=== PATIENT | female | born 1955 | race Caucasian/White ===

== ENCOUNTER 2018-04-17 14:16 | Emergency (ER) | payer OTHER ==
[2018-04-17 15:00] LABS: Absolute Lymphocytes (CBC) 0.7 K/uL (0.7-4.9); Absolute Monocytes 0.2 K/uL (0.1-1.3); Absolute Neutrophil 10.6 K/uL (1.8-8.0); Hematocrit 37.4 % (36.0-45.0); Lymphocytes % 6.1 % (15.3-44.8); MCH 31.2 pg (27.0-35.0); MCV 90.4 fL (80-100); MPV 8.7 fL (7.6-11.3); Monocytes % 1.5 % (3.3-12.3); RBC Red Blood Cell Count 4.14 M/uL (3.86-4.86)
--- NOTE | 2018-04-17 15:00 | ER ---
Nurse's Notes [facility] Name: Amna Whyte Age: 62 yrs Sex: Female : 1955 Arrival Date: 04/17/2018 Time: 14:20 Bed 4 Private MD: Diagnosis: Syncope and collapse;Encounter for adjustment and management of automatic implantable cardiac defibrillator Presentation: 04/17 14:33 Presenting complaint: EMS states: Pt had a syncopal episode due to weakness at home sg about 30 mins [employer], pt reports she felt her pacemaker defibrillator administer a shock x2, reports she was in the ER in [place] this morning and had been diagnosed with bronchitis and discharged to home. Transition of care: patient was not received from another setting of care. Onset of symptoms was April 17, 2018. Risk Assessment: Do you want to hurt yourself or someone else? Patient reports no desire to harm self or others. Initial Sepsis Screen: Does the patient meet any 2 criteria? RR > 20 per min. No. Patient's initial sepsis screen is negative. Does the patient have a suspected source of infection? Yes: Productive cough/pneumonia. 14:33 Method Of Arrival: EMS: [facility] sg 14:33 Acuity: BROOK 2 sg 14:40 Care prior to arrival: None. sg Historical: - Allergies: 14:38 Latex, Natural Rubber; sg 14:38 Cephalexin; sg - Home Meds: 14:51 amiodarone 200 mg Oral tab 1 tab once daily [Active]; Vitamin C Oral [Active]; ferrous sg gluconate 240 mg (27 mg iron) Oral tab [Active]; atorvastatin 10 mg oral tab 1 tab once daily [Active]; clopidogrel 75 mg oral tab 1 tab once daily [Active]; losartan 100 mg oral tab 1 tab once daily [Active]; carvedilol 25 mg oral tab 1 tab 2 times per day [Active]; ropinirole 0.25 mg oral tab 1 tab twice daily [Active]; aspirin 81 mg Oral TbEC 1 tab once daily [Active]; Toujeo SoloStar 300 unit/mL (1.5 mL) subcutaneous inpn 120 unit daily [Active]; Novolog 100 unit/mL Sub-Q soln 15 unit daily before each meal [Active]; torsemide 20 mg oral tab 3 tabs twice daily [Active]; - PMHx: 15:03 Hypertension; Diabetes - IDDM; Anemia; Dialysis; sg - PSHx: 14:38 CABG; ; sg - Immunization history:: Adult Immunizations up to date. - Social history:: Smoking status: Patient/guardian denies using tobacco. - Ebola Screening: : Patient negative for fever greater than or equal to 101.5 degrees Fahrenheit, and additional compatible Ebola Virus Disease symptoms Patient denies exposure to infectious person Patient denies travel to an Ebola-affected area in the 21 days before illness onset No symptoms or risks identified at this time. Screenin:40 Abuse screen: Denies threats or abuse. Denies injuries from another. Nutritional sg screening: No deficits noted. Tuberculosis screening: No symptoms or risk factors identified. Never had TB. Fall Risk None identified. Assessment: 14:41 General: Appears in no apparent distress. comfortable, well groomed, well developed, sg well nourished, Behavior is calm, cooperative, appropriate for age. Pain: Denies pain. Neuro: Level of Consciousness is awake, alert, obeys commands, Oriented to person, place, time, situation, Second Mate are equal bilaterally Moves all extremities. Speech is normal, Facial symmetry appears normal, Pupils are PERRLA. Cardiovascular: Capillary refill is brisk in bilateral fingers Patient's skin is warm and dry. Respiratory: Airway is patent Respiratory effort is even, labored, Respiratory pattern is regular, symmetrical, Breath sounds are coarse. GI: Abdomen is round non-distended, obese, Reports normal bowel habits, tolerance of fluids, tolerance of food. : No signs and/or symptoms were reported regarding the genitourinary system. EENT: No signs and/or symptoms were reported regarding the EENT system. Derm: Skin is intact, is thin, Skin is dry, Skin is pale, Skin temperature is warm. Musculoskeletal: No signs and/or symptoms reported regarding the musculoskeletal system. 15:10 Reassessment: pt reports feeling dizzy, EKG changes noted on the bedside monitor, pt sg unresponsive, a shock administered x2 via pt pacemaker defib, pt back to paced rhythm at this time, notified, pt family remains at bedside. no new orders recieved. 15:40 Reassessment: Patient appears in no apparent distress at this time. Patient and/or kr2 family updated on plan of care and expected duration. Pain level reassessed. Patient is alert, oriented x 3, equal unlabored respirations, skin warm/dry/pink. 16:17 Reassessment: Patient appears in no apparent distress at this time. Patient and/or sg family updated on plan of care and expected duration. Pain level reassessed. Patient is alert, oriented x 3, equal unlabored respirations, skin warm/dry/pink. notified pt reports feeling dizzy at this time v-fib noted on bedside monitor, pt defib x1, new orders received, pt medicated as ordered see EMAR. 17:00 Reassessment: Patient appears in no apparent distress at this time. Patient and/or sg family updated on plan of care and expected duration. Pain level reassessed. Patient is alert, oriented x 3, equal unlabored respirations, skin warm/dry/pink. Report given to [facility] for pt transport to [facility]. Vital Signs: 14:36 BP 105 / 62; Pulse 83; Resp 17; Temp 97.7; Pulse Ox 97% on R/A; Weight 120.2 kg (R); sg Pain 0/10; 16:05 BP 108 / 61; Pulse 88 MON; Resp 17; Pulse Ox 98% on 2 lpm NC; sg 16:05 Paced sg ED Course: 14:20 Patient arrived in ED. ss 14:20 Eliel Figueredo MD is Attending Physician. gs 14:33 Ramesh Hassan, JERAD is Primary Nurse. sg 14:36 Triage completed. sg 14:36 Arm band placed on. sg 14:40 Patient has correct armband on for positive identification. Placed in gown. Bed in low sg position. Call light in reach. Side rails up X2. court recording monitor on. Pulse ox on. NIBP on. offered warm blanket, pt refused at this time Head of bed elevated. 14:40 Initial lab(s) drawn, by me, sent to lab. First set of blood cultures drawn by me, sg held. Inserted saline lock: 20 gauge in left antecubital area, using aseptic technique. Blood collected. Patient maintains SpO2 saturation greater than 95% on room air. 14:45 No provider procedures requiring assistance completed. sg 14:50 CT completed. Patient moved to CT via stretcher. Patient moved back from CT. cw1 14:52 CT Head C Spine In Process Unspecified. EDMS 15:32 Notified ED physician of other patient having episodes of VTach, with kr2 pacer/defibrillator firing, Dr. Figueredo notified, no new orders at this time. 17:00 Patient transferred, IV remains in place. intact, No redness/swelling at site. sg Administered Medications: 16:17 Drug: Lidocaine Drip 2 mg/min Route: IV; Rate: calculated rate; Site: left antecubital; 17:03 Follow up: Response: No adverse reaction; Marked relief of symptoms; IV Status: sg Infusion continued upon transfer Outcome: 14:59 ER care complete, transfer ordered by . 17:00 Transferred by ground EMS to [facility], Transfer form completed. 17:00 Condition: report called to JERAD Saenz 17:00 Instructed on the need for admit, safety practices, Demonstrated understanding of instructions. 17:03 Patient left the ED. sg Signatures: Dispatcher [employer] EDPA Ramesh Hassan RN RN Michelle Mcintosh RN RN ss Woodley, Crystal cw1 Eliel Figueredo MD MD Suri Main RN RN kr2
--- NOTE | 2018-04-17 15:00 | EDPHYS ---
Physician Documentation [facility] Name: Amna Whyte Age: 62 yrs Sex: Female : 1955 Arrival Date: 04/17/2018 Time: 14:20 Bed 4 Private MD: ED Physician Eliel Figueredo HPI: 04/17 14:41 This 62 yrs old Female presents to ER via EMS with complaints of Syncope. gs 14:41 The patient has experienced syncope, became unresponsive, collapsed. Onset: The gs symptoms/episode began/occurred acutely, just prior to arrival. Duration: This was a single episode. Associated injury: Head/face:. Associated signs and symptoms: Pertinent positives: palpitations, defib fired x2. Current symptoms: Currently, the patient is not experiencing any symptoms. The patient has experienced similar episodes in the past, a few times. 14:41 The patient has been recently seen by a physician: ed dx bronchitis. gs Historical: - Allergies: 14:38 Latex, Natural Rubber; sg 14:38 Cephalexin; sg - Home Meds: 14:51 amiodarone 200 mg Oral tab 1 tab once daily [Active]; Vitamin C Oral [Active]; ferrous sg gluconate 240 mg (27 mg iron) Oral tab [Active]; atorvastatin 10 mg oral tab 1 tab once daily [Active]; clopidogrel 75 mg oral tab 1 tab once daily [Active]; losartan 100 mg oral tab 1 tab once daily [Active]; carvedilol 25 mg oral tab 1 tab 2 times per day [Active]; ropinirole 0.25 mg oral tab 1 tab twice daily [Active]; aspirin 81 mg Oral TbEC 1 tab once daily [Active]; Toujeo SoloStar 300 unit/mL (1.5 mL) subcutaneous inpn 120 unit daily [Active]; Novolog 100 unit/mL Sub-Q soln 15 unit daily before each meal [Active]; torsemide 20 mg oral tab 3 tabs twice daily [Active]; - PMHx: 15:03 Hypertension; Diabetes - IDDM; Anemia; Dialysis; sg - PSHx: 14:38 CABG; ; sg - Immunization history:: Adult Immunizations up to date. - Social history:: Smoking status: Patient/guardian denies using tobacco. - Ebola Screening: : Patient negative for fever greater than or equal to 101.5 degrees Fahrenheit, and additional compatible Ebola Virus Disease symptoms Patient denies exposure to infectious person Patient denies travel to an Ebola-affected area in the 21 days before illness onset No symptoms or risks identified at this time. ROS: 14:41 All other systems are negative. gs Exam: 14:41 Constitutional: This is a well developed, well nourished patient who is awake, alert, gs and in no acute distress. Head/Face: Normocephalic, atraumatic. Eyes: Pupils equal round and reactive to light, extra-ocular motions intact. Lids and lashes normal. Conjunctiva and sclera are non-icteric and not injected. Cornea within normal limits. Periorbital areas with no swelling, redness, or edema. ENT: Nares patent. No nasal discharge, no septal abnormalities noted. Tympanic membranes are normal and external auditory canals are clear. Oropharynx with no redness, swelling, or masses, exudates, or evidence of obstruction, uvula midline. Mucous membranes moist. Neck: Trachea midline, no thyromegaly or masses palpated, and no cervical lymphadenopathy. Supple, full range of motion without nuchal rigidity, or vertebral point tenderness. No Meningismus. Chest/axilla: Normal chest wall appearance and motion. Nontender with no deformity. No lesions are appreciated. Cardiovascular: Regular rate and rhythm with a normal S1 and S2. No gallops, murmurs, or rubs. Normal PMI, no JVD. No pulse deficits. 14:41 Respiratory: Lungs have equal breath sounds bilaterally, clear to auscultation and percussion. No rales, rhonchi or wheezes noted. No increased work of breathing, no retractions or nasal flaring. Abdomen/GI: Soft, non-tender, with normal bowel sounds. No distension or tympany. No guarding or rebound. No evidence of tenderness throughout. Back: No spinal tenderness. No costovertebral tenderness. Full range of motion. Skin: Warm, dry with normal turgor. Normal color with no rashes, no lesions, and no evidence of cellulitis. MS/ Extremity: Pulses equal, no cyanosis. Neurovascular intact. Full, normal range of motion. Neuro: Awake and alert, GCS 15, oriented to person, place, time, and situation. Cranial nerves II-XII grossly intact. Motor strength 5/5 in all extremities. Sensory grossly intact. Cerebellar exam normal. Normal gait. 14:41 ECG was reviewed by the Attending Physician. Vital Signs: 14:36 BP 105 / 62; Pulse 83; Resp 17; Temp 97.7; Pulse Ox 97% on R/A; Weight 120.2 kg (R); sg Pain 0/10; 16:05 BP 108 / 61; Pulse 88 MON; Resp 17; Pulse Ox 98% on 2 lpm NC; sg 16:05 Paced sg MDM: 14:20 Patient medically screened. gs 14:41 Differential Diagnosis: cardiac arrhythmia, emotional response, idiopathic syncope, gs vasovagal episode. Data reviewed: vital signs, nurses notes. Response to treatment: the patient's symptoms have resolved after treatment. ED course: pt request transfer to see dr frankel will see at [facility]. 04/17 14:21 Order name: Basic Metabolic Panel; Complete Time: 15:34 04/17 14:21 Order name: CBC with Diff; Complete Time: 16:35 04/17 14:21 Order name: PT-INR; Complete Time: 15:15 04/17 14:21 Order name: Troponin (emerg Dept Use Only); Complete Time: 15:34 04/17 14:27 Order name: ETOH Level; Complete Time: 15:34 04/17 15:07 Order name: Magnesium; Complete Time: 15:34 04/17 14:21 Order name: CT Head C Spine; Complete Time: 15:16 04/17 14:21 Order name: EKG; Complete Time: 14:22 04/17 14:21 Order name: Cardiac monitoring; Complete Time: 14:39 04/17 14:21 Order name: EKG - Nurse/Tech; Complete Time: 14:39 04/17 14:21 Order name: IV Saline Lock; Complete Time: 14:39 04/17 14:21 Order name: Labs collected and sent; Complete Time: 14:39 04/17 15:08 Order name: CBC Smear Scan; Complete Time: 16:35 EDNV 04/17 14:21 Order name: O2 Per Protocol; Complete Time: 14:39 04/17 14:21 Order name: O2 Sat Monitoring; Complete Time: 14:39 gs EC:41 Rate is 87 beats/min. Rhythm is regular. AL interval is prolonged. QRS interval is gs prolonged. Clinical impression: Cardiac ischemia. Interpreted by me. Administered Medications: 16:17 Drug: Lidocaine Drip 2 mg/min Route: IV; Rate: calculated rate; Site: left antecubital; sg 17:03 Follow up: Response: No adverse reaction; Marked relief of symptoms; IV Status: sg Infusion continued upon transfer Disposition: 04/17/18 14:59 Transfer ordered to Other Acute Care Facility. Diagnosis are Syncope and collapse, Encounter for adjustment and management of automatic implantable cardiac defibrillator. - Reason for transfer: Higher level of care. - Accepting physician is marlys. - Condition is Stable. - Problem is an ongoing problem. - Symptoms have improved. Critical care time excluding procedures: 14:41 Critical care time: Bedside Care: 10 minutes, Consultation: 10 minutes, Family gs Intervention: 10 minutes. Total time: 30 minutes Signatures: Dispatcher [employer] EDRamesh Chairez RN RN sg Starr, Gregory, MD MD gs Corrections: (The following items were deleted from the chart) 17:03 14:59 04/17/2018 14:59 Transfer ordered to Other Acute Care Facility. Diagnosis is sg Syncope and collapse; Encounter for adjustment and management of automatic implantable cardiac defibrillator. Reason for transfer: Higher level of care. Accepting physician is marlys. Condition is Stable. Problem is an ongoing problem. Symptoms have improved. gs
[2018-04-17 15:06] LABS: Protime INR 1.14
--- NOTE | 2018-04-17 15:14 | RAD REPORT ---
EXAM DESCRIPTION: CT - [id number] - 04/17/2018 2:52 pm CLINICAL HISTORY: Trauma, head and neck injury. Syncope. PAIN COMPARISON: No comparisons TECHNIQUE: Axial 5 mm thick images of the head were obtained. Axial 2 mm thick images of the cervical spine were obtained with sagittal and coronal reconstruction images generated and reviewed. All CT scans are performed using dose optimization technique as appropriate and may include automated exposure control or mA/KV adjustment according to patient size. FINDINGS: CT HEAD WITHOUT CONTRAST: No acute hemorrhage, hydrocephalus or extra-axial collection is identified.No areas of brain edema or midline shift. The paranasal sinuses and mastoids are essentially clear.The calvarium is intact. CT CERVICAL SPINE WITHOUT CONTRAST: No fracture or subluxation.No prevertebral soft tissues swelling is identified. IMPRESSION: No acute intracranial or cervical spine findings.
[2018-04-17 15:19] LABS: Potassium 4.4 mmol/L (3.5-5.1); Troponin (Emerg Dept Use Only) 0.06 ng/mL (0.0-0.045)
[2018-04-17 15:52] LABS: Blood Morphology Comment NOT SEEN (NOT SEEN); Platelet Estimate ADEQ; Urine White Blood Cell Casts OK
[2018-04-17] MEDS ORDERED: LIDOCAINE/D5W 2,000 MG/500 ML BAG IV ONE (16:23)
[2018-04-17 17:17] VITALS: TEMP 97.7
[2018-04-17 17:18] VITALS: BP 108/61; O2SAT 98
--- NOTE | 2018-04-17 20:20 | EKG ---
Test Date: 2018-04-17 Test Time: 14:19:50 Clinical Cytogenetics Director: RONEN MEASUREMENT RESULTS: Intervals: Rate: 87 PA: 240 QRSD: 110 QT: 408 QTc: 490 [place]: P: 68 PA: 240 QRS: -31 T: 140 INTERPRETIVE STATEMENTS: Sinus rhythm with 1st degree AV block with occasional premature ventricular complexes Left axis deviation Cannot rule out Anterior infarct, age undetermined Marked ST abnormality, possible lateral subendocardial injury Abnormal ECG Compared to ECG 01/15/2014 23:05:41 Ventricular premature complex(es) now present First degree AV block now present Left-axis deviation now present Myocardial infarct finding still present Electronically Signed On 04-17-18 20:20:13 PRIMER PRESS OPERATOR by Louis Valencia
== END 2018-04-17 17:03 ==
LOC: ER 14:16
DX: Z45.02 Encounter for adjustment and management of automatic implantable cardiac defibrillator (principal); R55 Syncope and collapse; I44.0 Atrioventricular block, first degree; I49.3 Ventricular premature depolarization; R94.31 Abnormal electrocardiogram [ECG] [EKG]; E11.9 Type 2 diabetes mellitus without complications; I10 Essential (primary) hypertension; D64.9 Anemia, unspecified; Z79.4 Long term (current) use of insulin; Z79.82 Long term (current) use of aspirin; Z79.899 Other long term (current) drug therapy; Z95.1 Presence of aortocoronary bypass graft
CPT/HCPCS: 36415; 70450; 72125; 80048; 80320; 83735; 84484; 85025; 85610; 93005; 96365; 99285; J2001

== ENCOUNTER 2018-09-05 10:40 | Emergency (ER) | payer OTHER ==
--- OUTSIDE RECORDS SUMMARY | 2018-09-05 10:45 | XMS REPORT | Clinical Summary ---
:1955 Author Organization [facility] Address [address] [place] [address] Care Team Providers Name Role Phone Joe Wallis MD Primary Care Provider Allergies Active Allergy Reactions Severity Noted Date Comments Cephalexin Itching 01/03/2015 Latex Other (See Comments) 01/03/2015 Macrolide Antibiotics 04/21/2018 Pt. Must avoid any medication that cause QT prolongation. Pt. has a defibrillator Per [employer] M[facility] Developer (Dr. Javier). Pt must not take macrolides=interaction w/defibrillator Medications Medication Sig Dispensed Refills Start Date End Date Status ascorbic acid, Take 100 mg 0 Active vitamin C, (vitamin by mouth C) 100 MG tablet daily. ferrous gluconate Take 240 mg 0 Active (FERGON) 324 MG by mouth tablet daily with breakfast. atorvastatin Take 10 mg by 0 Active (LIPITOR) 10 MG mouth daily. tablet clopidogrel Take 75 mg by 0 Active (PLAVIX) 75 mg mouth daily. tablet losartan (COZAAR) Take 100 mg 0 Active 100 MG tablet by mouth daily. carvedilol (COREG) Take 25 mg by 0 Active 25 MG tablet mouth 2 (two) times a day with meals. rOPINIRole (REQUIP) Take 0.25 mg 0 Active 0.25 MG tablet by mouth 2 (two) times a day. aspirin (ECOTRIN) Take 81 mg by 0 Active 81 MG enteric mouth daily. coated tablet insulin GLARGINE Inject 100 0 Active (TOUJEO SOLOSTAR Units under U-300 INSULIN) 300 the skin unit/mL (1.5 mL) nightly. insulin pen insulin ASPART Inject 15 0 Active (NovoLOG) 100 Units under unit/mL injection the skin 3 (three) times a day before meals. torsemide (DEMADEX) Take 60 mg by 0 Active 20 MG tablet mouth 2 (two) times a day. Three 20mg tabs twice daily amIODarone Take 200 mg 0 05/21/2018 Discontinued (PACERONE) 200 MG by mouth tablet daily. 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 Syncope 04/17/2018 Encounters Date Type Specialty Care Team Description 05/19/2018 Surgery Procedural Urrutia, Hector PCI stent [[id number] Cardiology MD Mayco (CPT)] 05/18/2018 Surgery Procedural Urrutia, Hector PCI stent [[id number] Cardiology MD Mayco (CPT)] 05/17/2018 Surgery Procedural Urrutia, Hector Left heart cath w lv Cardiology MD Mayco gram cors [[id number] (CPT)] 05/14/2018 - Hospital Encounter Intensive Care Curt Chaves Ventricular tachyarrhythmia (HCC) (Primary Dx); 05/21/2018 Sangeeth Dizziness; MD Benny Nausea and vomiting, intractability of vomiting not specified, unspecified vomiting type Harper Fuller MD Joglekar, Samir P., MD 04/22/2018 Documentation Nephrology Garrett Black MD 04/17/2018 - Hospital Encounter General Internal [facility] Carlos bnauelos, Syncope, unspecified 04/21/2018 Medicine syncope type (Primary Sander Huang Dx) MD Jani after 09/04/2017 Social History Tobacco Use Types Packs/Day Years Used Date Never Smoker Smokeless Tobacco: Never Used Comments: spouse smokes Alcohol Use Drinks/Week oz/Week Comments No Alcohol Habits Answer Date Recorded How often do you have a drink containing alcohol? Never 04/18/2018 How many drinks containing alcohol do you have on a typical Not asked day when you are drinking? How often do you have six or more drinks on one occasion? Not asked Sex Assigned at Date Recorded Not on file Job Start Date Occupation Industry Not on file Not on file Not on file Travel History Travel Start Travel End No recent travel history available. Last Filed Vital Signs Vital Sign Reading Time Taken Blood Pressure 130/62 05/21/2018 11:00 AM [employer] Pulse 58 05/21/2018 11:00 AM [employer] Temperature 37.5 C (99.5 F) 05/21/2018 8:00 AM [employer] Respiratory Rate 26 05/21/2018 11:00 AM [employer] Oxygen Saturation 96% 05/21/2018 11:00 AM [employer] Inhaled Oxygen Concentration - - Weight 105 kg (231 lb 7.7 oz) 05/21/2018 4:00 AM [employer] Height 165.1 cm (5' 5") 05/15/2018 12:00 AM [employer] Body Mass Index 38.52 05/21/2018 4:00 AM [employer] Plan of Treatment Health Maintenance Due Date Last Done Comments CERVICAL CANCER SCREENING 1974 BREAST CANCER SCREENING 2003 COLON CANCER SCREENING 2003 SHINGLES VACCINES (#1) 2003 65+ PNEUMOCOCCAL VACCINE (1 of 2 - PCV13) 2018 PNEUMOCOCCAL POLYSACCHARIDE VACCINE AGE 65 AND OVER 2018 INFLUENZA VACCINE 12/29/2018 Implants Implanted Type Area 911 Operator Device Shelf Model / Identifier Expiration Serial / Date Lot System Athrctmy Rotn 0.58in 135cm 1.5mm Rotalink [address] - [id number] Cardiovascular N/A: BS 02/12/2020 [id number] / Implanted: Qty: 1 on 05/19/2018 by Hector Urrutia MD Implants N/A INTERVENTIONAL / CARDIOLOGY [id number] System Athrctmy Rotn 0.58in 135cm 1.25mm Rotalink Pl - [id number] Cardiovascular N/A: BS 01/22/2020 [id number] / Implanted: Qty: 1 on 05/19/2018 by Hector Urrutia MD Implants N/A INTERVENTIONAL / CARDIOLOGY [id number] Stent Coronary Syst Synergy (Mr) 3.00mm X 16mm - [id number] Coronary Stents N /A: [facility] [place]09/2020 [id number] / Implanted: Qty: 1 on 05/19/2018 by Hector Urrutia MD N/A INTERVENTIONAL / CARDIOLOGY [id number] Procedures Procedure Name Priority Date/Time Associated Comments Diagnosis XR CHEST 1 VW PORTABLE Routine 05/21/2018 8:54 Results for this AM [employer] procedure are in the results section. POC GLUCOSE Routine 05/21/2018 7:17 Results for this AM [employer] procedure are in the results section. ESTIMATED GFR Routine 05/21/2018 3:40 Results for this AM [employer] procedure are in the results section. PARTIAL THROMBOPLASTIN Routine 05/21/2018 3:40 Results for this TIME (PTT) AM [employer] procedure are in the results section. PROTHROMBIN TIME WITH Routine 05/21/2018 3:40 Results for this INR AM [employer] procedure are in the results section. PHOSPHORUS LEVEL Routine 05/21/2018 3:40 Results for this AM [employer] procedure are in the results section. MAGNESIUM LEVEL Routine 05/21/2018 3:40 Results for this AM [employer] procedure are in the results section. IONIZED CALCIUM Routine 05/21/2018 3:40 Results for this AM [employer] procedure are in the results section. HC COMPLETE BLD COUNT Routine 05/21/2018 3:40 Results for this W/AUTO DIFF AM [employer] procedure are in the results section. BASIC METABOLIC PANEL Routine 05/21/2018 3:40 Results for this AM [employer] procedure are in the results section. POC GLUCOSE Routine 05/20/2018 8:48 Results for this PM [employer] procedure are in the results section. POC GLUCOSE Routine 05/20/2018 4:52 Results for this PM [employer] procedure are in the results section. ECG 12-LEAD Routine 05/20/2018 3:40 Results for this PM [employer] procedure are in the results section. POC GLUCOSE Routine 05/20/2018 12:19 Results for this PM [employer] procedure are in the results section. POC GLUCOSE Routine 05/20/2018 8:04 Results for this AM [employer] procedure are in the results section. POC GLUCOSE Routine 05/20/2018 4:53 Results for this AM [employer] procedure are in the results section. XR CHEST 1 VW PORTABLE Routine 05/20/2018 4:37 Results for this AM [employer] procedure are in the results section. ESTIMATED GFR Routine 05/20/2018 4:25 Results for this AM [employer] procedure are in the results section. PROTHROMBIN TIME WITH Routine 05/20/2018 4:25 Results for this INR AM [employer] procedure are in the results section. PARTIAL THROMBOPLASTIN Routine 05/20/2018 4:25 Results for this TIME (PTT) AM [employer] procedure are in the results section. PHOSPHORUS LEVEL Routine 05/20/2018 4:25 Results for this AM [employer] procedure are in the results section. MAGNESIUM LEVEL Routine 05/20/2018 4:25 Results for this AM [employer] procedure are in the results section. IONIZED CALCIUM Routine 05/20/2018 4:25 Results for this AM [employer] procedure are in the results section. HC COMPLETE BLD COUNT Routine 05/20/2018 4:25 Results for this W/AUTO DIFF AM [employer] procedure are in the results section. BASIC METABOLIC PANEL Routine 05/20/2018 4:25 Results for this AM [employer] procedure are in the results section. POC GLUCOSE Routine 05/20/2018 12:57 Results for this AM [employer] procedure are in the results section. POC GLUCOSE Routine 05/19/2018 10:02 Results for this PM [employer] procedure are in the results section. POC GLUCOSE Routine 05/19/2018 9:15 Results for this PM [employer] procedure are in the results section. POC GLUCOSE Routine 05/19/2018 8:05 Results for this PM [employer] procedure are in the results section. ACTIVATED CLOTTING Routine 05/19/2018 8:01 Results for this TIME, LOW RESPONSE PM [employer] procedure are in the results section. POC GLUCOSE Routine 05/19/2018 6:01 Results for this PM [employer] procedure are in the results section. POC GLUCOSE Routine 05/19/2018 5:15 Results for this PM [employer] procedure are in the results section. POC GLUCOSE Routine 05/19/2018 4:27 Results for this PM [employer] procedure are in the results section. CV PCI STENT Routine 05/19/2018 3:52 Results for this PM [employer] procedure are in the results section. ACTIVATED CLOTTING Routine 05/19/2018 3:41 Results for this TIME, LOW RESPONSE PM [employer] procedure are in the results section. ACTIVATED CLOTTING Routine 05/19/2018 3:32 Results for this TIME, LOW RESPONSE PM [employer] procedure are in the results section. ACTIVATED CLOTTING Routine 05/19/2018 3:27 Results for this TIME, LOW RESPONSE PM [employer] procedure are in the results section. ACTIVATED CLOTTING Routine 05/19/2018 2:56 Results for this TIME, LOW RESPONSE PM [employer] procedure are in the results section. POC GLUCOSE Routine 05/19/2018 2:06 Results for this PM [employer] procedure are in the results section. POC GLUCOSE Routine 05/19/2018 12:57 Results for this PM [employer] procedure are in the results section. POC GLUCOSE Routine 05/19/2018 12:08 Results for this PM [employer] procedure are in the results section. POC GLUCOSE Routine 05/19/2018 11:07 Results for this AM [employer] procedure are in the results section. POC GLUCOSE Routine 05/19/2018 10:35 Results for this AM [employer] procedure are in the results section. POC GLUCOSE Routine 05/19/2018 10:09 Results for this AM [employer] procedure are in the results section. LIDOCAINE LEVEL STAT 05/19/2018 9:27 Results for this AM [employer] procedure are in the results section. POC GLUCOSE Routine 05/19/2018 9:10 Results for this AM [employer] procedure are in the results section. POC GLUCOSE Routine 05/19/2018 8:04 Results for this AM [employer] procedure are in the results section. POC GLUCOSE Routine 05/19/2018 6:58 Results for this AM [employer] procedure are in the results section. POC GLUCOSE Routine 05/19/2018 4:54 Results for this AM [employer] procedure are in the results section. ESTIMATED GFR Routine 05/19/2018 4:30 Results for this AM [employer] procedure are in the results section. HEPATITIS B SURFACE Routine 05/19/2018 4:30 Results for this ANTIGEN AM [employer] procedure are in the results section. PHOSPHORUS LEVEL Routine 05/19/2018 4:30 Results for this AM [employer] procedure are in the results section. MAGNESIUM LEVEL Routine 05/19/2018 4:30 Results for this AM [employer] procedure are in the results section. IONIZED CALCIUM Routine 05/19/2018 4:30 Results for this AM [employer] procedure are in the results section. HC COMPLETE BLD COUNT Routine 05/19/2018 4:30 Results for this W/AUTO DIFF AM [employer] procedure are in the results section. BASIC METABOLIC PANEL Routine 05/19/2018 4:30 Results for this AM [employer] procedure are in the results section. POC GLUCOSE Routine 05/19/2018 3:57 Results for this AM [employer] procedure are in the results section. POC GLUCOSE Routine 05/19/2018 3:00 Results for this AM [employer] procedure are in the results section. POC GLUCOSE Routine 05/19/2018 1:57 Results for this AM [employer] procedure are in the results section. POC GLUCOSE Routine 05/19/2018 1:20 Results for this AM [employer] procedure are in the results section. POC GLUCOSE Routine 05/18/2018 11:55 Results for this PM [employer] procedure are in the results section. POC GLUCOSE Routine 05/18/2018 11:18 Results for this PM [employer] procedure are in the results section. POC GLUCOSE Routine 05/18/2018 10:04 Results for this PM [employer] procedure are in the results section. POC GLUCOSE Routine 05/18/2018 8:40 Results for this PM [employer] procedure are in the results section. URINALYSIS SCREEN AND Routine 05/18/2018 5:40 Results for this MICROSCOPY, WITH REFLEX PM [employer] procedure are in TO CULTURE the results section. GRAM STAIN Routine 05/18/2018 5:21 Results for this PM [employer] procedure are in the results section. URINE CULTURE Routine 05/18/2018 5:21 Results for this PM [employer] procedure are in the results section. POC GLUCOSE Routine 05/18/2018 5:20 Results for this PM [employer] procedure are in the results section. POC GLUCOSE Routine 05/18/2018 2:27 Results for this PM [employer] procedure are in the results section. CV PCI STENT Routine 05/18/2018 1:16 Results for this PM [employer] procedure are in the results section. POC GLUCOSE Routine 05/18/2018 11:23 Results for this AM [employer] procedure are in the results section. XR ABDOMEN 1 VW Routine 05/18/2018 10:57 Results for this AM [employer] procedure are in the results section. POC GLUCOSE Routine 05/18/2018 10:28 Results for this AM [employer] procedure are in the results section. POC GLUCOSE Routine 05/18/2018 9:04 Results for this AM [employer] procedure are in the results section. POC GLUCOSE Routine 05/18/2018 8:05 Results for this AM [employer] procedure are in the results section. POC GLUCOSE Routine 05/18/2018 6:53 Results for this AM [employer] procedure are in the results section. POC GLUCOSE Routine 05/18/2018 6:21 Results for this AM [employer] procedure are in the results section. POC GLUCOSE Routine 05/18/2018 4:57 Results for this AM [employer] procedure are in the results section. ESTIMATED GFR Routine 05/18/2018 4:00 Results for this AM [employer] procedure are in the results section. MAGNESIUM LEVEL Routine 05/18/2018 4:00 Results for this AM [employer] procedure are in the results section. IONIZED CALCIUM Routine 05/18/2018 4:00 Results for this AM [employer] procedure are in the results section. HC COMPLETE BLD COUNT Routine 05/18/2018 4:00 Results for this W/AUTO DIFF AM [employer] procedure are in the results section. BASIC METABOLIC PANEL Routine 05/18/2018 4:00 Results for this AM [employer] procedure are in the results section. LIDOCAINE LEVEL Timed 05/18/2018 4:00 Results for this AM [employer] procedure are in the results section. POC GLUCOSE Routine 05/18/2018 3:56 Results for this AM [employer] procedure are in the results section. XR CHEST 1 VW PORTABLE Routine 05/18/2018 3:55 Results for this [employer] procedure are in the results section. POC GLUCOSE Routine 05/18/2018 2:59 Results for this AM [employer] procedure are in the results section. POC GLUCOSE Routine 05/18/2018 1:53 Results for this AM [employer] procedure are in the results section. POC GLUCOSE Routine 05/18/2018 1:01 Results for this [employer] procedure are in the results section. POC GLUCOSE Routine 05/17/2018 11:01 Results for this PM [employer] procedure are in the results section. POC GLUCOSE Routine 05/17/2018 9:24 Results for this PM [employer] procedure are in the results section. ACTIVATED CLOTTING Routine 05/17/2018 7:43 Results for this TIME, LOW RESPONSE PM [employer] procedure are in the results section. POC GLUCOSE Routine 05/17/2018 7:15 Results for this PM [employer] procedure are in the results section. POC GLUCOSE Routine 05/17/2018 5:41 Results for this PM [employer] procedure are in the results section. CV LEFT HEART CATH LV Routine 05/17/2018 5:16 Results for this GRAM WITH CORS PM [employer] procedure are in the results section. POC GLUCOSE Routine 05/17/2018 2:56 Results for this PM [employer] procedure are in the results section. POC GLUCOSE Routine 05/17/2018 2:04 Results for this PM [employer] procedure are in the results section. POC GLUCOSE Routine 05/17/2018 1:05 Results for this PM [employer] procedure are in the results section. POC GLUCOSE Routine 05/17/2018 12:07 Results for this PM [employer] procedure are in the results section. POC GLUCOSE Routine 05/17/2018 10:51 Results for this [employer] procedure are in the results section. ECG 12-LEAD Routine 05/17/2018 8:59 Results for this [employer] procedure are in the results section. POC GLUCOSE Routine 05/17/2018 8:10 Results for this AM [employer] procedure are in the results section. XR CHEST 1 VW PORTABLE Routine 05/17/2018 4:29 Results for this AM [employer] procedure are in the results section. ESTIMATED GFR Routine 05/17/2018 3:00 Results for this AM [employer] procedure are in the results section. MAGNESIUM LEVEL Routine 05/17/2018 3:00 Results for this AM [employer] procedure are in the results section. IONIZED CALCIUM Routine 05/17/2018 3:00 Results for this AM [employer] procedure are in the results section. HC COMPLETE BLD COUNT Routine 05/17/2018 3:00 Results for this W/AUTO DIFF AM [employer] procedure are in the results section. LIDOCAINE LEVEL Routine 05/17/2018 3:00 Results for this AM [employer] procedure are in the results section. COMPREHENSIVE METABOLIC Routine 05/17/2018 3:00 Results for this PANEL [employer] procedure are in the results section. POC GLUCOSE Routine 05/16/2018 8:29 Results for this PM [employer] procedure are in the results section. ESTIMATED GFR STAT 05/16/2018 5:40 Results for this PM [employer] procedure are in the results section. MAGNESIUM LEVEL STAT 05/16/2018 5:40 Results for this PM [employer] procedure are in the results section. IONIZED CALCIUM STAT 05/16/2018 5:40 Results for this PM [employer] procedure are in the results section. BASIC METABOLIC PANEL STAT 05/16/2018 5:40 Results for this PM [employer] procedure are in the results section. POC GLUCOSE Routine 05/16/2018 4:43 Results for this PM [employer] procedure are in the results section. POC GLUCOSE Routine 05/16/2018 11:39 Results for this [employer] procedure are in the results section. ECG 12-LEAD Routine 05/16/2018 9:52 Results for this [employer] procedure are in the results section. POC GLUCOSE Routine 05/16/2018 7:47 Results for this [employer] procedure are in the results section. ESTIMATED GFR Routine 05/16/2018 2:35 Results for this [employer] procedure are in the results section. COMPREHENSIVE METABOLIC Routine 05/16/2018 2:35 Results for this PANEL [employer] procedure are in the results section. MAGNESIUM LEVEL Routine 05/16/2018 2:35 Results for this AM [employer] procedure are in the results section. IONIZED CALCIUM Routine 05/16/2018 2:35 Results for this [employer] procedure are in the results section. HC COMPLETE BLD COUNT Routine 05/16/2018 2:35 Results for this W/AUTO DIFF AM [employer] procedure are in the results section. POC GLUCOSE Routine 05/15/2018 8:56 Results for this PM [employer] procedure are in the results section. POC GLUCOSE Routine 05/15/2018 5:40 Results for this PM [employer] procedure are in the results section. POC GLUCOSE Routine 05/15/2018 5:07 Results for this PM [employer] procedure are in the results section. POC GLUCOSE Routine 05/15/2018 11:29 Results for this [employer] procedure are in the results section. XR CHEST 1 VW PORTABLE Routine 05/15/2018 9:45 Results for this AM [employer] procedure are in the results section. URINALYSIS SCREEN AND STAT 05/15/2018 9:00 Results for this MICROSCOPY, WITH REFLEX AM [employer] procedure are in TO CULTURE the results section. URINE CULTURE STAT 05/15/2018 9:00 Results for this AM [employer] procedure are in the results section. ECG 12-LEAD Routine 05/15/2018 8:13 Results for this AM [employer] procedure are in the results section. ECG 12-LEAD Routine 05/15/2018 8:13 Results for this AM [employer] procedure are in the results section. POC GLUCOSE Routine 05/15/2018 7:44 Results for this AM [employer] procedure are in the results section. POC GLUCOSE Routine 05/15/2018 5:00 Results for this AM [employer] procedure are in the results section. TROPONIN Routine 05/15/2018 3:30 Results for this AM [employer] procedure are in the results section. ESTIMATED GFR Routine 05/15/2018 3:30 Results for this AM [employer] procedure are in the results section. COMPREHENSIVE METABOLIC Routine 05/15/2018 3:30 Results for this PANEL [employer] procedure are in the results section. PARTIAL THROMBOPLASTIN Routine 05/15/2018 3:30 Results for this TIME (PTT) AM [employer] procedure are in the results section. PROTHROMBIN TIME WITH Routine 05/15/2018 3:30 Results for this INR AM [employer] procedure are in the results section. PHOSPHORUS LEVEL Routine 05/15/2018 3:30 Results for this AM [employer] procedure are in the results section. MAGNESIUM LEVEL Routine 05/15/2018 3:30 Results for this AM [employer] procedure are in the results section. IONIZED CALCIUM Routine 05/15/2018 3:30 Results for this AM [employer] procedure are in the results section. HC COMPLETE BLD COUNT Routine 05/15/2018 3:30 Results for this W/AUTO DIFF AM [employer] procedure are in the results section. POC GLUCOSE Routine 05/15/2018 12:19 Results for this [employer] procedure are in the results section. TROPONIN Timed 05/14/2018 11:00 Results for this PM [employer] procedure are in the results section. ECG 12-LEAD STAT 05/14/2018 10:09 Results for this [employer] procedure are in the results section. ECG 12-LEAD STAT 05/14/2018 9:41 Results for this [employer] procedure are in the results section. XR CHEST 1 VW PORTABLE STAT 05/14/2018 9:19 Results for this [employer] procedure are in the results section. CT HEAD WO CONTRAST STAT 05/14/2018 8:24 Results for this [employer] procedure are in the results section. ECG 12-LEAD STAT 05/14/2018 7:40 Results for this [employer] procedure are in the results section. MAGNESIUM LEVEL STAT 05/14/2018 7:40 Results for this [employer] procedure are in the results section. ESTIMATED GFR STAT 05/14/2018 7:40 Results for this [employer] procedure are in the results section. B NATRIURETIC PEPTIDE STAT 05/14/2018 7:40 Results for this [employer] procedure are in the results section. LIPASE LEVEL STAT 05/14/2018 7:40 Results for this [employer] procedure are in the results section. TROPONIN STAT 05/14/2018 7:40 Results for this [employer] procedure are in the results section. CREATINE KINASE, TOTAL STAT 05/14/2018 7:40 Results for this (CPK) [employer] procedure are in the results section. COMPREHENSIVE METABOLIC STAT 05/14/2018 7:40 Results for this PANEL [employer] procedure are in the results section. PARTIAL THROMBOPLASTIN STAT 05/14/2018 7:40 Results for this TIME (PTT) PM [employer] procedure are in the results section. PROTHROMBIN TIME WITH STAT 05/14/2018 7:40 Results for this INR [facility] [employer] procedure are in the results section. HC COMPLETE BLD COUNT STAT 05/14/2018 7:40 Results for this W/AUTO DIFF [facility] [employer] procedure are in the results section. ECG ED PRELIMINARY Routine 05/14/2018 7:37 Results for this INTERPRETATION [facility] [employer] procedure are in the results section. ECG ED PRELIMINARY Routine 05/14/2018 7:37 Results for this INTERPRETATION [facility] [employer] procedure are in the results section. ECG ED PRELIMINARY Routine 05/14/2018 7:37 Results for this INTERPRETATION [facility] [employer] [employer] procedure are in the results section. KS CRITICAL CARE, E/M Routine 05/14/2018 7:37 Results for this 30-74 MINUTES [facility] [employer] procedure are in the results section. POC GLUCOSE Routine 04/21/2018 11:43 Results for this AM [employer] procedure are in the results section. POC GLUCOSE Routine 04/21/2018 9:38 Results for this [facility] [employer] procedure are in the results section. POC GLUCOSE Routine 04/21/2018 7:37 Results for this [facility] [employer] procedure are in the results section. TROPONIN Routine 04/21/2018 6:10 Results for this [facility] [employer] [employer] procedure are in the results section. ESTIMATED GFR Routine 04/21/2018 6:10 Results for this [employer] procedure are in the results section. COMPREHENSIVE METABOLIC Routine 04/21/2018 6:10 Results for this PANEL [facility] [employer] [employer] procedure are in the results section. HC COMPLETE BLD COUNT Routine 04/21/2018 6:10 Results for this W/AUTO DIFF [facility] [employer] procedure are in the results section. POC GLUCOSE Routine 04/20/2018 8:49 Results for this [facility] [employer] procedure are in the results section. POC GLUCOSE Routine 04/20/2018 4:27 Results for this [facility] [employer] procedure are in the results section. POC GLUCOSE Routine 04/20/2018 1:04 Results for this [facility] [employer] procedure are in the results section. POC GLUCOSE Routine 04/20/2018 9:01 Results for this [facility] [employer] procedure are in the results section. POC GLUCOSE Routine 04/20/2018 6:34 Results for this [facility] [employer] procedure are in the results section. ESTIMATED GFR Routine 04/20/2018 5:30 Results for this [employer] procedure are in the results section. PARTIAL THROMBOPLASTIN Routine 04/20/2018 5:30 Results for this TIME (PTT) [facility] [employer] [employer] procedure are in the results section. PROTHROMBIN TIME WITH Routine 04/20/2018 5:30 Results for this INR [facility] [employer] procedure are in the results section. PHOSPHORUS LEVEL Routine 04/20/2018 5:30 Results for this [employer] procedure are in the results section. MAGNESIUM LEVEL Routine 04/20/2018 5:30 Results for this [employer] procedure are in the results section. IONIZED CALCIUM Routine 04/20/2018 5:30 Results for this [facility] [employer] procedure are in the results section. HC COMPLETE BLD COUNT Routine 04/20/2018 5:30 Results for this W/AUTO DIFF [facility] [employer] procedure are in the results section. BASIC METABOLIC PANEL Routine 04/20/2018 5:30 Results for this [employer] procedure are in the results section. HEPATITIS B SURFACE AB, Routine 04/20/2018 5:30 Results for this QUANTITATIVE [employer] procedure are in the results section. HEPATITIS B SURFACE Routine 04/20/2018 5:30 Results for this ANTIBODY [facility] [employer] procedure are in the results section. HEPATITIS B SURFACE Routine 04/20/2018 5:30 Results for this ANTIGEN [facility] [employer] procedure are in the results section. POC GLUCOSE Routine 04/20/2018 5:20 Results for this [facility] [employer] procedure are in the results section. POC GLUCOSE Routine 04/20/2018 4:08 Results for this [employer] procedure are in the results section. XR CHEST 1 VW PORTABLE Routine 04/20/2018 3:58 Results for this [employer] procedure are in the results section. POC GLUCOSE Routine 04/20/2018 3:01 Results for this [facility] [employer] procedure are in the results section. POC GLUCOSE Routine 04/20/2018 1:54 Results for this [employer] procedure are in the results section. POC GLUCOSE Routine 04/20/2018 12:48 Results for this [employer] procedure are in the results section. POC GLUCOSE Routine 04/19/2018 11:59 Results for this [facility] [employer] procedure are in the results section. POC GLUCOSE Routine 04/19/2018 10:37 Results for this [facility] [employer] procedure are in the results section. POC GLUCOSE Routine 04/19/2018 9:20 Results for this [facility] [employer] procedure are in the results section. POC GLUCOSE Routine 04/19/2018 9:19 Results for this [facility] [employer] procedure are in the results section. POC GLUCOSE Routine 04/19/2018 4:25 Results for this [facility] [employer] procedure are in the results section. POC GLUCOSE Routine 04/19/2018 11:05 Results for this [facility] [employer] procedure are in the results section. POC GLUCOSE Routine 04/19/2018 9:08 Results for this [employer] procedure are in the results section. ECG 12-LEAD Routine 04/19/2018 8:18 [facility] [employer] [employer] POC GLUCOSE Routine 04/19/2018 7:04 Results for this [facility] [employer] procedure are in the results section. POC GLUCOSE Routine 04/19/2018 6:04 Results for this [employer] procedure are in the results section. POC GLUCOSE Routine 04/19/2018 4:48 Results for this [employer] procedure are in the results section. XR CHEST 1 VW PORTABLE Routine 04/19/2018 4:29 Results for this [employer] procedure are in the results section. ESTIMATED GFR Routine 04/19/2018 4:00 Results for this [employer] procedure are in the results section. COMPREHENSIVE METABOLIC Routine 04/19/2018 4:00 Results for this PANEL [facility] [employer] procedure are in the results section. TROPONIN Routine 04/19/2018 4:00 Results for this [employer] procedure are in the results section. MAGNESIUM LEVEL Routine 04/19/2018 4:00 Results for this [facility] [employer] procedure are in the results section. PROTHROMBIN TIME WITH Routine 04/19/2018 4:00 Results for this INR [facility] [employer] procedure are in the results section. PHOSPHORUS LEVEL Routine 04/19/2018 4:00 Results for this [facility] [employer] procedure are in the results section. IONIZED CALCIUM Routine 04/19/2018 4:00 Results for this [facility] [employer] procedure are in the results section. HC COMPLETE BLD COUNT Routine 04/19/2018 4:00 Results for this W/AUTO DIFF [facility] [employer] procedure are in the results section. POC GLUCOSE Routine 04/19/2018 3:03 Results for this [facility] [employer] procedure are in the results section. POC GLUCOSE Routine 04/19/2018 1:52 Results for this [employer] procedure are in the results section. POC GLUCOSE Routine 04/19/2018 1:04 Results for this [facility] [employer] procedure are in the results section. US ABDOMEN COMPLETE Routine 04/19/2018 12:54 Results for this [employer] procedure are in the results section. POC GLUCOSE Routine 04/18/2018 11:57 Results for this [facility] [employer] [employer] procedure are in the results section. POC GLUCOSE Routine 04/18/2018 11:10 Results for this [facility] [employer] procedure are in the results section. POC GLUCOSE Routine 04/18/2018 9:59 Results for this [facility] [employer] procedure are in the results section. POC GLUCOSE Routine 04/18/2018 9:01 Results for this [facility] [employer] procedure are in the results section. POC GLUCOSE Routine 04/18/2018 8:11 Results for this [facility] [employer] procedure are in the results section. POC GLUCOSE Routine 04/18/2018 7:17 Results for this [facility] [employer] procedure are in the results section. LIPASE LEVEL STAT 04/18/2018 6:30 Results for this [facility] [employer] procedure are in the results section. AMYLASE LEVEL STAT 04/18/2018 6:30 Results for this [facility] [employer] [employer] procedure are in the results section. ESTIMATED GFR STAT 04/18/2018 6:30 Results for this [facility] [employer] procedure are in the results section. BETA HYDROXYBUTYRATE STAT 04/18/2018 6:30 Results for this [facility] [employer] procedure are in the results section. BASIC METABOLIC PANEL STAT 04/18/2018 6:30 Results for this [facility] [employer] procedure are in the results section. POC GLUCOSE Routine 04/18/2018 5:19 Results for this [facility] [employer] procedure are in the results section. ECHOCARDIOGRAM 2D Routine 04/18/2018 5:18 Results for this COMPLETE W MMODE [facility] [employer] [employer] procedure are in SPECTRAL COLOR DOPPLER the results (27078) section. TROPONIN STAT 04/18/2018 4:49 Results for this [facility] [employer] procedure are in the results section. LIDOCAINE LEVEL STAT 04/18/2018 4:49 Results for this [facility] [employer] [employer] procedure are in the results section. ARTERIAL BLOOD GAS Routine 04/18/2018 4:49 Results for this [facility] [employer] procedure are in the results section. HEPATITIS B SURFACE AB, Routine 04/18/2018 4:49 Results for this QUANTITATIVE [facility] [employer] procedure are in the results section. KS INSERT Routine 04/18/2018 4:27 Syncope, Results for this CATH,ART,PERCUT,SHORTTE [facility] [employer] [employer] unspecified syncope procedure are in RM type the results section. ARTERIAL BLOOD GAS STAT 04/18/2018 3:49 Results for this [facility] [employer] [employer] procedure are in the results section. POC GLUCOSE Routine 04/18/2018 12:51 Results for this [facility] [employer] [employer] procedure are in the results section. TROPONIN STAT 04/18/2018 12:11 Results for this [facility] [employer] [employer] procedure are in the results section. POC GLUCOSE Routine 04/18/2018 9:06 Results for this [facility] [employer] [employer] procedure are in the results section. POC GLUCOSE Routine 04/18/2018 8:01 Results for this [facility] [employer] [employer] procedure are in the results section. POC GLUCOSE Routine 04/18/2018 7:02 Results for this [facility] [employer] procedure are in the results section. POC GLUCOSE Routine 04/18/2018 6:07 Results for this [facility] [employer] [employer] procedure are in the results section. ECG 12-LEAD Routine 04/18/2018 5:29 Results for this [facility] [employer] [employer] procedure are in the results section. POC GLUCOSE Routine 04/18/2018 5:05 Results for this [facility] [employer] [employer] procedure are in the results section. POC GLUCOSE Routine 04/18/2018 4:09 Results for this [facility] [employer] [employer] procedure are in the results section. POC GLUCOSE Routine 04/18/2018 3:24 Results for this [facility] [employer] procedure are in the results section. XR CHEST 1 VW PORTABLE Routine 04/18/2018 3:02 Results for this [facility] [employer] [employer] procedure are in the results section. HEMOGLOBIN A1C Timed 04/18/2018 2:45 Results for this [facility] [employer] procedure are in the results section. ESTIMATED GFR Timed 04/18/2018 2:45 Results for this [facility] [employer] procedure are in the results section. BETA HYDROXYBUTYRATE STAT 04/18/2018 2:45 Results for this [employer] procedure are in the results section. PARTIAL THROMBOPLASTIN Timed 04/18/2018 2:45 Results for this TIME (PTT) [facility] [employer] [employer] procedure are in the results section. PROTHROMBIN TIME WITH Timed 04/18/2018 2:45 Results for this INR [facility] [employer] [employer] procedure are in the results section. PHOSPHORUS LEVEL Timed 04/18/2018 2:45 Results for this [facility] [employer] procedure are in the results section. IONIZED CALCIUM Timed 04/18/2018 2:45 Results for this [facility] [employer] [employer] procedure are in the results section. TROPONIN Timed 04/18/2018 2:45 Results for this [employer] procedure are in the results section. LACTIC ACID LEVEL, Timed 04/18/2018 2:45 Results for this SEPSIS - NOW AND REPEAT [facility] [employer] [employer] procedure are in 2X EVERY 3 HOURS the results section. THYROID STIMULATING Timed 04/18/2018 2:45 Results for this HORMONE [facility] [employer] procedure are in the results section. CBC WITH PLATELET AND Timed 04/18/2018 2:45 Results for this DIFFERENTIAL [facility] [employer] procedure are in the results section. MAGNESIUM LEVEL Timed 04/18/2018 2:45 Results for this [facility] [employer] [employer] procedure are in the results section. COMPREHENSIVE METABOLIC Timed 04/18/2018 2:45 Results for this PANEL [facility] [employer] [employer] procedure are in the results section. LIDOCAINE LEVEL Timed 04/18/2018 2:45 Results for this [facility] [employer] [employer] procedure are in the results section. POC GLUCOSE Routine 04/18/2018 2:27 Results for this [facility] [employer] procedure are in the results section. POC GLUCOSE Routine 04/18/2018 1:13 Results for this [facility] [employer] procedure are in the results section. CONSULT TO OSTOMY CARE Routine 04/17/2018 11:57 NURSE [facility] TROPONIN Timed 04/17/2018 11:50 Results for this [facility] [employer] [employer] procedure are in the results section. LACTIC ACID LEVEL, Timed 04/17/2018 11:50 Results for this SEPSIS - NOW AND REPEAT [facility] [employer] [employer] procedure are in 2X EVERY 3 HOURS the results section. POC GLUCOSE Routine 04/17/2018 11:28 Results for this [facility] [employer] [employer] procedure are in the results section. BLOOD CULTURE, AEROBIC Routine 04/17/2018 9:44 Results for this & ANAEROBIC [facility] [employer] [employer] procedure are in the results section. POC GLUCOSE Routine 04/17/2018 9:36 Results for this [facility] [employer] [employer] procedure are in the results section. BLOOD CULTURE, AEROBIC Routine 04/17/2018 9:35 Results for this & ANAEROBIC [facility] [employer] [employer] procedure are in the results section. POC GLUCOSE Routine 04/17/2018 8:09 Results for this [facility] [employer] [employer] procedure are in the results section. CT HEAD WO CONTRAST STAT 04/17/2018 8:03 Results for this [facility] [employer] procedure are in the results section. XR CHEST 1 VW PORTABLE STAT 04/17/2018 7:21 Results for this [facility] [employer] procedure are in the results section. LIDOCAINE LEVEL Routine 04/17/2018 7:00 Results for this [facility] [employer] procedure are in the results section. THYROID STIMULATING Routine 04/17/2018 7:00 Results for this HORMONE [facility] [employer] [employer] procedure are in the results section. ESTIMATED GFR STAT 04/17/2018 7:00 Results for this [facility] [employer] procedure are in the results section. TYPE AND SCREEN Routine 04/17/2018 7:00 Results for this [facility] [employer] [employer] procedure are in the results section. B NATRIURETIC PEPTIDE STAT 04/17/2018 7:00 Results for this [facility] [employer] procedure are in the results section. TROPONIN STAT 04/17/2018 7:00 Results for this [facility] [employer] procedure are in the results section. COMPREHENSIVE METABOLIC STAT 04/17/2018 7:00 Results for this PANEL [facility] [employer] [employer] procedure are in the results section. LACTIC ACID LEVEL STAT 04/17/2018 7:00 Results for this [facility] [employer] procedure are in the results section. PARTIAL THROMBOPLASTIN STAT 04/17/2018 7:00 Results for this TIME (PTT) [facility] [employer] [employer] procedure are in the results section. PROTHROMBIN TIME WITH STAT 04/17/2018 7:00 Results for this INR [facility] [employer] [employer] procedure are in the results section. PHOSPHORUS LEVEL STAT 04/17/2018 7:00 Results for this [employer] procedure are in the results section. MAGNESIUM LEVEL STAT 04/17/2018 7:00 Results for this [facility] [employer] procedure are in the results section. IONIZED CALCIUM STAT 04/17/2018 7:00 Results for this [facility] [employer] procedure are in the results section. HC COMPLETE BLD COUNT STAT 04/17/2018 7:00 Results for this W/AUTO DIFF [facility] [employer] procedure are in the results section. ECG 12-LEAD STAT 04/17/2018 6:58 Results for this [facility] [employer] procedure are in the results section. POC GLUCOSE Routine 04/17/2018 6:50 Results for this [employer] procedure are in the results section. after 09/04/2017 Results XR Chest 1 Vw Portable (05/21/2018 8:54 AM [employer])Only the most recent of10 resultswithin the time period is included. 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 There is cardiomegaly, mediastinal widening and bilateral pulmonary vascular congestion with minimal edema. [facility]-[id number] Performing Organization Address City/[facility]/Zipcode Phone Number [facility] [address] [place] [address] POC glucose (05/21/2018 7:17 AM [employer])Only the most recent of112 resultswithin the time period is included. POC glucose 281 (H) 65 - 99 mg/dL [facility] Comment: HOSPITAL RN Notified Meter ID: [id number] Cloud Infrastructure Architect: Mart Partida Performing Organization Address [facility] Facility[facility] Phone Number [facility] DEPARTMENT OF PATHOLOGY [address] [place] [address] Estimated GFR (05/21/2018 3:40 AM [employer])Only the most recent of15 resultswithin the time period is included. Estimated GFR 8 (A) mL/min/1.73 m2 [facility] Comment: [facility] CatergoryUnitsInterpretation G1 >=90 Normal or high G2 60-89Mildly decreased [id number] to moderately decreased [id number] to severely decreased G4 15-29Severely decreased G5 <15Kidney failure The eGFR was calculated using the Chronic Kidney Disease Epidemiology Collaboration (CKD-EPI) equation. Interpretation is based on recommendations of the National Kidney Foundation-Kidney Disease Outcomes Quality Initiative (NKF-KDOQI) published in 2014. Specimen Plasma specimen Performing Organization Address [facility] Facility[facility] Phone Number [facility] DEPARTMENT OF PATHOLOGY [address] [place] [address] AND GENOMIC MEDIC[facility] [address] Partial thromboplastin time, activated (05/21/2018 3:40 AM [employer])Only the most recent of7 resultswithin the time period is included. PTT 33.3 23.0 - 36.0 sec [facility] Comment: [facility] PTT therapeutic range for unfractionated heparin is 61.0-112.0 seconds which corresponds to Anti-Xa 0.3-0.7 U/ml. Specimen Blood Performing Organization Address City/[facility]/Zipcode Phone Number [facility] DEPARTMENT OF PATHOLOGY [address] [place] [address] Prothrombin time with INR (05/21/2018 3:40 AM [facility])Only the most recent of8 resultswithin the time period is included. Prothrombin time 14.1 11.5 - 14.[address] [facility] INR 1.1 [facility] Comment: [facility] The International Normalized Ratio (INR) is a therapeutic monitoring tool for patients who are stable on oral anticoagulant therapy. An INR of 2.0-3.0 is suggested for deep vein thrombosis/pulmonary embolism. Specimen Blood Performing Organization Address City/[facility] Facility[facility] Phone Number [facility] DEPARTMENT OF PATHOLOGY [address] [place] [address] CBC with platelet and differential (05/21/2018 3:40 AM [employer])Only the most recent of13 resultswithin the time period is included. WBC 8.1 4.5 - 11.0 k/uL [facility] RBC 3.29 (L) 4.20 - 5.50 m/uL [facility] HGB 10.0 (L) 12.0 - 16.0 g/dL [facility] HCT 29.5 (L) 37.0 - 47.0 % [facility] MCV 89.7 82.0 - 100.[address] [facility] MCH 30.4 27.0 - 34.[address] [facility] MCHC 33.9 31.0 - 37.0 g/dL [facility] RDW - SD 41.4 37.0 - 55.[address] [facility] MPV 10.7 6.9 - 11.[address] [facility] Platelet count 268 150 - 400 K/uL [facility] Nucleated RBC 0.00 /[address] [facility] Neutrophils 67.1 39.0 - 69.0 % [facility] Lymphocytes 19.7 (L) 25.0 - 45.0 % [facility] Monocytes 10.2 (H) 0.0 - 10.0 % [facility] Eosinophils 2.0 0.0 - 5.0 % [facility] Basophils 0.5 0.0 - 1.0 % [facility] Immature granulocytes 0.5 0.0 - 1.0 % [facility] Specimen Blood Performing Organization Address City/[facility] Facility[facility] Phone Number [facility] DEPARTMENT OF PATHOLOGY [address] [place] [address] [place] [address] HOSPITAL Phosphorus level (05/21/2018 3:40 AM [facility])Only the most recent of8 resultswithin the time period is included. Phosphorus 5.8 (H) 2.4 - 4.5 mg/dL [facility] Specimen Plasma specimen Performing Organization Address [facility] Facilitycowi Phone Number [facility] DEPARTMENT OF PATHOLOGY [address] [place] [address] Magnesium level (05/21/2018 3:40 AM [facility])Only the most recent of13 resultswithin the time period is included. Magnesium 2.1 1.6 - 2.4 mg/dL [facility] Specimen Plasma specimen Performing Organization Address City/[facility] Facility[facility] Phone Number [facility] DEPARTMENT OF PATHOLOGY [address] [place] [address] Ionized calcium (05/21/2018 3:40 AM [employer])Only the most recent of12 resultswithin the time period is included. pH 7.[address] [facility] Ionized calcium 1.02 (L) 1.11 - 1.32 mmol/L [facility] Specimen Plasma specimen Performing Organization Address City/[facility] Facilitycode Phone Number [facility] DEPARTMENT OF PATHOLOGY [id number] [place] [address] Basic metabolic panel (05/21/2018 3:40 AM [facility])Only the most recent of7 resultswithin the time period is included. Sodium 134 (L) 135 - 148 mEq/L [facility] Potassium 3.9 3.5 - 5.0 mEq/L [facility] Chloride 97 (L) 98 - 112 mEq/L [facility] CO2 21 (L) 24 - 31 mEq/L [facility] Anion gap 16@ANIO (H) 7 - 15 mEq/L [facility] BUN 59 (H) 8 - 23 mg/dL [facility] Creatinine 5.31 (H) 0.50 - 0.90 mg/dL [facility] Glucose 286 (H) 65 - 99 mg/dL [facility] Calcium 8.5 (L) 8.8 - 10.2 mg/dL [facility] Specimen Plasma specimen Performing Organization Address [facility] Phone Number [facility] DEPARTMENT OF PATHOLOGY [address] [place] [address] ECG 12 lead (05/20/2018 3:40 PM [employer])Only the most recent of10 resultswithin the time period is included. Ventricular rate 61 [facility] Atrial rate 61 [facility] KS interval 240 [facility] QRSD interval 110 [facility] QT interval 460 [facility] QTC interval 463 [facility] P axis 1 62 [facility] QRS axis 1 -12 [facility] T wave axis 158 [facility] EKG impression Sinus rhythm with 1st degree AV block-Incomplete left bundle branch block-Marked ST abnormality, possible lateral subendocardial injury- Abnormal ECG-In automated comparison with ECG of 18-DEC-2018 08:59,-Incomplete left bundle branch block is now [facility] MUSE present-Minimal criteria for Anterior infarct are no longer present- Narrative Performed At Performing Organization Address City/State/Zipcode Phone Number [facility] [address] [place] [address] Activated clotting time, low response (05/19/2018 8:01 PM ASSOCIATE MERCHANT)Only the most recent of6 resultswithin the time period is included. Activated clotting time, 137 89 - 169 sec [facility] low response Comment: [facility] Meter ID: [id number] Cloud Infrastructure Architect: Dario Partida Performing Organization Address City/State/Zipcode Phone Number [facility] DEPARTMENT OF PATHOLOGY [address] [place] [address] AND GENOMIC MEDICINE [facility] [id number] [place] [address] HOSPITAL Cv laboratory inspector procedure (05/19/2018 3:52 PM ASSOCIATE MERCHANT) Narrative Performed At PROCEDURE: PCI of RCA CUPID A4 [place] micro-puncture set was used to gain access to the right femoral artery using ultrasound guidance. Itwas exchanged for a 6 [place] short sheath. I used a 6 [place] 3DRC guide with sideholes to cannulate the RCA. I advanced a rota floppy wire into the distal RCA. I attempted to perform rotational atherectomy with a 1.5 mm colby at 185,000 RPM. However, the colby would not advance. I exchanged my rota floppy wire for a rota-wire extra support.( I had to advance a Luge wire wire into the distal RCA. I advanced a 1.2 mm x 8 mm Mini-Trek balloon into the distal RCA and exchanged the Luge were for the Rota wire extra support.) I then introduced a 1.25 mm burrr and performed rotational atherectomy of the ostial RCA at 185,000 RPM. I made 2 passes. I then introduced the 1.5 mm colby and performed rotational atherectomy of the RCA At 185,000 RPM with 2 passes. I then advanced a 2.5 mm x 12 mm Emerge balloon and exchanged the rota floppy wire for a High Torque floppy extra support wire. I performed PTCA of the ostium of the RCA at 10 TAWNY. I then advanced a 3.0 mm x 16 mm Synergy stent in the ostium of the RCA at 20 TAWNY. I post-dilated the stent using a 3.5 mm x 15 mm NC Emerge balloon inflated to 17 TAWNY. The procedure was a success with 0% residual stenosis and JASPREET-3 flow upon completion. Performing Organization Address City/[facility]/Zipcode Phone Number [facility] [address] [place] [address] Lidocaine level (05/19/2018 9:27 AM ASSOCIATE MERCHANT)Only the most recent of6 resultswithin the time period is included. Lidocaine 2.83 1.50 - 5.00 ug/mL [facility] Specimen Blood Performing Organization Address City/[facility]/Zipcode Phone Number [facility] DEPARTMENT OF PATHOLOGY AND [address] [place] [address] [address] Hepatitis B surface antigen (05/19/2018 4:30 AM ASSOCIATE MERCHANT)Only the most recent of2 resultswithin the time period is included. Hepatitis B surface Ag Non-reactive Non-reactive [facility] Specimen Blood Performing Organization Address [facility]/Zipcode Phone Number [facility] DEPARTMENT OF PATHOLOGY [address] [place] [address] AND [facility] [address] [place] [address] HOSPITAL Urinalysis screen and microscopy, with reflex to culture (05/18/2018 5:40 PM ASSOCIATE MERCHANT)Only the most recent of2 resultswithin the time period is included. Specimen site [facility] Color, UA Yellow [facility] Appearance, UA Cloudy [facility] Specific gravity, UA 1.025 1.001 - 1.[address] [facility] pH, UA 5.0 5.0 - 9.[address] [facility] Protein, UA Negative Negative [facility] Glucose, UA Negative Negative [facility] Ketones, UA Negative Negative [facility] Bilirubin, UA Negative Negative [facility] Blood, UA Large (A) Negative [facility] Nitrite, UA Negative Negative [facility] Urobilinogen, UA <2.0 <2.0 E.U./dL [facility] Leukocyte esterase, UA Large (A) Negative [facility] Epithelial cells, UA 3 /HPF [facility] WBC, UA 72 (H) 0 - 4 /HPF [facility] RBC, UA >200 (H) 0 - 5 /HPF [facility] Bacteria, UA Few None seen [facility] WBC clumps, UA Few (A) [facility] Yeast, UA Few (A) [facility] Yeast with pseudohyphae, UA None seen [facility] Hyaline casts, UA 2-5 /LPF [facility] Specimen Urine Performing Organization Address [facility] Phone Number [facility] DEPARTMENT OF PATHOLOGY [address] [place] [address] AND [facility] [id number] [place] [address] HOSPITAL Gram stain (05/18/2018 5:21 PM ASSOCIATE MERCHANT) Gram stain result Few WBC's [facility] Few Gram positive rods Moderate Yeast Comment: Specimen Information Specimen Source: Urine Specimen Site: Reyes Specimen Urine - Reyes Performing Organization Address [facility] Phone Number [facility] DEPARTMENT OF PATHOLOGY AND [address] [place] [address] Urine culture (05/18/2018 5:21 PM ASSOCIATE MERCHANT)Only the most recent of2 resultswithin the time period is included. Urine culture isolate Mixed jose <=10-3 col/cc [facility] Comment: Specimen Information Specimen Source: Urine Specimen Site: Reyes Specimen Urine - Reyes Performing Organization Address [facility]/Zipcode Phone Number [facility] DEPARTMENT OF PATHOLOGY AND [address] [place] [address] Cv laboratory inspector procedure (05/18/2018 1:16 PM ASSOCIATE MERCHANT) Narrative Performed At PCI of three affiliated LAD through the JONES: CUPID A 4 [place] micro-puncture set was used to gain access to the left radial artery. I introduced a 6 [place] JONES catheter and canulated the JONES to LAD. I advanced a Luge wire into the three affiliated LAD which turnout to be a CAGE OPERATOR. This was in a small portion of the vessel.The calcific nature of the vessel Would require rotational atherectomy. I decided against proceeding further. Will treat medically for now. Performing Organization Address [facility] Phone Number [facility] [address] [place] [address] XR Abdomen 1 Vw (05/18/2018 10:57 AM ASSOCIATE MERCHANT) Narrative Performed At EXAMINATION: XR ABDOMEN 1 VW RADIANT INDICATION: constipation COMPARISON: 07/01/2008 IMPRESSION: A catheter overlies the pelvis and left lower abdomen. Nonobstructive bowel gas pattern. Stool burden is within normal limits. Spondylosis. [facility]-[id number] Procedure Note Interface, Radiology Results Incoming - 05/18/2018 11:22 AM ASSOCIATE MERCHANT EXAMINATION: XR ABDOMEN 1 VW INDICATION: constipation COMPARISON: 07/01/2008 IMPRESSION: A catheter overlies the pelvis and left lower abdomen. Nonobstructive bowel gas pattern. Stool burden is within normal limits. Spondylosis. [facility]-[id number] Performing Organization Address [facility] Phone Number [facility] [address] [place] [address] Cv laboratory inspector procedure (05/17/2018 5:16 PM ASSOCIATE MERCHANT) Impressions Performed At 1. Three-vessel coronary artery disease CUPID 2. Patent JONES to LAD 3. Occluded SVG 4. Known Severe LV systolic dysfunction. PLAN: 1. PCI of the three affiliated LAD through the JONES 2. PCI of the RCA. PROCEDURE: I was unable to cannulate the RCA with an AL 0.75 guide. I was able to cannulate the RCA with a 3DRC guide. I advanced a Luge wire into the distal RCA. I introduced a 2.0 mm x 15 mm Emerge balloon and performed angioplasty of the proximal RCA at 10 TAWNY. I introduced a 2.75 mm x 15 mm NC Emerge balloon and performed angioplasty of the proximal RCA at 10 TAWNY. Due to the calcific nature the lesion remained unchanged. I was also unable to advance a cutting balloon. I plan to bring her back and consider rotational atherectomy. Narrative Performed At This is Dr. Mayco Urrutia dictating a cardiac catheterization. CUPID PROCEDURE: The right groin was prepared and draped in the usual sterile fashion and local anesthesia given. A 4 [place] micro-puncture set was used to gain access to the right femoral artery using ultrasound guidance.A 6 [place] short sheath was placed in the right femoral artery using the seldinger technique.Selective cine coronary arteriography was performed in the various left and right anterior oblique projections using manual injections of Visipaque contrast on the JL4 and JR4 diagnostic catheter. An AL 0.75 catheter was used to visualized the RCA. Subsequently using a JR4 catheter to selectively engage and visualize an occluded saphenous vein graft. I then advanced the JR4 catheter into the left subclavian artery. I exchanged it for a JONES catheter for visualization of the JONES to LAD. Subsequently a 6 [place] pigtail catheter was advanced into the left ventricle and a left ventriculogram was performed in the right anterior oblique projection. Pressures were recorded during pullback of the catheter from the left ventricle into ascending aorta. Following this an aortogram was then performed in the left anterior oblique projection. All this the catheters were removed and hemostasis was obtained via manual pressure. FINDINGS: 1. Left main trunk: Left main trunk is a large-caliber vessel which contains a distal 20% stenosis 2. Left anterior descending artery:The left anterior descending artery is occluded proximally. 3. Left circumflex:Left circumflex is occluded in its proximal portion. 4. Right coronary artery: The right coronary artery is a large caliber dominant vessel which provides a small atrial branch. There is a moderate right ventricular branch in its mid portion and bifurcates distally into a moderate posterior descending artery branch And a moderate posterior ventricular branch. The RCA contains an ostial 95% stenosis. 5. JONES to LAD: Widely Patent. [place] LAD contains severe diffuse disease. 6. SVG: Occluded SVG. 7. Left ventriculogram:Not performed. Known ejection fraction of 20% to 25%. Performing Organization Address City/State/Zipcode Phone Number [facility] [address] [place] [address] Comprehensive metabolic panel (05/17/2018 3:00 AM ASSOCIATE MERCHANT)Only the most recent of8 resultswithin the time period is included. Sodium 137 135 - 148 mEq/L [facility] Potassium 3.8 3.5 - 5.0 mEq/L [facility] Chloride 102 98 - 112 mEq/L [facility] CO2 20 (L) 24 - 31 mEq/L [facility] Anion gap 15@ANIO 7 - 15 mEq/L [facility] BUN 57 (H) 8 - 23 mg/dL [facility] Creatinine 2.65 (H) 0.50 - 0.90 mg/dL [facility] Glucose 193 (H) 65 - 99 mg/dL [facility] Calcium 8.7 (L) 8.8 - 10.2 mg/dL [facility] Protein 5.9 (L) 6.3 - 8.3 g/dL [facility] Albumin 3.2 (L) 3.5 - 5.0 g/dL [facility] A/G ratio 1.2 0.7 - 3.[address] [facility] Alkaline phosphatase 91 35 - 104 U/L [facility] AST 24 10 - 35 U/L [facility] ALT 42 5 - 50 U/L [facility] Total bilirubin 0.4 0.2 - 1.2 mg/dL [facility] Specimen Plasma specimen Performing Organization Address City/[facility]/Zipcode Phone Number [facility] DEPARTMENT OF PATHOLOGY [address] [place] [address] [place] [address] HOSPITAL Troponin (05/15/2018 3:30 AM ASSOCIATE MERCHANT)Only the most recent of10 resultswithin the time period is included. Troponin <0.30 0.00 - 0.30 ng/mL [facility] Comment: HOSPITAL 0.11 - 1.49 ng/mlMay indicate increased risk of acute coronary syndrome. >=1.5 ng/mlConsistent with acute myocardial infarction. The diagnostic value of a single normal or non-diagnostic result is questionable.Serial samples at 2-6 hour intervals are required to rule out acute myocardial injury. Specimen Plasma specimen Performing Organization Address City/[facility]/Zipcode Phone Number [facility] DEPARTMENT OF PATHOLOGY [address] [place] [address] [id number] [place] [address] CT Head Wo Contrast (05/14/2018 8:24 PM ASSOCIATE MERCHANT)Only the most recent of2 resultswithin the time period is included. Narrative Performed At EXAMINATION:CT HEAD WO CONTRAST RADIANT CLINICAL HISTORY:dizziness COMPARISON:CT head 04/17/2018. TECHNIQUE: Noncontrast head CT performed using radiation dose reduction techniques.Technical factors are evaluated and adjusted to ensure appropriate moderation of exposure.Automated dose management technology is applied to adjust radiation exposure while achieving a diagnostic quality image. FINDINGS: No significant interval change appearing since the prior CT from 04/17/2018. No acute intra or extra-axial hemorrhage identified. The florez-white matter differentiation is preserved. Similar appearing hypoattenuating probable prominent perivascular spaces are noted within the basal ganglia bilaterally, right greater than left. The thalami, midbrain, matthias and cervicomedullary junction are unremarkable. No mass, mass effect, or midline shift is seen. Ventricles and sulci are normal in appearance for patient's age.Basal cisterns are patent. Scattered vascular calcifications are noted throughout the V4 segments and cavernous internal carotid arteries bilaterally. Calvarium is intact. Prior cataract lens extractions are noted bilaterally. The visualized paranasal sinuses are unremarkable. The mastoid air cells and middle ear cavities are clear. Scalp soft tissues are unremarkable. IMPRESSION: No acute intracranial abnormality identified, unchanged when compared with prior CT from 04/17/2018.. [facility]-[id number] Procedure Note Hm Interface, Radiology Results Incoming - 05/14/2018 8:36 PM ASSOCIATE MERCHANT EXAMINATION: CT HEAD WO CONTRAST CLINICAL HISTORY: dizziness COMPARISON: CT head 04/17/2018. TECHNIQUE: Noncontrast head CT performed using radiation dose reduction techniques. Technical factors are evaluated and adjusted to ensure appropriate moderation of exposure. Automated dose management technology is applied to adjust radiation exposure while achieving a diagnostic quality image. FINDINGS: No significant interval change appearing since the prior CT from 04/17/2018. No acute intra or extra-axial hemorrhage identified. The florez-white matter differentiation is preserved. Similar appearing hypoattenuating probable prominent perivascular spaces are noted within the basal ganglia bilaterally, right greater than left. The thalami, midbrain, matthias and cervicomedullary junction are unremarkable. No mass, mass effect, or midline shift is seen. Ventricles and sulci are normal in appearance for patient's age. Basal cisterns are patent. Scattered vascular calcifications are noted throughout the V4 segments and cavernous internal carotid arteries bilaterally. Calvarium is intact. Prior cataract lens extractions are noted bilaterally. The visualized paranasal sinuses are unremarkable. The mastoid air cells and middle ear cavities are clear. Scalp soft tissues are unremarkable. IMPRESSION: No acute intracranial abnormality identified, unchanged when compared with prior CT from 04/17/2018.. [facility]-[id number] Performing Organization Address City/[facility]/Zipcode Phone Number [facility] [address] [place] [address] B natriuretic peptide (05/14/2018 7:40 PM ASSOCIATE MERCHANT)Only the most recent of2 resultswithin the time period is included. BNP 877 (H) 0 - 100 pg/mL [facility] Specimen Blood Performing Organization Address [facility] Phone Number [facility] DEPARTMENT OF PATHOLOGY [address] [place] [address] Lipase level (05/14/2018 7:40 PM ASSOCIATE MERCHANT)Only the most recent of2 resultswithin the time period is included. Lipase 37 13 - 60 U/L [facility] Specimen Plasma specimen Performing Organization Address [facility] Phone Number [facility] DEPARTMENT OF PATHOLOGY [address] [place] [address] Creatine kinase, total (CPK) (05/14/2018 7:40 PM ASSOCIATE MERCHANT) Creatine kinase 95 26 - 192 U/L [facility] Specimen Plasma specimen Performing Organization Address [facility] Phone Number [facility] DEPARTMENT OF PATHOLOGY [address] [place] [address] ECG ED Preliminary Interpretation - Not an Order (05/14/2018 7:37 PM ASSOCIATE MERCHANT)Only the most recent of3 resultswithin the time period is included. Narrative Performed At Curt Chaves MD 05/15/20182:41 AM ECG ED Preliminary Interpretation - Not an Order Performed by: Curt Chaves MD Authorized by: Curt Chaves MD ECG reviewed by ED Physician in the absence of a cook chief: yes Interpretation: Interpretation: abnormal Rate: ECG rate:90 ECG rate assessment: normal Rhythm: Rhythm: sinus rhythm Ectopy: Ectopy: PVCs QRS: QRS axis:Normal QRS intervals:Normal ST segments: ST segments:Normal T waves: T waves: normal CRITICAL CARE (05/14/2018 7:37 PM ASSOCIATE MERCHANT) Narrative Performed At Curt Chaves MD 05/15/20182:41 AM Critical Care Performed by: Curt Chaves MD Authorized by: Curt Chaves MD Critical care provider statement: Critical care time (minutes):50 Critical care time was exclusive of:Separately billable procedures and treating other patients Critical care was necessary to treat or prevent imminent or life-threatening deterioration of the following conditions:Cardiac failure and circulatory failure (Ventricular tachycardia/ventricular fibrillation, AICD defibrillation, amiodarone with drip, cardiology consultation, network support consultation) Critical care was time spent personally by me on the following activities:Development of treatment plan with patient or surrogate, evaluation of patient's response to treatment, examination of patient, obtaining history from patient or surrogate, ordering and performing treatments and interventions, ordering and review of laboratory studies, pulse oximetry, re-evaluation of patient's condition, discussions with consultants, ordering and review of radiographic studies and review of old charts Hepatitis B surface Ab, quantitative (04/20/2018 5:30 AM ASSOCIATE MERCHANT)Only the most recent of2 resultswithin the time period is included. Hepatitis B surface Ab >1000.00 IU/L [facility] Comment: The anti-HBs is greater than or equal to 10 IU/L. This patient has either had an antibody response to HBV vaccination, received a transfusion, or has recovered from HBV infection. This patient should be considered immune to hepatitis B. An anti-HBs result greater than or equal to 10 IU/L implies immunity. For post-vaccination antibody testing guidelines for the general public refer to MMWR May 22, 2005/Vol. 54(No. 16);1-23, and for healthcare workers refer to MMWR May 19, 2013/Vol. 62(No. 10);1-19. Reference Interval: anti-HBs 9.99 IU/L or less ....... Negative 10.00 IU/L or greater .... Positive Results greater than 1,000.00 IU/L are reported as greater than 1,000.00 IU/L. This assay should not be used for blood donor screening, associated re-entry protocols, or for screening Human Cell, Tissues and Cellular and Tissue-Based Products (HCT/P). Performed by [employer], [address] [place] [id number] [email or web address], Thomas Grover MD - Lab. Director Specimen Serum Performing Organization Address [facility] Phone Number [facility] [address] [place] [address] [facility] [address] [place] [phone] Hepatitis B surface antibody (04/20/2018 5:30 AM ASSOCIATE MERCHANT) Hepatitis B surface Ab Reactive (A) Non-reactive [facility] Specimen Blood Performing Organization Address City/[facility]/Zipcode Phone Number [facility] DEPARTMENT OF PATHOLOGY AND [address] [place] [address] GENOMIC MED[address] [address] [place] Abdomen Complete (04/19/2018 12:54 AM ASSOCIATE MERCHANT) Narrative Performed At EXAM: US ABDOMEN COMPLETE RADIANT CLINICAL DATA:Nauseavomiting COMPARISON: NONE. FINDINGS: LIVER:No focal hepatic lesion or intrahepatic biliary ductal dilation is identified. MPV:Doppler evaluation of the portal vein demonstrates normal hepatopedal flow. GALLBLADDER:There is cholelithiasis. The gallbladder wall is not thickened and there is no pericholecystic fluid. CBD: 0.5 cm, within normal limits. PANCREAS:No focal pancreatic lesion is identified. SPLEEN:The spleen measures 13.7 x 6.3 x 5.0 cm and is without a focal lesion. RIGHT KIDNEY:There is no evidence of mass, calculi, or hydronephrosis. The right kidney measures 11.8 x 5.6 x 5.1 cm. LEFT KIDNEY:There is no evidence of mass, calculi, or hydronephrosis. The left kidney measures 12.8 x 5.3 x 7.0 cm. AORTA:The visualized upper abdominal aorta demonstrates no evidence of ectasia or aneurysm. IVC:The visualized portions of the inferior vena cava are unremarkable. ASCITES: No abnormal abdominal fluid collections are visualized. There is no evidence of ascites. PLEURAL EFFUSION:There are no pleural effusions. IMPRESSION: 1. Cholelithiasis without evidence of acute cholecystitis. 2. No other abnormality is identified. [facility]-[id number] Procedure Note Hm Interface, Radiology Results Incoming - 04/19/2018 1:16 AM ASSOCIATE MERCHANT EXAM: US ABDOMEN COMPLETE CLINICAL DATA: Nausea vomiting COMPARISON: NONE. FINDINGS: LIVER: No focal hepatic lesion or intrahepatic biliary ductal dilation is identified. MPV: Doppler evaluation of the portal vein demonstrates normal hepatopedal flow. GALLBLADDER: There is cholelithiasis. The gallbladder wall is not thickened and there is no pericholecystic fluid. CBD: 0.5 cm, within normal limits. PANCREAS: No focal pancreatic lesion is identified. SPLEEN: The spleen measures 13.7 x 6.3 x 5.0 cm and is without a focal lesion. RIGHT KIDNEY: There is no evidence of mass, calculi, or hydronephrosis. The right kidney measures 11.8 x 5.6 x 5.1 cm. LEFT KIDNEY: There is no evidence of mass, calculi, or hydronephrosis. The left kidney measures 12.8 x 5.3 x 7.0 cm. AORTA: The visualized upper abdominal aorta demonstrates no evidence of ectasia or aneurysm. IVC: The visualized portions of the inferior vena cava are unremarkable. ASCITES: No abnormal abdominal fluid collections are visualized. There is no evidence of ascites. PLEURAL EFFUSION: There are no pleural effusions. IMPRESSION: 1. Cholelithiasis without evidence of acute cholecystitis. 2. No other abnormality is identified. [facility]-[id number] Performing Organization Address City/State/Zipcode Phone Number [facility] [address] [place] [address] Beta hydroxybutyrate (04/18/2018 6:30 PM ASSOCIATE MERCHANT)Only the most recent of2 resultswithin the time period is included. Beta hydroxybutyrate 0.25 0.02 - 0.27 mmol/L [facility] Specimen Blood Performing Organization Address City/State/Zipcode Phone Number [facility] DEPARTMENT OF PATHOLOGY [id number] [place] [address] AND GENOMIC MEDICINE [facility] [id number] [place] [address] HOSPITAL Amylase level (04/18/2018 6:30 PM ASSOCIATE MERCHANT) Amylase 9 13 - 73 U/L [facility] Specimen Plasma specimen Performing Organization Address City/State/Zipcode Phone Number [facility] [address] [place] [address] AND [facility] [id number] [place] [address] Echocardiogram complete w contrast and 3D if needed (04/18/2018 5:18 PM ASSOCIATE MERCHANT) AoV Area, Vmax 1.40 cm2 [facility] AoV Area, VTI 1.39 cm2 [facility] AoV Mean PG 4.57 mmHg [facility] AoV Peak PG 9.15 mmHg [facility] AoV Vmax 1.51 m/s [facility] AoV VTI 0.25 m [facility] BSA Marquis 0.00 m2 [facility] BSA 0.00 m2 [facility] IVS,d 0.87 cm [facility] IVS/LVPW,2D 0.72 [facility] LA Area d A4C 19.35 cm2 [facility] LV,d 5.85 cm [facility] LV EF,2D 35.01 % [facility] LV,s 5.06 cm [facility] LVOT area 3.23 cm2 [facility] LVOT Diam,S 2.03 cm [facility] LVOT Vmax 0.66 m/s [facility] LVOT VTI 0.11 m [facility] LVPWD,d 1.21 cm [facility] TR Vpeak 2.26 mm/s [facility] MV E A ratio 1.83 [facility] MR Vmax 2.17 m/s [facility] MR peak grad 16.32 mmHg [facility] E wave decelartion time 184.23 msec [facility] MV Peak A Gideon 0.68 m/s [facility] MV valve area p 1/2 method 4.12 cm2 [facility] MV Peak E Gideon 1.25 m/s [facility] MV stenosis pressure 1/2 time 53.43 ms [facility] AV LVOT peak gradient 1.72 mmHg [facility] LV SYS VOL 121.82 ml [facility] LV DILL VOL 169.66 ml [facility] LV SV Teich 2D 47.84 ml [facility] LV Vol s Teich PSAX 121.82 ml [facility] BSA Haycock 0.00 m2 [facility] AoV Vmn 1.01 [facility] LV FS Teich 2D 13.38 [facility] MV AE ratio 0.55 [facility] LA Ao Ratio Mmode 1.58 [facility] LV FS Cube 2D 13.38 [facility] LVOT Vmn 0.39 [facility] Pt Size 0.00 [facility] Pt Wt 0.00 [facility] Ao root annulus 3.01 cm [facility] Aov area Vmn 1.24 cm2 [facility] LA Vol d MOD A4C 53.86 ml [facility] LVOT mean grad 0.75 mmHg [facility] MAX Pred HR 155.02 [facility] 85 of MPHR 131.77 [facility] Calc MPHR 155.02 bpm [facility] LV SV Cube 2D 69.98 ml [facility] LV vol d cube 2D 199.89 ml [facility] LV vol s cube 2D 129.91 ml [facility] MV Decel slope 6.77 m/s2 [facility] Pred Exer Dur R1 7.37 [facility] Pred METS R1 6.25 [facility] Velocity Ratio (V1/V2) 0.44 m/s [facility] EF 28.20 % [facility] E/A ratio 1.84 [facility] RVSP 30.40 mmHg [facility] Narrative Performed At This is a technically difficult study with limited views. [facility] Left ventricle is mildly dilated in size with severe impairment of systolic function. Left ventricular ejection fraction is 20-25%. Pseudonormalised pattern of left ventricular filling, consistent with stage 2 diastolic dysfunction. Both atria are normal in size. Right ventricle appears normal in size with at least moderate impairment of systolic function. Mitral valve : mildly calcified leaflets; tricuspid and aortic valves appear normal in structure; pulmonic valve is not well visualized. Mild mitral and pulmonic regurgitation, mild to moderate tricuspid regurgitation. Estimated right ventricular systolic pressure is normal at 30 mm Hg., assuming right atrial pressure of 10 mm Hg. No mass or thrombus identified in the cardiac chambers. No pericardial effusion. Interatrial septum not well visualised. Performing Organization Address City/State/Zipcode Phone Number [facility] [address] [place] [address] Arterial blood gas (04/18/2018 4:49 PM ASSOCIATE MERCHANT)Only the most recent of2 resultswithin the time period is included. pH, arterial 7.35 7.35 - 7.[address] [facility] pCO2, arterial 41 35 - [address] [facility] pO2, arterial 119 (H) 80 - [address] [facility] Bicarbonate, arterial 22.2 21.0 - 28.0 mmol/L [facility] Base excess, arterial -3 (L) -2 - 2 mEq/L [facility] O2 saturation, arterial 98 95 - 100 % [facility] Specimen Blood Performing Organization Address [facility] Phone Number [facility] DEPARTMENT OF PATHOLOGY [phone] [place] [address] AND GENOMIC MEDICINE [address] Arterial Line Insertion (04/18/2018 4:27 PM ASSOCIATE MERCHANT) Narrative Performed At Margret Waddell NP-C 04/18/20184:28 PM Arterial Line Insertion Date/Time: 04/18/2018 4:27 PM Performed by: Margret Waddell NP-C Authorized by: Margret Waddell NP-C Consent: Consent obtained:Emergent situation Indications: Indications: hemodynamic monitoring and multiple ABGs Pre-procedure details: Skin preparation:2% Chlorhexidine Preparation: Patient was prepped and draped in sterile fashion Anesthesia (see MAR for exact dosages): Anesthesia method:Local infiltration Local anesthetic:Lidocaine 1% w/o epi Procedure details: Location:L radial Placement technique:Seldinger and ultrasound guided Number of attempts:1 Transducer: waveform confirmed Post-procedure details: Post-procedure:Sterile dressing applied and sutured CMS:Unchanged Patient tolerance of procedure:Tolerated well, no immediate complications Lactic acid level, SEPSIS - Now and repeat 2x every 3 hours (04/18/2018 2:45 AM ASSOCIATE MERCHANT)Only the most recent of2 resultswithin the time period is included. Lactic acid 1.8 0.5 - 2.2 mmol/L [facility] Specimen Plasma specimen Performing Organization Address [facility] Phone Number [facility] DEPARTMENT OF PATHOLOGY [address] [place] [address] Thyroid stimulating hormone (04/18/2018 2:45 AM ASSOCIATE MERCHANT)Only the most recent of2 resultswithin the time period is included. TSH 3.35 0.27 - 4.20 uIU/mL [facility] Specimen Plasma specimen Performing Organization Address City/[facility]/Zipcode Phone Number [facility] DEPARTMENT OF PATHOLOGY [address] [place] [address] Hemoglobin A1c (04/18/2018 2:45 AM ASSOCIATE MERCHANT) Hemoglobin A1C 7.8 (H) 4.0 - 6.0 % [facility] Comment: HOSPITAL Less than 6% - Goal of therapy for Type II Diabetes Less than 7%-Goal of therapy for Type I Diabetes Less than 8%-Acceptable control for Type I or Type II Diabetes Greater than 8%-Unacceptable control; action indicated. ([id number]) Performing Organization Address [facility] Phone Number [facility] DEPARTMENT OF PATHOLOGY [address] [place] [address] Blood culture, aerobic & anaerobic (04/17/2018 9:44 PM ASSOCIATE MERCHANT)Only the most recent of2 resultswithin the time period is included. Blood culture isolate No growth after 5 days of incubation. [facility] Comment: HOSPITAL Specimen Information Specimen Source: Blood Specimen Site: Forearm, left Specimen Blood - Forearm, left Performing Organization Address City/[facility]/Zipcode Phone Number [facility] DEPARTMENT OF PATHOLOGY AND [address] [place] [address] [address] Type and screen (04/17/2018 7:00 PM ASSOCIATE MERCHANT) ABO grouping A [facility] Rh type POS [facility] Antibody screen (gel) NEG [facility] Specimen Blood Performing Organization Address City/[facility]/Zipcode Phone Number [facility] DEPARTMENT OF PATHOLOGY [phone] [place] [address] AND GENOMIC MEDICINE [facility] [id number] [place] [address] HOSPITAL Lactic acid level (04/17/2018 7:00 PM ASSOCIATE MERCHANT) Lactic acid 3.2 (H) 0.5 - 2.2 mmol/L [facility] Specimen Plasma specimen Performing Organization Address City/[facility] Phone Number [facility] DEPARTMENT OF PATHOLOGY [phone] [place] [address] AND [facility] [place] [address] HOSPITAL after 09/04/2017 Insurance Payer Benefit Plan / Group Subscriber ID Type Phone Address MEDICARE MEDICARE PART A AND B xxxxxxxxxxx Medicare [place], [place] [employer] PPO xxxxxxxxx PPO Advance Directives Patient has advance care planning documents on file. For more information, please contact:[facility] [place] [address]
--- OUTSIDE RECORDS SUMMARY | 2018-09-05 10:46 | XMS REPORT ---
:1955 Author Organization [facility] Address [address] [place] [address] Care Team Providers Name Role Phone Unavailable Unavailable Unavailable Payers Payer Name Policy Type Policy Number Effective Date Expiration Date Problems This patient has no known problems. Allergies, Adverse Reactions, Alerts Allergy Name Allergy Status Severity Reaction(s) Onset Inactive Treating Comments Type Date Date Clinician cephalexin DA Active SC 2015-08 00:00:0 0 latex DA Active MO 2015-08 00:00:0 0 Medications This patient has no known medications. Results Test Description Test Time Test Comments Text Results Atomic Results Result Comments GLUCOSE BEDSIDE TESTING 2018-06-30 05:42:00 Test Item Value Reference Range Comments GLUCOSE BEDSIDE TESTING (test code=GLUBED) 126 MG/DL 60-99 GLUCOSE BEDSIDE [id number] 20:59:00 Test Item Value Reference Range Comments GLUCOSE BEDSIDE TESTING (test code=GLUBED) 286 MG/DL 60-99 [id number] 18:47:00 Test Item Value Reference Range Comments PHOSPHOROUS (test code=PHOS) 6.0 MG/DL 2.5-4.5 GLUCOSE BEDSIDE [id number] 16:20:00 Test Item Value Reference Range Comments GLUCOSE BEDSIDE TESTING (test code=GLUBED) 364 MG/DL 60-99 GLUCOSE BEDSIDE [id number] 16:20:00 Test Item Value Reference Range Comments GLUCOSE BEDSIDE TESTING (test code=GLUBED) 331 MG/DL 60-99 COMPREHENSIVE METABOLIC [id number] 06:55:00 Test Item Value Reference Range Comments SODIUM (test code=NA) 139 MMOL/L 137-145 POTASSIUM (test code=K) 4.9 MMOL/L 3.5-5.1 CHLORIDE (test code=CL) 103 MMOL/L 98-107 CARBON DIOXIDE (test code=CO2) 24 MMOL/L 22-30 ANION GAP (test code=GAP) 17 MMOL/L 14-24 GLUCOSE (test code=GLU) 232 MG/DL 74-106 BLOOD UREA NITROGEN (test 63 MG/DL 7-17 code=BUN) GLOMERULAR FILTRATION RATE 15 Reporting units: ml/min/1.73 (test code=GFR) m2 (Modified MDRD Formula)Reference Range: > or=60 ml/min/1.73 m2 CREATININE (test code=CREAT) 3.10 MG/DL 0.52-1.04 TOTAL PROTEIN (test code=PROT) 6.3 G/DL 6.3-8.2 ALBUMIN (test code=ALB) 3.1 G/DL 3.5-5.0 CALCIUM (test code=CA) 9.1 MG/DL 8.4-10.2 BILIRUBIN TOTAL (test 0.7 MG/DL 0.2-1.3 code=BILT) SGOT/AST (test code=AST) 95 UNITS/L 14-36 SGPT/ALT (test code=ALT) 41 UNITS/L 9-52 ALKALINE PHOSPHATASE (test 86 UNITS/L 38-126 code=ALKP) CBC W/AUTO [id number] 06:36:00 Test Item Value Reference Range Comments WHITE BLOOD CELL (test code=WBC) 13.1 K/MM3 3.8-9.8 RED BLOOD CELL (test code=RBC) 3.38 M/MM3 3.58-4.97 HEMOGLOBIN (test code=HGB) 10.0 G/DL 11.2-14.9 HEMATOCRIT (test code=HCT) 32.2 % 33.2-43.5 MEAN CELL VOLUME (test code=MCV) 95 fL 80.7-99.1 MEAN CELL HGB (test code=MCH) 29.6 pg 27.0-34.1 MEAN CELL HGB CONCETRATION (test code=MCHC) 31.1 % 32.2-35.7 RED CELL DISTRIBUTION WIDTH (test code=RDW) 13.2 % 12.1-15.2 PLATELET COUNT (test code=PLT) 251 K/MM3 129-368 MEAN PLATELET VOLUME (test code=MPV) 10.0 fl 7.4-10.4 NEUTROPHIL % (test code=NT%) 78.8 % 43-75 IMMATURE GRANULOCYTE % (test code=IG%) 0.9 % 0.0-2.0 LYMPHOCYTE % (test code=LY%) 12.8 % 14-44 MONOCYTE % (test code=MO%) 7.4 % 4-13 EOSINOPHIL % (test code=EO%) 0.0 % 0-6 BASOPHIL % (test code=BA%) 0.1 % 0-2 NUCLEATED RBC % (test code=NRBC%) 0.0 % 0-1.0 NEUTROPHIL # (test code=NT#) 10.3 K/mm3 2.0-7.6 IMMATURE GRANULOCYTE # (test code=IG#) 0.12 x10 3/uL 0-0.03 LYMPHOCYTE # (test code=LY#) 1.7 K/mm3 1.0-3.8 MONOCYTE # (test code=MO#) 0.96 K/mm3 0.1-0.8 EOSINOPHIL # (test code=EO#) 0.0 K/mm3 0.0-0.2 BASOPHIL # (test code=BA#) 0.01 K/mm3 0.0-0.2 NUCLEATED RBC # (test code=NRBC#) 0.0 K/mm3 0.0-0.1 GLUCOSE BEDSIDE [id number] 06:17:00 Test Item Value Reference Range Comments GLUCOSE BEDSIDE TESTING (test code=GLUBED) 221 MG/DL 60-99 GLUCOSE BEDSIDE [id number] 00:22:00 Test Item Value Reference Range Comments GLUCOSE BEDSIDE TESTING (test code=GLUBED) 230 MG/DL 60-99 AB HEPATITIS B [id number] 22:59:00 Test Item Value Reference Range Comments AB HEPATITIS B SURFACE (test POSITIVE code=HBSAB) CLINICAL INTERPRETATION OF IMMUNE STATUS NEGATIVE: Inconsistent with immunity to HBV infection, less than 5.0 mIU/mL POSITIVE: Consistent with immunity to HBV infection, greater than 10.0 mIU/mL * AG HEPATITIS B [id number] 22:59:00 Test Item Value Reference Range Comments AG HEPATITIS B SURFACE (test code=HBSAG) NEGATIVE NONREACTIVE AB HEPATITIS B [id number] 22:59:00 Test Item Value Reference Range Comments AB HEPATITIS B CORE (test code=HBCAB) NEGATIVE NONREACTIVE AB HEPATITIS B [id number] 22:41:00 Test Item Value Reference Range Comments AB HEPATITIS B SURFACE (test code=HBSAB) AG HEPATITIS B [id number] 22:41:00 Test Item Value Reference Range Comments AG HEPATITIS B SURFACE (test code=HBSAG) NEGATIVE NONREACTIVE AB HEPATITIS B [id number] 22:41:00 Test Item Value Reference Range Comments AB HEPATITIS B CORE (test code=HBCAB) NONREACTIVE - XR CHEST [id number] 21:05:00 Patient Name: DEAN SAUCEDO Unit No: [id number] EXAMS: CPT CODE: [id number] XR CHEST 1V 36729 C3 TIME OF STUDY: 06/28/2018 6:29 PM REASON FOR EXAM: eval for chf COMPARISON: August 30, 2015 FINDINGS: AP viewof the chest was obtained. Support devices: Stable pacemaker/ICD. Lungs: There are bilateral alveolar and interstitial opacities with central vascular congestion. Pleura: No pleural effusion or pneumothorax. Heart and Mediastinum: Mild cardiomegaly and calcific atherosclerosis. Bones : Post CABG changes are evident. The median sternotomy wires are in the expected configuration. . IMPRESSION: 1. Mild pulmonary edema. Electronically Signed by Nino Gupta MD on 2018 at 2100 Reported and signed by: Nino Gupta MD CC: Kwasi Moser M.D.; Eliel Javier Technologist: Berenice Heath (RT) (AART) Transcrpt Date/Tm/Trnsp: 06/28/2018 (2104) [email or web address] Orig Print D/T: S: 06/28/2018 (2107) [facility] NAME: DEAN SAUCEDO [id number] [place] [address] PHYS: [place] [address] : AGE: 63 SEX: F LOC: Z.364 A PHONE #: [phone] EXAM DATE: STATUS: ADM IN FAX #: [phone] RADIOLOGY NO: PAGE 1 SignedReportGLUCOSE BEDSIDE [id number] 18:09:00 Test Item Value Reference Range Comments GLUCOSE BEDSIDE TESTING (test code=GLUBED) 223 MG/DL 60-99 [id number] 13:33:00 Test Item Value Reference Range Comments ACT-ISTAT (test code=ACTI) 323 SEC 74-137 [id number] 13:33:00 Test Item Value Reference Range Comments ACT-ISTAT (test code=ACTI) 345 SEC 74-137 [id number] 13:33:00 Test Item Value Reference Range Comments ACT-ISTAT (test code=ACTI) 279 SEC 74-137 [id number] 13:33:00 Test Item Value Reference Range Comments ACT-ISTAT (test code=ACTI) 252 SEC 74-137 [id number] 13:33:00 Test Item Value Reference Range Comments ACT-ISTAT (test code=ACTI) 191 SEC 74-137 PROTHROMBIN [id number] 07:57:00 Test Item Value Reference Range Comments PROTHROMBIN TIME PATIENT (test 10.6 SECONDS 9.6-11.6 code=PTP) INTERNATIONAL NORMAL RATIO 1.0 0.8-1.1 The INR is to be used only (test code=INR) for monitoring oral anticoagulanttherapy. INDICATION INR VALUE 1. Prophylaxis, deep venous thrombosis, including high risk surgery. 2.0 - 3.0 2. Prophylaxis, deep venous thrombosis, hip surgery, treatment for deep venous thrombosis or pulmonary prevention of systemic embolism in patients with valvular heart disease, atrial fibrillation, tissue heart valve, or acute myocardial infarction. 2.0 - 3.0 3. Mechanical prosthesis heart valves, recurrent systemic embolism. 3.0 - 4.5 Comments to Hydrodynamics Teacher: WILL BRING TO THE LABPTT [id number] 07:57:00 Test Item Value Reference Range Comments PTT ACTIVATED (test code=APTT) 25.6 SECONDS 22.0-33.0 Comments to Hydrodynamics Teacher: WILL BRING TO THE LABBASIC METABOLIC [id number] 07:32:00 Test Item Value Reference Range Comments SODIUM (test code=NA) 138 MMOL/L 137-145 POTASSIUM (test code=K) 5.0 MMOL/L 3.5-5.1 CHLORIDE (test code=CL) 99 MMOL/L 98-107 CARBON DIOXIDE (test code=CO2) 26 MMOL/L 22-30 GLUCOSE (test code=GLU) 140 MG/DL 74-106 BLOOD UREA NITROGEN (test 53 MG/DL 7-17 code=BUN) GLOMERULAR FILTRATION RATE 17 Reporting units: ml/min/1.73 (test code=GFR) m2 (Modified MDRD Formula)Reference Range: > or=60 ml/min/1.73 m2 CREATININE (test code=CREAT) 2.80 MG/DL 0.52-1.04 CALCIUM (test code=CA) 9.0 MG/DL 8.4-10.2 Comments to Hydrodynamics Teacher: WILL BRING TO THE LABIs this a LINE draw? [id number] 07:32:00 Test Item Value Reference Range Comments MAGNESIUM (test code=MAG) 2.3 MG/DL 1.6-2.3 Comments to Hydrodynamics Teacher: WILL BRING TO THE LABIs this a LINE draw? NCBC W/AUTO [id number] 07:20:00 Test Item Value Reference Range Comments WHITE BLOOD CELL (test code=WBC) 8.2 K/MM3 3.8-9.8 RED BLOOD CELL (test code=RBC) 3.98 M/MM3 3.58-4.97 HEMOGLOBIN (test code=HGB) 12.0 G/DL 11.2-14.9 HEMATOCRIT (test code=HCT) 37.6 % 33.2-43.5 MEAN CELL VOLUME (test code=MCV) 95 fL 80.7-99.1 MEAN CELL HGB (test code=MCH) 30.2 pg 27.0-34.1 MEAN CELL HGB CONCETRATION (test code=MCHC) 31.9 % 32.2-35.7 RED CELL DISTRIBUTION WIDTH (test code=RDW) 12.9 % 12.1-15.2 PLATELET COUNT (test code=PLT) 265 K/MM3 129-368 MEAN PLATELET VOLUME (test code=MPV) 9.6 fl 7.4-10.4 NEUTROPHIL % (test code=NT%) 68.1 % 43-75 IMMATURE GRANULOCYTE % (test code=IG%) 0.5 % 0.0-2.0 LYMPHOCYTE % (test code=LY%) 20.6 % 14-44 MONOCYTE % (test code=MO%) 8.5 % 4-13 EOSINOPHIL % (test code=EO%) 1.6 % 0-6 BASOPHIL % (test code=BA%) 0.7 % 0-2 NUCLEATED RBC % (test code=NRBC%) 0.0 % 0-1.0 NEUTROPHIL # (test code=NT#) 5.6 K/mm3 2.0-7.6 IMMATURE GRANULOCYTE # (test code=IG#) 0.04 x10 3/uL 0-0.03 LYMPHOCYTE # (test code=LY#) 1.7 K/mm3 1.0-3.8 MONOCYTE # (test code=MO#) 0.69 K/mm3 0.1-0.8 EOSINOPHIL # (test code=EO#) 0.1 K/mm3 0.0-0.2 BASOPHIL # (test code=BA#) 0.06 K/mm3 0.0-0.2 NUCLEATED RBC # (test code=NRBC#) 0.0 K/mm3 0.0-0.1
--- NOTE | 2018-09-05 11:15 | EDPHYS ---
Physician Documentation [facility] Name: Amna Whyte Age: 63 yrs Sex: Female : 1955 Arrival Date: 09/05/2018 Time: 10:43 Bed 13 Private MD: Joe Wallis E ED Physician Jerome Giraldo HPI: 09/05 11:01 This 63 yrs old Female presents to ER via Ambulatory with complaints of Wound rn Check. 11:01 Patient presents to ED for recheck of: open wound. The affected area is on the right rn leg. The patient has not experienced similar symptoms in the past. The patient has not recently seen a physician. 11:02 Reports weeping wound to right pre-tibial region, began a few days ago, no fever, no harness cutter, reports chronic swelling of legs due to dialysis and heart problems, can't get in with her doctor so came in here. Has been using abx cream and anti-bacterial soap. . Historical: - Allergies: 10:47 Cephalexin; ss 10:47 Latex, Natural Rubber; ss - PMHx: 10:47 Anemia; Diabetes - IDDM; Dialysis; hypertension (resolved); ss 10:48 Renal Disease; ss - PSHx: 10:47 CABG; ; ss 10:47 Appendectomy; ss - Immunization history:: Adult Immunizations up to date. - Social history:: Smoking status: Patient/guardian denies using tobacco. - Ebola Screening: : Patient denies exposure to infectious person Patient denies travel to an Ebola-affected area in the 21 days before illness onset. - Family history:: not pertinent. - Hospitalizations: : No recent hospitalization is reported. ROS: 11:02 Constitutional: Negative for fever, chills, and weight loss, Cardiovascular: Negative rn for chest pain, palpitations, and edema, Respiratory: Negative for shortness of breath, cough, wheezing, and pleuritic chest pain, Abdomen/GI: Negative for abdominal pain, nausea, vomiting, diarrhea, and constipation, Back: Negative for injury and pain, MS/Extremity: Negative for injury and deformity, Skin: + right pre-tibial open wound Neuro: Negative for headache, weakness, numbness, tingling, and seizure. Exam: 11:02 Constitutional: This is a well developed, well nourished patient who is awake, alert, rn and in no acute distress. MS/ Extremity: Pulses equal, no cyanosis. Neurovascular intact. Full, normal range of motion. Equal circumference. + brawny edema bilateral lower extremities with right pre-tibial region with approx 5cm open/shallow wound with clear drainage. NO purulence, no necrosis, no fluctuance. Mild erythema surrounding wound, + healthy tissue base. Vital Signs: 10:47 Pulse 74; Resp 17; Temp 97.8(TE); Pulse Ox 99% on R/A; Weight 105.23 kg; Height 5 ft. 5 ss in. (165.10 cm); Pain 0/10; 10:49 BP 116 / 59; ss 10:47 Body Mass Index 38.61 (105.23 kg, 165.10 cm) ss MDM: 10:50 Patient medically screened. rn 11:13 Differential diagnosis: cellulitis. Differential diagnosis: PVD, weeping wound from rn edema. Data reviewed: vital signs, nurses notes. Counseling: I had a detailed discussion with the patient and/or guardian regarding: the historical points, exam findings, and any diagnostic results supporting the discharge/admit diagnosis, the need for outpatient follow up, to return to the emergency department if symptoms worsen or persist or if there are any questions or concerns that arise at home. Special discussion: I discussed with the patient/guardian in detail that at this point there is no indication for admission to the hospital. It is understood, however, that if the symptoms persist or worsen the patient needs to return immediately for re-evaluation. Based on the history and exam findings, there is no indication for further emergent testing or inpatient evaluation. I discussed with the patient/guardian the need to see the primary care provider for further evaluation of the symptoms. wound care. Administered Medications: No medications were administered Disposition: 09/05/18 11:14 Discharged to Home. Impression: Edema, unspecified, Cellulitis of right lower limb. - Condition is Stable. - Discharge Instructions: Cellulitis, Adult, Edema, Wound Care, Peripheral Edema. - Prescriptions for Clindamycin HCl 300 mg Oral Capsule - take 1 capsule by ORAL route every 6 hours for 10 days; 40 capsule. - Medication Reconciliation Form, Thank You Letter, Antibiotic Education, Prescription Opioid Use form. - Follow up: Private Physician; When: As needed; Reason: Recheck today's complaints, Re-evaluation by your physician. - Problem is new. - Symptoms are unchanged. Signatures: Jerome Giraldo MD MD rn JanesMichelle RN RN Shana Bales RN RN jl7 Corrections: (The following items were deleted from the chart) 11:24 11:14 09/05/2018 11:14 Discharged to Home. Impression: Edema, unspecified; Cellulitis jl7 of right lower limb. Condition is Stable. Forms are Medication Reconciliation Form, Thank You Letter, Antibiotic Education, Prescription Opioid Use. Follow up: Private Physician; When: As needed; Reason: Recheck today's complaints, Re-evaluation by your physician. Problem is new. Symptoms are unchanged. rn
--- NOTE | 2018-09-05 11:15 | ER ---
Nurse's Notes [facility] Name: Amna Whyte Age: 63 yrs Sex: Female : 1955 Arrival Date: 09/05/2018 Time: 10:43 Bed 13 Private MD: Joe Wallis E Diagnosis: Edema, unspecified;Cellulitis of right lower limb Presentation: 09/05 10:45 Presenting complaint: Patient states: wound to R arndt that began "a few days ago". Pt ss is concerned because she has a history of diabetes and heart disease. Transition of care: patient was not received from another setting of care. Onset of symptoms was August 31, 2018. Risk Assessment: Do you want to hurt yourself or someone else? Patient reports no desire to harm self or others. Initial Sepsis Screen: Does the patient meet any 2 criteria? No. Patient's initial sepsis screen is negative. Does the patient have a suspected source of infection? No. Patient's initial sepsis screen is negative. Care prior to arrival: None. 10:45 Method Of Arrival: Ambulatory ss 10:45 Acuity: BROOK 3 ss Historical: - Allergies: 10:47 Cephalexin; ss 10:47 Latex, Natural Rubber; ss - PMHx: 10:47 Anemia; Diabetes - IDDM; Dialysis; hypertension (resolved); ss 10:48 Renal Disease; ss - PSHx: 10:47 CABG; ; ss 10:47 Appendectomy; ss - Immunization history:: Adult Immunizations up to date. - Social history:: Smoking status: Patient/guardian denies using tobacco. - Ebola Screening: : Patient denies exposure to infectious person Patient denies travel to an Ebola-affected area in the 21 days before illness onset. - Family history:: not pertinent. - Hospitalizations: : No recent hospitalization is reported. Screenin:55 Abuse screen: Denies threats or abuse. Denies injuries from another. Nutritional jl7 screening: No deficits noted. Tuberculosis screening: No symptoms or risk factors identified. Fall Risk IV access (20 points). Total Wayne Fall Scale indicates No Risk (0-24 pts). Assessment: 10:55 General: Appears in no apparent distress. uncomfortable, Behavior is calm, cooperative, jl7 appropriate for age. Pain: Denies pain. Neuro: Level of Consciousness is awake, alert, obeys commands, Oriented to person, place, time, situation. Cardiovascular: Patient's skin is warm and dry. Respiratory: Airway is patent Respiratory effort is even, unlabored, Respiratory pattern is regular, symmetrical. Derm: Wound noted right leg. Vital Signs: 10:47 Pulse 74; Resp 17; Temp 97.8(TE); Pulse Ox 99% on R/A; Weight 105.23 kg; Height 5 ft. 5 ss in. (165.10 cm); Pain 0/10; 10:49 BP 116 / 59; ss 10:47 Body Mass Index 38.61 (105.23 kg, 165.10 cm) ss ED Course: 10:43 Patient arrived in ED. rg4 10:43 Joe Wallis MD is Private Physician. rg4 10:46 Triage completed. ss 10:47 Arm band placed on right wrist. Patient placed in an exam room, on a stretcher. ss 10:50 Jerome Giraldo MD is Attending Physician. rn 10:50 Shana Bales RN is Primary Nurse. jl7 11:06 Patient has correct armband on for positive identification. Bed in low position. Call jl7 light in reach. Side rails up X 1. Pulse ox on. NIBP on. 11:24 No provider procedures requiring assistance completed. Patient did not have IV access jl7 during this emergency room visit. Administered Medications: No medications were administered Outcome: 11:14 Discharge ordered by . rn 11:24 Discharged to home ambulatory. jl7 11:24 Condition: stable 11:24 Discharge instructions given to patient, family, Instructed on discharge instructions, follow up and referral plans. medication usage, Demonstrated understanding of instructions, follow-up care, medications, Prescriptions given X 1. 11:24 Patient left the ED. jl7 Signatures: Jerome Giraldo MD MD rn Smirch, Shelby, RN RN ss Garcia, Rubi [facility] Shana Bales RN RN jl7
[2018-09-05 11:43] VITALS: TEMP 97.8; O2SAT 99
[2018-09-05 11:44] VITALS: BP 116/59
== END 2018-09-05 11:24 | disposition home or self-care (01) ==
LOC: ER 10:40
DX: L03.115 Cellulitis of right lower limb (principal); E11.22 Type 2 diabetes mellitus with diabetic chronic kidney disease; N18.6 End stage renal disease; Z88.1 Allergy status to other antibiotic agents; Z91.040 Latex allergy status; Z91.048 Other nonmedicinal substance allergy status; Z95.1 Presence of aortocoronary bypass graft; Z99.2 Dependence on renal dialysis
CPT/HCPCS: 99283

== ENCOUNTER 2018-10-27 18:23 | Emergency (ER) | payer OTHER ==
--- OUTSIDE RECORDS SUMMARY | 2018-10-27 18:32 | XMS REPORT ---
:1955 [facility] Address [address] [place] [address] Care Team Providers Name Role Phone Unavailable Unavailable Unavailable Payers Payer Name Policy Type Policy Number Effective Date Expiration Date Problems This patient has no known problems. Allergies, Adverse Reactions, Alerts Allergy Name Allergy Status Severity Reaction(s) Onset Inactive Treating Comments Type Date Date Clinician cephalexin DA Active [place] 2015-08 00:00:0 0 latex DA Active [place] 2015-08 00:00:0 0 Medications This patient has no known medications. Results Test Description Test Time Test Comments Text Results Atomic Results Result Comments GLUCOSE BEDSIDE TESTING 2018-06-30 05:42:00 Test Item Value Reference Range Comments GLUCOSE BEDSIDE TESTING (test code=GLUBED) 126 MG/DL 60-99 GLUCOSE BEDSIDE [id number] 20:59:00 Test Item Value Reference Range Comments GLUCOSE BEDSIDE TESTING (test code=GLUBED) 286 MG/DL 60-99 [id number] 18:47:00 Test Item Value Reference Range Comments PHOSPHOROUS (test code=PHOS) 6.0 MG/DL 2.5-4.5 GLUCOSE BEDSIDE [id number] 16:20:00 Test Item Value Reference Range Comments GLUCOSE BEDSIDE TESTING (test code=GLUBED) 364 MG/DL 60-99 GLUCOSE BEDSIDE [id number] 16:20:00 Test Item Value Reference Range Comments GLUCOSE BEDSIDE TESTING (test code=GLUBED) 331 MG/DL 60-99 COMPREHENSIVE METABOLIC [id number] 06:55:00 Test Item Value Reference Range Comments [...] (test 86 UNITS/L 38-126 code=ALKP) CBC W/AUTO [id number] 06:36:00 Test Item Value Reference Range Comments [...] (test code=NRBC#) 0.0 K/mm3 0.0-0.1 GLUCOSE BEDSIDE [id number] 06:17:00 Test Item Value Reference Range Comments GLUCOSE BEDSIDE TESTING (test code=GLUBED) 221 MG/DL 60-99 GLUCOSE BEDSIDE [id number] 00:22:00 Test Item Value Reference Range Comments GLUCOSE BEDSIDE TESTING (test code=GLUBED) 230 MG/DL 60-99 AB HEPATITIS B [id number] 22:59:00 Test Item Value Reference Range Comments AB HEPATITIS B SURFACE (test POSITIVE code=HBSAB) CLINICAL INTERPRETATION OF IMMUNE STATUS NEGATIVE: Inconsistent with immunity to HBV infection, less than 5.0 mIU/mL POSITIVE: Consistent with immunity to HBV infection, greater than 10.0 mIU/mL * AG HEPATITIS B [id number] 22:59:00 Test Item Value Reference Range Comments AG HEPATITIS B SURFACE (test code=HBSAG) NEGATIVE NONREACTIVE AB HEPATITIS B [id number] 22:59:00 Test Item Value Reference Range Comments AB HEPATITIS B CORE (test code=HBCAB) NEGATIVE NONREACTIVE AB HEPATITIS B [id number] 22:41:00 Test Item Value Reference Range Comments AB HEPATITIS B SURFACE (test code=HBSAB) AG HEPATITIS B [id number] 22:41:00 Test Item Value Reference Range Comments AG HEPATITIS B SURFACE (test code=HBSAG) NEGATIVE NONREACTIVE AB HEPATITIS B [id number] 22:41:00 Test Item Value Reference Range Comments AB HEPATITIS B CORE (test code=HBCAB) NONREACTIVE - XR CHEST [id number] 21:05:00 Patient Name: DEAN SAUCEDO Unit No: [id number] EXAMS: CPT CODE: [id number] XR CHEST 1V [id number] C3 TIME OF STUDY: 06/28/2018 6:29 PM [...] by Nino Gupta MD on 2018 at 2105 Reported and signed by: Nino Gupta MD CC: Kwasi Moser M.D.; Eliel Javier Technologist: Berenice Heath (RT) (AART) Transcrpt Date/Tm/Trnsp: 06/28/2018 (2104) [id number] Orig Print D/T: S: 06/28/2018 (2107) [facility] NAME: DEAN SAUCEDO [id number] [address] PHYS: [place] [address] : AGE: 63 SEX: F LOC: Z.364 A PHONE #: [phone] EXAM DATE: STATUS: ADM IN FAX #: [phone] RADIOLOGY NO: PAGE 1 SignedReportGLUCOSE BEDSIDE [id number] 18:09:00 Test Item Value Reference Range Comments GLUCOSE BEDSIDE TESTING (test code=GLUBED) 223 MG/DL 60-99 [id number] 13:33:00 Test Item Value Reference Range Comments ACT-ISTAT (test code=ACTI) 323 SEC 74-137 [id number] 13:33:00 Test Item Value Reference Range Comments ACT-ISTAT (test code=ACTI) 345 SEC 74-137 [id number] 13:33:00 Test Item Value Reference Range Comments ACT-ISTAT (test code=ACTI) 279 SEC 74-137 [id number] 13:33:00 Test Item Value Reference Range Comments ACT-ISTAT (test code=ACTI) 252 SEC 74-137 [id number] 13:33:00 Test Item Value Reference Range Comments ACT-ISTAT (test code=ACTI) 191 SEC 74-137 PROTHROMBIN [id number] 07:57:00 Test Item Value Reference Range Comments [...] systemic embolism. 3.0 - 4.5 Comments to [employer]: WILL BRING TO THE LABPTT [id number] 07:57:00 Test Item Value Reference Range Comments PTT ACTIVATED (test code=APTT) 25.6 SECONDS 22.0-33.0 Comments to [employer]: WILL BRING TO THE LABBASIC METABOLIC [id number] 07:32:00 Test Item Value Reference Range Comments [...] (test code=CA) 9.0 MG/DL 8.4-10.2 Comments to [employer]: WILL BRING TO THE LABIs this a LINE draw? [id number] 07:32:00 Test Item Value Reference Range Comments MAGNESIUM (test code=MAG) 2.3 MG/DL 1.6-2.3 Comments to [employer] Maker: WILL BRING TO THE LABIs this a LINE draw? NCBC W/AUTO [id number] 07:20:00 Test Item Value Reference Range Comments [...]
--- OUTSIDE RECORDS SUMMARY | 2018-10-27 18:32 | XMS REPORT | Clinical Summary ---
:1955 Author Organization [place] [facility] Address [address] [place] [address] Care Team Providers Name Role Phone Joe Wallis MD Primary Care Provider Allergies Active Allergy Reactions Severity Noted Date Comments Cephalexin Itching 01/03/2015 Latex Other (See Comments) 01/03/2015 Macrolide Antibiotics 04/21/2018 Pt. Must avoid any medication that cause QT prolongation. Pt. has a defibrillator Per [facility] (Dr. Javier). Pt must not take macrolides=interaction [...] 05/19/2018 Surgery Procedural Urrutia, Hector PCI stent [[id number] Cardiology MD [facility]co (CPT)] 05/18/2018 Surgery Procedural Urrutia, Hector PCI stent [[id number] Cardiology MD [facility]co (CPT)] 05/17/2018 Surgery Procedural Urrutia, Hector Left heart cath w lv Cardiology MD [place]co gram cors [[id number] (CPT)] 05/14/2018 - Hospital Encounter Intensive Care Curt Chaves Ventricular tachyarrhythmia (HCC) (Primary Dx); 05/21/2018 Sangeeth Dizziness; MD Benny Nausea and vomiting, intractability of vomiting not specified, unspecified vomiting type Harper Fuller MD Joglekar, Samir P., MD 04/22/2018 Documentation Nephrology Garrett Black MD 04/17/2018 - Hospital Encounter General Internal ParishJose Carlos, Syncope, unspecified 04/21/2018 Medicine syncope type (Primary Sander Huang Dx) MD Jani after 10/26/2017 Social History Tobacco Use Types Packs/Day Years [...] Taken Blood Pressure 130/62 05/21/2018 11:00 AM ADOPTION MANAGER Pulse 58 05/21/2018 11:00 AM ADOPTION MANAGER Temperature 37.5 C (99.5 F) 05/21/2018 8:00 AM ADOPTION MANAGER Respiratory Rate 26 05/21/2018 11:00 AM ADOPTION MANAGER Oxygen Saturation 96% 05/21/2018 11:00 AM ADOPTION MANAGER Inhaled Oxygen Concentration - - Weight 105 kg (231 lb 7.7 oz) 05/21/2018 4:00 AM ADOPTION MANAGER Height 165.1 cm (5' 5") 05/15/2018 12:00 AM ADOPTION MANAGER Body Mass Index 38.52 05/15/2018 12:00 AM ADOPTION MANAGER Plan of Treatment Health Maintenance Due Date Last Done Comments BREAST CANCER SCREENING 2003 COLON CANCER SCREENING 2003 SHINGLES VACCINES (#1) 2003 65+ PNEUMOCOCCAL VACCINE (1 of 2 - PCV13) 2018 PNEUMOCOCCAL POLYSACCHARIDE VACCINE AGE 65 AND OVER 2018 INFLUENZA VACCINE 12/29/2018 Implants Implanted Type Area Test Center Manager Device Shelf Model / Identifier Expiration Serial / Date Lot System Athrctmy Rotn 0.58in 135cm 1.5mm Rotalink [address] - [id number] Cardiovascular N/A: BS 02/12/2020 [id number] / Implanted: Qty: 1 on 05/19/2018 by Hector Urrutia MD Implants N/A INTERVENTIONAL / CARDIOLOGY [id number] System Athrctmy Rotn 0.58in 135cm 1.25mm Rotalink Pl - [id number] Cardiovascular N/A: BS 01/22/2020 [id number] / Implanted: Qty: 1 on 05/19/2018 by Hector Urrutia MD Implants N/A INTERVENTIONAL / CARDIOLOGY [id number] Stent Coronary Syst Synergy (Mr) 3.00mm X 16mm - [id number] Coronary Stents N /A: [facility] 03/09/2020 [id number] / Implanted: Qty: 1 on 05/19/2018 by Hector Urrutia MD N/A INTERVENTIONAL / CARDIOLOGY [id number] Procedures Procedure Name Priority Date/Time Associated Comments Diagnosis XR CHEST 1 VW PORTABLE Routine 05/21/2018 8:54 Results for this AM ADOPTION MANAGER procedure are in the results section. POC GLUCOSE Routine 05/21/2018 7:17 Results for this AM ADOPTION MANAGER procedure are in the results section. ESTIMATED GFR Routine 05/21/2018 3:40 Results for this AM ADOPTION MANAGER procedure are in the results section. PARTIAL THROMBOPLASTIN Routine 05/21/2018 3:40 Results for this TIME (PTT) AM ADOPTION MANAGER procedure are in the results section. PROTHROMBIN TIME WITH Routine 05/21/2018 3:40 Results for this INR AM ADOPTION MANAGER procedure are in the results section. PHOSPHORUS LEVEL Routine 05/21/2018 3:40 Results for this AM ADOPTION MANAGER procedure are in the results section. MAGNESIUM LEVEL Routine 05/21/2018 3:40 Results for this AM ADOPTION MANAGER procedure are in the results section. IONIZED CALCIUM Routine 05/21/2018 3:40 Results for this AM ADOPTION MANAGER procedure are in the results section. HC COMPLETE BLD COUNT Routine 05/21/2018 3:40 Results for this W/AUTO DIFF AM ADOPTION MANAGER procedure are in the results section. BASIC METABOLIC PANEL Routine 05/21/2018 3:40 Results for this AM ADOPTION MANAGER procedure are in the results section. POC GLUCOSE Routine 05/20/2018 8:48 Results for this PM ADOPTION MANAGER procedure are in the results section. POC GLUCOSE Routine 05/20/2018 4:52 Results for this PM ADOPTION MANAGER procedure are in the results section. ECG 12-LEAD Routine 05/20/2018 3:40 Results for this PM ADOPTION MANAGER procedure are in the results section. POC GLUCOSE Routine 05/20/2018 12:19 Results for this PM ADOPTION MANAGER procedure are in the results section. POC GLUCOSE Routine 05/20/2018 8:04 Results for this AM ADOPTION MANAGER procedure are in the results section. POC GLUCOSE Routine 05/20/2018 4:53 Results for this AM ADOPTION MANAGER procedure are in the results section. XR CHEST 1 VW PORTABLE Routine 05/20/2018 4:37 Results for this AM ADOPTION MANAGER procedure are in the results section. ESTIMATED GFR Routine 05/20/2018 4:25 Results for this AM ADOPTION MANAGER procedure are in the results section. PROTHROMBIN TIME WITH Routine 05/20/2018 4:25 Results for this INR AM ADOPTION MANAGER procedure are in the results section. PARTIAL THROMBOPLASTIN Routine 05/20/2018 4:25 Results for this TIME (PTT) AM ADOPTION MANAGER procedure are in the results section. PHOSPHORUS LEVEL Routine 05/20/2018 4:25 Results for this AM ADOPTION MANAGER procedure are in the results section. MAGNESIUM LEVEL Routine 05/20/2018 4:25 Results for this AM ADOPTION MANAGER procedure are in the results section. IONIZED CALCIUM Routine 05/20/2018 4:25 Results for this AM ADOPTION MANAGER procedure are in the results section. HC COMPLETE BLD COUNT Routine 05/20/2018 4:25 Results for this W/AUTO DIFF AM ADOPTION MANAGER procedure are in the results section. BASIC METABOLIC PANEL Routine 05/20/2018 4:25 Results for this AM ADOPTION MANAGER procedure are in the results section. POC GLUCOSE Routine 05/20/2018 12:57 Results for this AM ADOPTION MANAGER procedure are in the results section. POC GLUCOSE Routine 05/19/2018 10:02 Results for this PM ADOPTION MANAGER procedure are in the results section. POC GLUCOSE Routine 05/19/2018 9:15 Results for this PM ADOPTION MANAGER procedure are in the results section. POC GLUCOSE Routine 05/19/2018 8:05 Results for this PM ADOPTION MANAGER procedure are in the results section. ACTIVATED CLOTTING Routine 05/19/2018 8:01 Results for this TIME, LOW RESPONSE PM ADOPTION MANAGER procedure are in the results section. POC GLUCOSE Routine 05/19/2018 6:01 Results for this PM ADOPTION MANAGER procedure are in the results section. POC GLUCOSE Routine 05/19/2018 5:15 Results for this PM ADOPTION MANAGER procedure are in the results section. POC GLUCOSE Routine 05/19/2018 4:27 Results for this PM ADOPTION MANAGER procedure are in the results section. CV PCI STENT Routine 05/19/2018 3:52 Results for this PM ADOPTION MANAGER procedure are in the results section. ACTIVATED CLOTTING Routine 05/19/2018 3:41 Results for this TIME, LOW RESPONSE PM ADOPTION MANAGER procedure are in the results section. ACTIVATED CLOTTING Routine 05/19/2018 3:32 Results for this TIME, LOW RESPONSE PM ADOPTION MANAGER procedure are in the results section. ACTIVATED CLOTTING Routine 05/19/2018 3:27 Results for this TIME, LOW RESPONSE PM ADOPTION MANAGER procedure are in the results section. ACTIVATED CLOTTING Routine 05/19/2018 2:56 Results for this TIME, LOW RESPONSE PM ADOPTION MANAGER procedure are in the results section. POC GLUCOSE Routine 05/19/2018 2:06 Results for this PM ADOPTION MANAGER procedure are in the results section. POC GLUCOSE Routine 05/19/2018 12:57 Results for this PM ADOPTION MANAGER procedure are in the results section. POC GLUCOSE Routine 05/19/2018 12:08 Results for this PM ADOPTION MANAGER procedure are in the results section. POC GLUCOSE Routine 05/19/2018 11:07 Results for this AM ADOPTION MANAGER procedure are in the results section. POC GLUCOSE Routine 05/19/2018 10:35 Results for this AM ADOPTION MANAGER procedure are in the results section. POC GLUCOSE Routine 05/19/2018 10:09 Results for this AM ADOPTION MANAGER procedure are in the results section. LIDOCAINE LEVEL STAT 05/19/2018 9:27 Results for this AM ADOPTION MANAGER procedure are in the results section. POC GLUCOSE Routine 05/19/2018 9:10 Results for this AM ADOPTION MANAGER procedure are in the results section. POC GLUCOSE Routine 05/19/2018 8:04 Results for this AM ADOPTION MANAGER procedure are in the results section. POC GLUCOSE Routine 05/19/2018 6:58 Results for this AM ADOPTION MANAGER procedure are in the results section. POC GLUCOSE Routine 05/19/2018 4:54 Results for this AM ADOPTION MANAGER procedure are in the results section. ESTIMATED GFR Routine 05/19/2018 4:30 Results for this AM ADOPTION MANAGER procedure are in the results section. HEPATITIS B SURFACE Routine 05/19/2018 4:30 Results for this ANTIGEN AM ADOPTION MANAGER procedure are in the results section. PHOSPHORUS LEVEL Routine 05/19/2018 4:30 Results for this AM ADOPTION MANAGER procedure are in the results section. MAGNESIUM LEVEL Routine 05/19/2018 4:30 Results for this AM ADOPTION MANAGER procedure are in the results section. IONIZED CALCIUM Routine 05/19/2018 4:30 Results for this AM ADOPTION MANAGER procedure are in the results section. HC COMPLETE BLD COUNT Routine 05/19/2018 4:30 Results for this W/AUTO DIFF AM ADOPTION MANAGER procedure are in the results section. BASIC METABOLIC PANEL Routine 05/19/2018 4:30 Results for this AM ADOPTION MANAGER procedure are in the results section. POC GLUCOSE Routine 05/19/2018 3:57 Results for this AM ADOPTION MANAGER procedure are in the results section. POC GLUCOSE Routine 05/19/2018 3:00 Results for this AM ADOPTION MANAGER procedure are in the results section. POC GLUCOSE Routine 05/19/2018 1:57 Results for this AM ADOPTION MANAGER procedure are in the results section. POC GLUCOSE Routine 05/19/2018 1:20 Results for this AM ADOPTION MANAGER procedure are in the results section. POC GLUCOSE Routine 05/18/2018 11:55 Results for this PM ADOPTION MANAGER procedure are in the results section. POC GLUCOSE Routine 05/18/2018 11:18 Results for this PM ADOPTION MANAGER procedure are in the results section. POC GLUCOSE Routine 05/18/2018 10:04 Results for this PM ADOPTION MANAGER procedure are in the results section. POC GLUCOSE Routine 05/18/2018 8:40 Results for this PM ADOPTION MANAGER procedure are in the results section. URINALYSIS SCREEN AND Routine 05/18/2018 5:40 Results for this MICROSCOPY, WITH REFLEX PM ADOPTION MANAGER procedure are in TO CULTURE the results section. GRAM STAIN Routine 05/18/2018 5:21 Results for this PM ADOPTION MANAGER procedure are in the results section. URINE CULTURE Routine 05/18/2018 5:21 Results for this PM ADOPTION MANAGER procedure are in the results section. POC GLUCOSE Routine 05/18/2018 5:20 Results for this PM ADOPTION MANAGER procedure are in the results section. POC GLUCOSE Routine 05/18/2018 2:27 Results for this PM ADOPTION MANAGER procedure are in the results section. CV PCI STENT Routine 05/18/2018 1:16 Results for this PM ADOPTION MANAGER procedure are in the results section. POC GLUCOSE Routine 05/18/2018 11:23 Results for this AM ADOPTION MANAGER procedure are in the results section. XR ABDOMEN 1 VW Routine 05/18/2018 10:57 Results for this AM ADOPTION MANAGER procedure are in the results section. POC GLUCOSE Routine 05/18/2018 10:28 Results for this AM ADOPTION MANAGER procedure are in the results section. POC GLUCOSE Routine 05/18/2018 9:04 Results for this AM ADOPTION MANAGER procedure are in the results section. POC GLUCOSE Routine 05/18/2018 8:05 Results for this AM ADOPTION MANAGER procedure are in the results section. POC GLUCOSE Routine 05/18/2018 6:53 Results for this AM ADOPTION MANAGER procedure are in the results section. POC GLUCOSE Routine 05/18/2018 6:21 Results for this AM ADOPTION MANAGER procedure are in the results section. POC GLUCOSE Routine 05/18/2018 4:57 Results for this AM ADOPTION MANAGER procedure are in the results section. ESTIMATED GFR Routine 05/18/2018 4:00 Results for this AM ADOPTION MANAGER procedure are in the results section. MAGNESIUM LEVEL Routine 05/18/2018 4:00 Results for this AM ADOPTION MANAGER procedure are in the results section. IONIZED CALCIUM Routine 05/18/2018 4:00 Results for this AM ADOPTION MANAGER procedure are in the results section. HC COMPLETE BLD COUNT Routine 05/18/2018 4:00 Results for this W/AUTO DIFF AM ADOPTION MANAGER procedure are in the results section. BASIC METABOLIC PANEL Routine 05/18/2018 4:00 Results for this AM ADOPTION MANAGER procedure are in the results section. LIDOCAINE LEVEL Timed 05/18/2018 4:00 Results for this AM ADOPTION MANAGER procedure are in the results section. POC GLUCOSE Routine 05/18/2018 3:56 Results for this AM ADOPTION MANAGER procedure are in the results section. XR CHEST 1 VW PORTABLE Routine 05/18/2018 3:55 Results for this AM ADOPTION MANAGER procedure are in the results section. POC GLUCOSE Routine 05/18/2018 2:59 Results for this AM ADOPTION MANAGER procedure are in the results section. POC GLUCOSE Routine 05/18/2018 1:53 Results for this AM ADOPTION MANAGER procedure are in the results section. POC GLUCOSE Routine 05/18/2018 1:01 Results for this AM ADOPTION MANAGER procedure are in the results section. POC GLUCOSE Routine 05/17/2018 11:01 Results for this PM ADOPTION MANAGER procedure are in the results section. POC GLUCOSE Routine 05/17/2018 9:24 Results for this PM ADOPTION MANAGER procedure are in the results section. ACTIVATED CLOTTING Routine 05/17/2018 7:43 Results for this TIME, LOW RESPONSE PM ADOPTION MANAGER procedure are in the results section. POC GLUCOSE Routine 05/17/2018 7:15 Results for this PM ADOPTION MANAGER procedure are in the results section. POC GLUCOSE Routine 05/17/2018 5:41 Results for this PM ADOPTION MANAGER procedure are in the results section. CV LEFT HEART CATH LV Routine 05/17/2018 5:16 Results for this GRAM WITH CORS PM ADOPTION MANAGER procedure are in the results section. POC GLUCOSE Routine 05/17/2018 2:56 Results for this PM ADOPTION MANAGER procedure are in the results section. POC GLUCOSE Routine 05/17/2018 2:04 Results for this PM ADOPTION MANAGER procedure are in the results section. POC GLUCOSE Routine 05/17/2018 1:05 Results for this PM ADOPTION MANAGER procedure are in the results section. POC GLUCOSE Routine 05/17/2018 12:07 Results for this PM ADOPTION MANAGER procedure are in the results section. POC GLUCOSE Routine 05/17/2018 10:51 Results for this AM ADOPTION MANAGER procedure are in the results section. ECG 12-LEAD Routine 05/17/2018 8:59 Results for this AM ADOPTION MANAGER procedure are in the results section. POC GLUCOSE Routine 05/17/2018 8:10 Results for this AM ADOPTION MANAGER procedure are in the results section. XR CHEST 1 VW PORTABLE Routine 05/17/2018 4:29 Results for this AM ADOPTION MANAGER procedure are in the results section. ESTIMATED GFR Routine 05/17/2018 3:00 Results for this AM ADOPTION MANAGER procedure are in the results section. MAGNESIUM LEVEL Routine 05/17/2018 3:00 Results for this AM ADOPTION MANAGER procedure are in the results section. IONIZED CALCIUM Routine 05/17/2018 3:00 Results for this AM ADOPTION MANAGER procedure are in the results section. HC COMPLETE BLD COUNT Routine 05/17/2018 3:00 Results for this W/AUTO DIFF AM ADOPTION MANAGER procedure are in the results section. LIDOCAINE LEVEL Routine 05/17/2018 3:00 Results for this AM ADOPTION MANAGER procedure are in the results section. COMPREHENSIVE METABOLIC Routine 05/17/2018 3:00 Results for this PANEL AM ADOPTION MANAGER procedure are in the results section. POC GLUCOSE Routine 05/16/2018 8:29 Results for this PM ADOPTION MANAGER procedure are in the results section. ESTIMATED GFR STAT 05/16/2018 5:40 Results for this PM ADOPTION MANAGER procedure are in the results section. MAGNESIUM LEVEL STAT 05/16/2018 5:40 Results for this PM ADOPTION MANAGER procedure are in the results section. IONIZED CALCIUM STAT 05/16/2018 5:40 Results for this PM ADOPTION MANAGER procedure are in the results section. BASIC METABOLIC PANEL STAT 05/16/2018 5:40 Results for this PM ADOPTION MANAGER procedure are in the results section. POC GLUCOSE Routine 05/16/2018 4:43 Results for this PM ADOPTION MANAGER procedure are in the results section. POC GLUCOSE Routine 05/16/2018 11:39 Results for this AM ADOPTION MANAGER procedure are in the results section. ECG 12-LEAD Routine 05/16/2018 9:52 Results for this AM ADOPTION MANAGER procedure are in the results section. POC GLUCOSE Routine 05/16/2018 7:47 Results for this AM ADOPTION MANAGER procedure are in the results section. ESTIMATED GFR Routine 05/16/2018 2:35 Results for this AM ADOPTION MANAGER procedure are in the results section. COMPREHENSIVE METABOLIC Routine 05/16/2018 2:35 Results for this PANEL AM ADOPTION MANAGER procedure are in the results section. MAGNESIUM LEVEL Routine 05/16/2018 2:35 Results for this AM ADOPTION MANAGER procedure are in the results section. IONIZED CALCIUM Routine 05/16/2018 2:35 Results for this AM ADOPTION MANAGER procedure are in the results section. HC COMPLETE BLD COUNT Routine 05/16/2018 2:35 Results for this W/AUTO DIFF AM ADOPTION MANAGER procedure are in the results section. POC GLUCOSE Routine 05/15/2018 8:56 Results for this PM ADOPTION MANAGER procedure are in the results section. POC GLUCOSE Routine 05/15/2018 5:40 Results for this PM ADOPTION MANAGER procedure are in the results section. POC GLUCOSE Routine 05/15/2018 5:07 Results for this PM ADOPTION MANAGER procedure are in the results section. POC GLUCOSE Routine 05/15/2018 11:29 Results for this AM ADOPTION MANAGER procedure are in the results section. XR CHEST 1 VW PORTABLE Routine 05/15/2018 9:45 Results for this AM ADOPTION MANAGER procedure are in the results section. URINALYSIS SCREEN AND STAT 05/15/2018 9:00 Results for this MICROSCOPY, WITH REFLEX AM ADOPTION MANAGER procedure are in TO CULTURE the results section. URINE CULTURE STAT 05/15/2018 9:00 Results for this AM ADOPTION MANAGER procedure are in the results section. ECG 12-LEAD Routine 05/15/2018 8:13 Results for this AM ADOPTION MANAGER procedure are in the results section. ECG 12-LEAD Routine 05/15/2018 8:13 Results for this AM ADOPTION MANAGER procedure are in the results section. POC GLUCOSE Routine 05/15/2018 7:44 Results for this AM ADOPTION MANAGER procedure are in the results section. POC GLUCOSE Routine 05/15/2018 5:00 Results for this AM ADOPTION MANAGER procedure are in the results section. TROPONIN Routine 05/15/2018 3:30 Results for this AM ADOPTION MANAGER procedure are in the results section. ESTIMATED GFR Routine 05/15/2018 3:30 Results for this AM ADOPTION MANAGER procedure are in the results section. COMPREHENSIVE METABOLIC Routine 05/15/2018 3:30 Results for this PANEL AM ADOPTION MANAGER procedure are in the results section. PARTIAL THROMBOPLASTIN Routine 05/15/2018 3:30 Results for this TIME (PTT) AM ADOPTION MANAGER procedure are in the results section. PROTHROMBIN TIME WITH Routine 05/15/2018 3:30 Results for this INR AM ADOPTION MANAGER procedure are in the results section. PHOSPHORUS LEVEL Routine 05/15/2018 3:30 Results for this AM ADOPTION MANAGER procedure are in the results section. MAGNESIUM LEVEL Routine 05/15/2018 3:30 Results for this AM ADOPTION MANAGER procedure are in the results section. IONIZED CALCIUM Routine 05/15/2018 3:30 Results for this AM ADOPTION MANAGER procedure are in the results section. HC COMPLETE BLD COUNT Routine 05/15/2018 3:30 Results for this W/AUTO DIFF AM ADOPTION MANAGER procedure are in the results section. POC GLUCOSE Routine 05/15/2018 12:19 Results for this AM ADOPTION MANAGER procedure are in the results section. TROPONIN Timed 05/14/2018 11:00 Results for this PM ADOPTION MANAGER procedure are in the results section. ECG 12-LEAD STAT 05/14/2018 10:09 Results for this PM ADOPTION MANAGER procedure are in the results section. ECG 12-LEAD STAT 05/14/2018 9:41 Results for this PM ADOPTION MANAGER procedure are in the results section. XR CHEST 1 VW PORTABLE STAT 05/14/2018 9:19 Results for this PM ADOPTION MANAGER procedure are in the results section. CT HEAD WO CONTRAST STAT 05/14/2018 8:24 Results for this PM ADOPTION MANAGER procedure are in the results section. ECG 12-LEAD STAT 05/14/2018 7:40 Results for this PM ADOPTION MANAGER procedure are in the results section. MAGNESIUM LEVEL STAT 05/14/2018 7:40 Results for this PM ADOPTION MANAGER procedure are in the results section. ESTIMATED GFR STAT 05/14/2018 7:40 Results for this PM ADOPTION MANAGER procedure are in the results section. B NATRIURETIC PEPTIDE STAT 05/14/2018 7:40 Results for this PM ADOPTION MANAGER procedure are in the results section. LIPASE LEVEL STAT 05/14/2018 7:40 Results for this PM ADOPTION MANAGER procedure are in the results section. TROPONIN STAT 05/14/2018 7:40 Results for this PM ADOPTION MANAGER procedure are in the results section. CREATINE KINASE, TOTAL STAT 05/14/2018 7:40 Results for this (CPK) PM ADOPTION MANAGER procedure are in the results section. COMPREHENSIVE METABOLIC STAT 05/14/2018 7:40 Results for this PANEL PM ADOPTION MANAGER procedure are in the results section. PARTIAL THROMBOPLASTIN STAT 05/14/2018 7:40 Results for this TIME (PTT) PM ADOPTION MANAGER procedure are in the results section. PROTHROMBIN TIME WITH STAT 05/14/2018 7:40 Results for this INR PM ADOPTION MANAGER procedure are in the results section. HC COMPLETE BLD COUNT STAT 05/14/2018 7:40 Results for this W/AUTO DIFF PM ADOPTION MANAGER procedure are in the results section. ECG ED PRELIMINARY Routine 05/14/2018 7:37 Results for this INTERPRETATION PM ADOPTION MANAGER procedure are in the results section. ECG ED PRELIMINARY Routine 05/14/2018 7:37 Results for this INTERPRETATION PM ADOPTION MANAGER procedure are in the results section. ECG ED PRELIMINARY Routine 05/14/2018 7:37 Results for this INTERPRETATION PM ADOPTION MANAGER procedure are in the results section. MT CRITICAL CARE, E/M Routine 05/14/2018 7:37 Results for this 30-74 MINUTES PM ADOPTION MANAGER procedure are in the results section. POC GLUCOSE Routine 04/21/2018 11:43 Results for this AM ADOPTION MANAGER procedure are in the results section. POC GLUCOSE Routine 04/21/2018 9:38 Results for this AM ADOPTION MANAGER procedure are in the results section. POC GLUCOSE Routine 04/21/2018 7:37 Results for this AM ADOPTION MANAGER procedure are in the results section. TROPONIN Routine 04/21/2018 6:10 Results for this AM ADOPTION MANAGER procedure are in the results section. ESTIMATED GFR Routine 04/21/2018 6:10 Results for this AM ADOPTION MANAGER procedure are in the results section. COMPREHENSIVE METABOLIC Routine 04/21/2018 6:10 Results for this PANEL AM ADOPTION MANAGER procedure are in the results section. HC COMPLETE BLD COUNT Routine 04/21/2018 6:10 Results for this W/AUTO DIFF AM ADOPTION MANAGER procedure are in the results section. POC GLUCOSE Routine 04/20/2018 8:49 Results for this PM ADOPTION MANAGER procedure are in the results section. POC GLUCOSE Routine 04/20/2018 4:27 Results for this PM ADOPTION MANAGER procedure are in the results section. POC GLUCOSE Routine 04/20/2018 1:04 Results for this PM ADOPTION MANAGER procedure are in the results section. POC GLUCOSE Routine 04/20/2018 9:01 Results for this AM ADOPTION MANAGER procedure are in the results section. POC GLUCOSE Routine 04/20/2018 6:34 Results for this AM ADOPTION MANAGER procedure are in the results section. ESTIMATED GFR Routine 04/20/2018 5:30 Results for this AM ADOPTION MANAGER procedure are in the results section. PARTIAL THROMBOPLASTIN Routine 04/20/2018 5:30 Results for this TIME (PTT) AM ADOPTION MANAGER procedure are in the results section. PROTHROMBIN TIME WITH Routine 04/20/2018 5:30 Results for this INR AM ADOPTION MANAGER procedure are in the results section. PHOSPHORUS LEVEL Routine 04/20/2018 5:30 Results for this AM ADOPTION MANAGER procedure are in the results section. MAGNESIUM LEVEL Routine 04/20/2018 5:30 Results for this AM ADOPTION MANAGER procedure are in the results section. IONIZED CALCIUM Routine 04/20/2018 5:30 Results for this AM ADOPTION MANAGER procedure are in the results section. HC COMPLETE BLD COUNT Routine 04/20/2018 5:30 Results for this W/AUTO DIFF AM ADOPTION MANAGER procedure are in the results section. BASIC METABOLIC PANEL Routine 04/20/2018 5:30 Results for this AM ADOPTION MANAGER procedure are in the results section. HEPATITIS B SURFACE AB, Routine 04/20/2018 5:30 Results for this QUANTITATIVE AM ADOPTION MANAGER procedure are in the results section. HEPATITIS B SURFACE Routine 04/20/2018 5:30 Results for this ANTIBODY AM ADOPTION MANAGER procedure are in the results section. HEPATITIS B SURFACE Routine 04/20/2018 5:30 Results for this ANTIGEN AM ADOPTION MANAGER procedure are in the results section. POC GLUCOSE Routine 04/20/2018 5:20 Results for this AM ADOPTION MANAGER procedure are in the results section. POC GLUCOSE Routine 04/20/2018 4:08 Results for this AM ADOPTION MANAGER procedure are in the results section. XR CHEST 1 VW PORTABLE Routine 04/20/2018 3:58 Results for this AM ADOPTION MANAGER procedure are in the results section. POC GLUCOSE Routine 04/20/2018 3:01 Results for this AM ADOPTION MANAGER procedure are in the results section. POC GLUCOSE Routine 04/20/2018 1:54 Results for this AM ADOPTION MANAGER procedure are in the results section. POC GLUCOSE Routine 04/20/2018 12:48 Results for this AM ADOPTION MANAGER procedure are in the results section. POC GLUCOSE Routine 04/19/2018 11:59 Results for this PM ADOPTION MANAGER procedure are in the results section. POC GLUCOSE Routine 04/19/2018 10:37 Results for this PM ADOPTION MANAGER procedure are in the results section. POC GLUCOSE Routine 04/19/2018 9:20 Results for this PM ADOPTION MANAGER procedure are in the results section. POC GLUCOSE Routine 04/19/2018 9:19 Results for this PM ADOPTION MANAGER procedure are in the results section. POC GLUCOSE Routine 04/19/2018 4:25 Results for this PM ADOPTION MANAGER procedure are in the results section. POC GLUCOSE Routine 04/19/2018 11:05 Results for this AM ADOPTION MANAGER procedure are in the results section. POC GLUCOSE Routine 04/19/2018 9:08 Results for this AM ADOPTION MANAGER procedure are in the results section. ECG 12-LEAD Routine 04/19/2018 8:18 AM ADOPTION MANAGER POC GLUCOSE Routine 04/19/2018 7:04 Results for this AM ADOPTION MANAGER procedure are in the results section. POC GLUCOSE Routine 04/19/2018 6:04 Results for this AM ADOPTION MANAGER procedure are in the results section. POC GLUCOSE Routine 04/19/2018 4:48 Results for this AM ADOPTION MANAGER procedure are in the results section. XR CHEST 1 VW PORTABLE Routine 04/19/2018 4:29 Results for this AM ADOPTION MANAGER procedure are in the results section. ESTIMATED GFR Routine 04/19/2018 4:00 Results for this AM ADOPTION MANAGER procedure are in the results section. COMPREHENSIVE METABOLIC Routine 04/19/2018 4:00 Results for this PANEL AM ADOPTION MANAGER procedure are in the results section. TROPONIN Routine 04/19/2018 4:00 Results for this AM ADOPTION MANAGER procedure are in the results section. MAGNESIUM LEVEL Routine 04/19/2018 4:00 Results for this AM ADOPTION MANAGER procedure are in the results section. PROTHROMBIN TIME WITH Routine 04/19/2018 4:00 Results for this INR AM ADOPTION MANAGER procedure are in the results section. PHOSPHORUS LEVEL Routine 04/19/2018 4:00 Results for this AM ADOPTION MANAGER procedure are in the results section. IONIZED CALCIUM Routine 04/19/2018 4:00 Results for this AM ADOPTION MANAGER procedure are in the results section. HC COMPLETE BLD COUNT Routine 04/19/2018 4:00 Results for this W/AUTO DIFF AM ADOPTION MANAGER procedure are in the results section. POC GLUCOSE Routine 04/19/2018 3:03 Results for this AM ADOPTION MANAGER procedure are in the results section. POC GLUCOSE Routine 04/19/2018 1:52 Results for this AM ADOPTION MANAGER procedure are in the results section. POC GLUCOSE Routine 04/19/2018 1:04 Results for this AM ADOPTION MANAGER procedure are in the results section. US ABDOMEN COMPLETE Routine 04/19/2018 12:54 Results for this AM ADOPTION MANAGER procedure are in the results section. POC GLUCOSE Routine 04/18/2018 11:57 Results for this PM ADOPTION MANAGER procedure are in the results section. POC GLUCOSE Routine 04/18/2018 11:10 Results for this PM ADOPTION MANAGER procedure are in the results section. POC GLUCOSE Routine 04/18/2018 9:59 Results for this PM ADOPTION MANAGER procedure are in the results section. POC GLUCOSE Routine 04/18/2018 9:01 Results for this PM ADOPTION MANAGER procedure are in the results section. POC GLUCOSE Routine 04/18/2018 8:11 Results for this PM ADOPTION MANAGER procedure are in the results section. POC GLUCOSE Routine 04/18/2018 7:17 Results for this PM ADOPTION MANAGER procedure are in the results section. LIPASE LEVEL STAT 04/18/2018 6:30 Results for this PM ADOPTION MANAGER procedure are in the results section. AMYLASE LEVEL STAT 04/18/2018 6:30 Results for this PM ADOPTION MANAGER procedure are in the results section. ESTIMATED GFR STAT 04/18/2018 6:30 Results for this PM ADOPTION MANAGER procedure are in the results section. BETA HYDROXYBUTYRATE STAT 04/18/2018 6:30 Results for this PM ADOPTION MANAGER procedure are in the results section. BASIC METABOLIC PANEL STAT 04/18/2018 6:30 Results for this PM ADOPTION MANAGER procedure are in the results section. POC GLUCOSE Routine 04/18/2018 5:19 Results for this PM ADOPTION MANAGER procedure are in the results section. ECHOCARDIOGRAM 2D Routine 04/18/2018 5:18 Results for this COMPLETE W MMODE PM ADOPTION MANAGER procedure are in SPECTRAL COLOR DOPPLER the results (31037) section. TROPONIN STAT 04/18/2018 4:49 Results for this PM ADOPTION MANAGER procedure are in the results section. LIDOCAINE LEVEL STAT 04/18/2018 4:49 Results for this PM ADOPTION MANAGER procedure are in the results section. ARTERIAL BLOOD GAS Routine 04/18/2018 4:49 Results for this PM ADOPTION MANAGER procedure are in the results section. HEPATITIS B SURFACE AB, Routine 04/18/2018 4:49 Results for this QUANTITATIVE PM ADOPTION MANAGER procedure are in the results section. MT INSERT Routine 04/18/2018 4:27 Syncope, Results for this CATH,ART,PERCUT,SHORTTE PM ADOPTION MANAGER unspecified syncope procedure are in RM type the results section. ARTERIAL BLOOD GAS STAT 04/18/2018 3:49 Results for this PM ADOPTION MANAGER procedure are in the results section. POC GLUCOSE Routine 04/18/2018 12:51 Results for this PM ADOPTION MANAGER procedure are in the results section. TROPONIN STAT 04/18/2018 12:11 Results for this PM ADOPTION MANAGER procedure are in the results section. POC GLUCOSE Routine 04/18/2018 9:06 Results for this AM ADOPTION MANAGER procedure are in the results section. POC GLUCOSE Routine 04/18/2018 8:01 Results for this AM ADOPTION MANAGER procedure are in the results section. POC GLUCOSE Routine 04/18/2018 7:02 Results for this AM ADOPTION MANAGER procedure are in the results section. POC GLUCOSE Routine 04/18/2018 6:07 Results for this AM ADOPTION MANAGER procedure are in the results section. ECG 12-LEAD Routine 04/18/2018 5:29 Results for this AM ADOPTION MANAGER procedure are in the results section. POC GLUCOSE Routine 04/18/2018 5:05 Results for this AM ADOPTION MANAGER procedure are in the results section. POC GLUCOSE Routine 04/18/2018 4:09 Results for this AM ADOPTION MANAGER procedure are in the results section. POC GLUCOSE Routine 04/18/2018 3:24 Results for this AM ADOPTION MANAGER procedure are in the results section. XR CHEST 1 VW PORTABLE Routine 04/18/2018 3:02 Results for this AM ADOPTION MANAGER procedure are in the results section. HEMOGLOBIN A1C Timed 04/18/2018 2:45 Results for this AM ADOPTION MANAGER procedure are in the results section. ESTIMATED GFR Timed 04/18/2018 2:45 Results for this AM ADOPTION MANAGER procedure are in the results section. BETA HYDROXYBUTYRATE STAT 04/18/2018 2:45 Results for this AM ADOPTION MANAGER procedure are in the results section. PARTIAL THROMBOPLASTIN Timed 04/18/2018 2:45 Results for this TIME (PTT) AM ADOPTION MANAGER procedure are in the results section. PROTHROMBIN TIME WITH Timed 04/18/2018 2:45 Results for this INR AM ADOPTION MANAGER procedure are in the results section. PHOSPHORUS LEVEL Timed 04/18/2018 2:45 Results for this AM ADOPTION MANAGER procedure are in the results section. IONIZED CALCIUM Timed 04/18/2018 2:45 Results for this AM ADOPTION MANAGER procedure are in the results section. TROPONIN Timed 04/18/2018 2:45 Results for this AM ADOPTION MANAGER procedure are in the results section. LACTIC ACID LEVEL, Timed 04/18/2018 2:45 Results for this SEPSIS - NOW AND REPEAT AM ADOPTION MANAGER procedure are in 2X EVERY 3 HOURS the results section. THYROID STIMULATING Timed 04/18/2018 2:45 Results for this HORMONE AM ADOPTION MANAGER procedure are in the results section. CBC WITH PLATELET AND Timed 04/18/2018 2:45 Results for this DIFFERENTIAL AM ADOPTION MANAGER procedure are in the results section. MAGNESIUM LEVEL Timed 04/18/2018 2:45 Results for this AM ADOPTION MANAGER procedure are in the results section. COMPREHENSIVE METABOLIC Timed 04/18/2018 2:45 Results for this PANEL AM ADOPTION MANAGER procedure are in the results section. LIDOCAINE LEVEL Timed 04/18/2018 2:45 Results for this AM ADOPTION MANAGER procedure are in the results section. POC GLUCOSE Routine 04/18/2018 2:27 Results for this AM ADOPTION MANAGER procedure are in the results section. POC GLUCOSE Routine 04/18/2018 1:13 Results for this AM ADOPTION MANAGER procedure are in the results section. CONSULT TO OSTOMY CARE Routine 04/17/2018 11:57 NURSE PM ADOPTION MANAGER TROPONIN Timed 04/17/2018 11:50 Results for this PM ADOPTION MANAGER procedure are in the results section. LACTIC ACID LEVEL, Timed 04/17/2018 11:50 Results for this SEPSIS - NOW AND REPEAT PM ADOPTION MANAGER procedure are in 2X EVERY 3 HOURS the results section. POC GLUCOSE Routine 04/17/2018 11:28 Results for this PM ADOPTION MANAGER procedure are in the results section. BLOOD CULTURE, AEROBIC Routine 04/17/2018 9:44 Results for this & ANAEROBIC PM ADOPTION MANAGER procedure are in the results section. POC GLUCOSE Routine 04/17/2018 9:36 Results for this PM ADOPTION MANAGER procedure are in the results section. BLOOD CULTURE, AEROBIC Routine 04/17/2018 9:35 Results for this & ANAEROBIC PM ADOPTION MANAGER procedure are in the results section. POC GLUCOSE Routine 04/17/2018 8:09 Results for this PM ADOPTION MANAGER procedure are in the results section. CT HEAD WO CONTRAST STAT 04/17/2018 8:03 Results for this PM ADOPTION MANAGER procedure are in the results section. XR CHEST 1 VW PORTABLE STAT 04/17/2018 7:21 Results for this PM ADOPTION MANAGER procedure are in the results section. LIDOCAINE LEVEL Routine 04/17/2018 7:00 Results for this PM ADOPTION MANAGER procedure are in the results section. THYROID STIMULATING Routine 04/17/2018 7:00 Results for this HORMONE PM ADOPTION MANAGER procedure are in the results section. ESTIMATED GFR STAT 04/17/2018 7:00 Results for this PM ADOPTION MANAGER procedure are in the results section. TYPE AND SCREEN Routine 04/17/2018 7:00 Results for this PM ADOPTION MANAGER procedure are in the results section. B NATRIURETIC PEPTIDE STAT 04/17/2018 7:00 Results for this PM ADOPTION MANAGER procedure are in the results section. TROPONIN STAT 04/17/2018 7:00 Results for this PM ADOPTION MANAGER procedure are in the results section. COMPREHENSIVE METABOLIC STAT 04/17/2018 7:00 Results for this PANEL PM ADOPTION MANAGER procedure are in the results section. LACTIC ACID LEVEL STAT 04/17/2018 7:00 Results for this PM ADOPTION MANAGER procedure are in the results section. PARTIAL THROMBOPLASTIN STAT 04/17/2018 7:00 Results for this TIME (PTT) PM ADOPTION MANAGER procedure are in the results section. PROTHROMBIN TIME WITH STAT 04/17/2018 7:00 Results for this INR PM ADOPTION MANAGER procedure are in the results section. PHOSPHORUS LEVEL STAT 04/17/2018 7:00 Results for this PM ADOPTION MANAGER procedure are in the results section. MAGNESIUM LEVEL STAT 04/17/2018 7:00 Results for this PM ADOPTION MANAGER procedure are in the results section. IONIZED CALCIUM STAT 04/17/2018 7:00 Results for this PM ADOPTION MANAGER procedure are in the results section. HC COMPLETE BLD COUNT STAT 04/17/2018 7:00 Results for this W/AUTO DIFF PM ADOPTION MANAGER procedure are in the results section. ECG 12-LEAD STAT 04/17/2018 6:58 Results for this PM ADOPTION MANAGER procedure are in the results section. POC GLUCOSE Routine 04/17/2018 6:50 Results for this PM ADOPTION MANAGER procedure are in the results section. after 10/26/2017 Results XR Chest 1 Vw Portable (05/21/2018 8:54 AM ADOPTION MANAGER)Only the most recent of10 resultswithin the time period is included. 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 [facility]-[id number] Procedure Note Hm Interface, Radiology Results Incoming - 05/21/2018 9:08 AM ADOPTION MANAGER EXAMINATION: XR CHEST 1 VW PORTABLE CLINICAL HISTORY: ICU pt stable with no clinical status changes COMPARISON: May 20, 2018 IMPRESSION: Transvenous fibrillator is in the left axillary fold. There is cardiomegaly, mediastinal widening and bilateral pulmonary vascular congestion with minimal edema. [facility]-[id number] Performing Organization Address City/[facility]/Zipcode Phone Number [facility] [address] [place] [address] POC glucose (05/21/2018 7:17 AM ADOPTION MANAGER)Only the most recent of112 resultswithin the time period is included. Pathologist [facility] POC glucose 281 (H) 65 - 99 mg/dL [facility] Comment: [facility] RN Notified Meter ID: [id number] Assistant Sales Manager: Cevallos Helga Specimen Performing Organization Address [facility] Phone Number [facility] DEPARTMENT OF PATHOLOGY [address] [place] [address] Estimated GFR (05/21/2018 3:40 AM ADOPTION MANAGER)Only the most recent of15 resultswithin the time period is included. [facility] Estimated GFR 8 (A) mL/min/1.73 [facility] Comment: [address] [facility] G1 >=90 Normal or high G2 60-89Mildly decreased [id number] to moderately decreased [id number] to severely decreased G4 15-29Severely decreased G5 <15Kidney failure The eGFR was calculated using the Chronic Kidney Disease Epidemiology Collaboration (CKD-EPI) equation. Interpretation is based on recommendations of the National Kidney Foundation-Kidney Disease Outcomes Quality Initiative (NKF-KDOQI) published in 2014. Specimen Plasma specimen Performing Organization Address [facility] Cent[facility]ode Phone Number [facility] DEPARTMENT OF PATHOLOGY [address] [place] [address] [place] [address] HOSPITAL Partial thromboplastin time, activated (05/21/2018 3:40 AM ADOPTION MANAGER)Only the most recent of7 resultswithin the time period is included. PTT 33.3 23.0 - 36.0 [facility] Comment: [facility] PTT therapeutic range for unfractionated heparin is HOSPITAL 61.0-112.0 seconds which corresponds to Anti-Xa 0.3-0.7 U/ml. Specimen Blood Performing Organization Address City/[facility]/Zipcode Phone Number [facility] DEPARTMENT OF PATHOLOGY [id number] [place] [address] Prothrombin time with INR (05/21/2018 3:40 AM ADOPTION MANAGER)Only the most recent of8 resultswithin the time period is included. Pathologist [facility] Prothrombin time 14.1 11.5 - 14.5 [facility] INR 1.1 [place] Comment: [facility] International Normalized Ratio (INR) is a therapeutic [facility] monitoring tool for patients who are stable on oral anticoagulant therapy. An INR of 2.0-3.0 is suggested for deep vein thrombosis/pulmonary embolism. Specimen Blood Performing Organization Address City/[facility]/Zipcode Phone Number [facility] DEPARTMENT OF PATHOLOGY [address] [place] [address] CBC with platelet and differential (05/21/2018 3:40 AM ADOPTION MANAGER)Only the most recent of13 resultswithin the time period is included. WBC 8.1 4.5 - 11.0 k/uL [facility] RBC 3.29 (L) 4.20 - 5.50 [facility] m/uL [facility] HGB 10.0 (L) 12.0 - 16.0 [facility] g/dL [facility] HCT 29.5 (L) 37.0 - 47.0 % [facility] MCV 89.7 82.0 - 100.0 fL [facility] MCH 30.4 27.0 - 34.0 pg [facility] MCHC 33.9 31.0 - 37.0 [facility] g/dL [facility] RDW - SD 41.4 37.0 - 55.0 fL [facility] MPV 10.7 6.9 - 11.0 fL [facility] Platelet count 268 150 - 400 K/uL [facility] Nucleated RBC 0.00 /100 WBC [facility] Neutrophils 67.1 39.0 - 69.0 % [facility] Lymphocytes 19.7 (L) 25.0 - 45.0 % [facility] Monocytes 10.2 (H) 0.0 - 10.0 % [facility] Eosinophils 2.0 0.0 - 5.0 % [facility] Basophils 0.5 0.0 - 1.0 % [facility] Immature granulocytes 0.5 0.0 - 1.0 % [facility] Specimen Blood Performing Organization Address City/[facility]ercode Phone Number [facility] DEPARTMENT OF PATHOLOGY [address] [place] [address] [place] [address] HOSPITAL Phosphorus level (05/21/2018 3:40 AM ADOPTION MANAGER)Only the most recent of8 resultswithin the time period is included. Phosphorus 5.8 (H) 2.4 - 4.5 mg/dL [facility] Specimen Plasma specimen Performing Organization Address [facility] Centercode Phone Number [facility] DEPARTMENT OF PATHOLOGY [address] [place] [address] [place] [address] HOSPITAL Magnesium level (05/21/2018 3:40 AM ADOPTION MANAGER)Only the most recent of13 resultswithin the time period is included. Magnesium 2.1 1.6 - 2.4 mg/dL [facility] Specimen Plasma specimen Performing Organization Address City/[facility] Centercode Phone Number [facility] DEPARTMENT OF PATHOLOGY [address] [place] [address] [place] [address] HOSPITAL Ionized calcium (05/21/2018 3:40 AM ADOPTION MANAGER)Only the most recent of12 resultswithin the time period is included. pH 7.39 [facility] Ionized calcium 1.02 (L) 1.11 - 1.32 [facility] mmol/L [facility] Specimen Plasma specimen Performing Organization Address City/[facility] Centercode Phone Number [facility] DEPARTMENT OF PATHOLOGY [address] [place] [address] Basic metabolic panel (05/21/2018 3:40 AM ADOPTION MANAGER)Only the most recent of7 resultswithin the time period is included. Sodium 134 (L) 135 - 148 mEq/L [facility] Potassium 3.9 3.5 - 5.0 mEq/L [facility] Chloride 97 (L) 98 - 112 mEq/L [facility] CO2 21 (L) 24 - 31 mEq/L [facility] Anion gap 16@ANIO (H) 7 - 15 mEq/L [facility] BUN 59 (H) 8 - 23 mg/dL [facility] Creatinine 5.31 (H) 0.50 - 0.90 mg/dL [facility] Glucose 286 (H) 65 - 99 mg/dL [facility] Calcium 8.5 (L) 8.8 - 10.2 mg/dL [facility] Specimen Plasma specimen Performing Organization Address [facility]ori Phone Number [facility] DEPARTMENT OF PATHOLOGY [address] [place] [address] ECG 12 lead (05/20/2018 3:40 PM ADOPTION MANAGER)Only the most recent of10 resultswithin the time period is included. Ventricular rate 61 [facility] Atrial rate 61 [facility] MT interval 240 [facility] QRSD interval 110 [facility] QT interval 460 [facility] QTC interval 463 [facility] P axis 1 62 [facility] QRS axis 1 -12 [facility] T wave axis 158 [facility] EKG impression Sinus rhythm with 1st degree AV block-Incomplete left bundle branch block-Marked ST abnormality, possible lateral subendocardial injury- Abnormal ECG-In automated comparison with ECG of 17-MAY-2018 08:59,-Incomplete left bundle branch block is now [facility] MUSE present-Minimal criteria for Anterior infarct are no longer present- Specimen Narrative Performed At Performing Organization Address City/State/Zipcode Phone Number [facility] MUSE [address] [place] [address] Activated clotting time, low response (05/19/2018 8:01 PM ADOPTION MANAGER)Only the most recent of6 resultswithin the time period is included. Activated clotting 137 89 - 169 sec [facility] time, low response Comment: [place] Meter ID: [id number] [facility] Assistant Sales Manager: Dario Partida Specimen Performing Organization Address City/[facility]/Zipcode Phone Number [facility] DEPARTMENT OF PATHOLOGY [id number] [place] [address] AND GENOMIC MEDICINE [facility] [address] [place] [address] Cv liaison inspection laboratory assistant procedure (05/19/2018 3:52 PM ADOPTION MANAGER) Specimen Narrative Performed At PROCEDURE: PCI of RCA CUPID A4 Nigerian micro-puncture set was used to gain access to the right femoral artery using ultrasound guidance. Itwas exchanged for a 6 Nigerian short sheath. I used a 6 Nigerian 3DRC guide with sideholes to cannulate the [...] JASPREET-3 flow upon completion. Performing Organization Address City/[facility]/Zipcode Phone Number [facility] [address] [place] [address] Lidocaine level (05/19/2018 9:27 AM ADOPTION MANAGER)Only the most recent of6 resultswithin the time period is included. Pathologist [facility] Lidocaine 2.83 1.50 - 5.00 ug/mL [facility] Specimen Blood Performing Organization Address City/[facility] Centercode Phone Number [facility] DEPARTMENT OF PATHOLOGY AND [address] [place] [address] [address] Hepatitis B surface antigen (05/19/2018 4:30 AM ADOPTION MANAGER)Only the most recent of2 resultswithin the time period is included. Hepatitis B surface Non-reactive Non-reactive [facility] Specimen Blood Performing Organization Address [facility] Centercode Phone Number [facility] DEPARTMENT OF PATHOLOGY [address] [place] [address] AND [facility] [id number] [place] [address] HOSPITAL Urinalysis screen and microscopy, with reflex to culture (05/18/2018 5:40 PM ADOPTION MANAGER)Only the most recent of2 resultswithin the time period is included. Specimen site Reyes [facility] Color, UA Yellow [facility] Appearance, UA Cloudy [facility] Specific gravity, UA 1.025 1.001 - 1.030 [facility] pH, UA 5.0 5.0 - 9.0 [facility] Protein, UA Negative Negative [facility] Glucose, UA Negative Negative [facility] Ketones, UA Negative Negative [facility] Bilirubin, UA Negative Negative [facility] Blood, UA Large (A) Negative [facility] Nitrite, UA Negative Negative [facility] Urobilinogen, UA <2.0 <2.0 E.U./dL [facility] Leukocyte esterase, Large (A) Negative [facility] Epithelial cells, UA 3 /HPF [facility] WBC, UA 72 (H) 0 - 4 /HPF [facility] RBC, UA >200 (H) 0 - 5 /HPF [facility] Bacteria, UA Few None seen [facility] WBC clumps, UA Few (A) [facility] Yeast, UA Few (A) [facility] Yeast with None seen [facility] pseudohyphae, UA [facility] Hyaline casts, UA 2-5 /LPF [facility] Specimen Urine Performing Organization Address [facility]ode Phone Number [facility] DEPARTMENT OF PATHOLOGY [id number] [place] [address] AND [facility] [id number] [place] [address] HOSPITAL Gram stain (05/18/2018 5:21 PM ADOPTION MANAGER) Gram stain result Few WBC's [facility] Gram positive rods HOSPITAL Moderate Yeast Comment: Specimen Information Specimen Source: Urine Specimen Site: Reyes Specimen Urine - Reyes Performing Organization Address City/[facility] Centercode Phone Number [facility] DEPARTMENT OF PATHOLOGY AND [address] [place] [phone] [address] Urine culture (05/18/2018 5:21 PM ADOPTION MANAGER)Only the most recent of2 resultswithin the time period is included. Urine culture Mixed jose <=10-3 col/cc [facility] isolate Comment: HOSPITAL Specimen Information Specimen Source: Urine Specimen Site: Reyes Specimen Urine - Reyes Performing Organization Address City/[facility]/Zipcode Phone Number [facility] DEPARTMENT OF PATHOLOGY AND [address] [place] [phone] [address] Cv liaison inspection laboratory assistant procedure (05/18/2018 1:16 PM ADOPTION MANAGER) Specimen Narrative Performed At PCI of te-moak LAD through the JONES: [facility] A 4 Nigerian micro-puncture set was used to gain access to the left radial artery. I introduced a 6 Nigerian JONES catheter and canulated the JONES to LAD. I advanced a Luge wire into the te-moak LAD which turnout to be a CONVEYOR WEIGHER OPERATOR. This was in a small portion of the vessel.The calcific nature of the vessel Would require rotational atherectomy. I decided against proceeding further. Will treat medically for now. Performing Organization Address [facility] Centercori Phone Number [facility] [address] [place] [address] XR Abdomen 1 Vw (05/18/2018 10:57 AM ADOPTION MANAGER) Specimen Narrative Performed At EXAMINATION: X[facility]BDOMEN 1 [facility] INDICATION: constipation COMPARISON: 07/01/2008 IMPRESSION: A catheter overlies the pelvis and left lower abdomen. Nonobstructive bowel gas pattern. Stool burden is within normal limits. Spondylosis. [facility]-[id number] Procedure Note Interface, Radiology Results Incoming - 05/18/2018 11:22 AM ADOPTION MANAGER EXAMINATION: XR ABDOMEN 1 VW INDICATION: constipation COMPARISON: 07/01/2008 IMPRESSION: A catheter overlies the pelvis and left lower abdomen. Nonobstructive bowel gas pattern. Stool burden is within normal limits. Spondylosis. [facility]-[id number] Performing Organization Address [facility] Phone Number [facility] [address] [place] [address] Cv liaison inspection laboratory assistant procedure (05/17/2018 5:16 PM ADOPTION MANAGER) Specimen Impressions Performed At 1. Three-vessel coronary artery disease [facility] 2. Patent JONES to LAD 3. Occluded SVG 4. Known Severe LV systolic dysfunction. PLAN: 1. PCI of the te-moak LAD through the JONES 2. PCI of [...] fashion and local anesthesia given. A 4 Nigerian micro-puncture set was used to gain access to the right femoral artery using ultrasound guidance.A 6 Nigerian short sheath was placed in the right [...] the JONES to LAD. Subsequently a 6 Nigerian pigtail catheter was advanced into the left [...] stenosis. 5. JONES to LAD: Widely Patent. [place] LAD contains severe diffuse disease. 6. SVG: Occluded SVG. 7. Left ventriculogram:Not performed. Known ejection fraction of 20% to 25%. Performing Organization Address City/State/Zipcode Phone Number [facility] [address] [place] [address] Comprehensive metabolic panel (05/17/2018 3:00 AM ADOPTION MANAGER)Only the most recent of8 resultswithin the time period is included. Sodium 137 135 - 148 mEq/L [facility] Potassium 3.8 3.5 - 5.0 mEq/L [facility] Chloride 102 98 - 112 mEq/L [facility] CO2 20 (L) 24 - 31 mEq/L [facility] Anion gap 15@ANIO 7 - 15 mEq/L [facility] BUN 57 (H) 8 - 23 mg/dL [facility] Creatinine 2.65 (H) 0.50 - 0.90 [facility] mg/dL [facility] Glucose 193 (H) 65 - 99 mg/dL [facility] Calcium 8.7 (L) 8.8 - 10.2 [facility] mg/dL [facility] Protein 5.9 (L) 6.3 - 8.3 g/dL [facility] Albumin 3.2 (L) 3.5 - 5.0 g/dL [facility] A/G ratio 1.2 0.7 - 3.8 [facility] Alkaline phosphatase 91 35 - 104 U/L [facility] AST 24 10 - 35 U/L [facility] ALT 42 5 - 50 U/L [facility] Total bilirubin 0.4 0.2 - 1.2 mg/dL [facility] Specimen Plasma specimen Performing Organization Address City/[facility]ori Phone Number [facility] DEPARTMENT OF PATHOLOGY [address] [place] [address] AND GENOMIC MEDICINE [facility] [address] [place] [address] HOSPITAL Troponin (05/15/2018 3:30 AM ADOPTION MANAGER)Only the most recent of10 resultswithin the time period is included. Troponin <0.30 0.00 - 0.30 [facility] Comment: ng/mL [facility] 0.11 - 1.49 ng/mlMay indicate increased risk of acute coronary syndrome. >=1.5 ng/mlConsistent with acute myocardial infarction. The diagnostic value of a single normal or non-diagnostic result is questionable.Serial samples at 2-6 hour intervals are required to rule out acute myocardial injury. Specimen Plasma specimen Performing Organization Address City/[facility]ercode Phone Number [facility] DEPARTMENT OF PATHOLOGY [address] [place] [address] AND GENOMIC MEDIC[facility] [address] [facility] [address] Head Wo Contrast (05/14/2018 8:24 PM ADOPTION MANAGER)Only the most recent of2 resultswithin the time period is included. Specimen Narrative Performed At EXAMINATION:CT HEAD WO CONTRAST [...] when compared with prior CT from 04/17/2018.. [facility]-[id number] Procedure Note Interface, Radiology Results Incoming - 05/14/2018 8:36 PM ADOPTION MANAGER EXAMINATION: CT HEAD WO CONTRAST CLINICAL HISTORY: [...] when compared with prior CT from 04/17/2018.. [facility]-[id number] Performing Organization Address City/[facility]/Zipcode Phone Number [facility] [address] [place] [address] B natriuretic peptide (05/14/2018 7:40 PM ADOPTION MANAGER)Only the most recent of2 resultswithin the time period is included. BNP 877 (H) 0 - 100 pg/mL [facility] Specimen Blood Performing Organization Address [facility] Phone Number [facility] DEPARTMENT OF PATHOLOGY [address] [place] [address] [place] [address] HOSPITAL Lipase level (05/14/2018 7:40 PM ADOPTION MANAGER)Only the most recent of2 resultswithin the time period is included. Lipase 37 13 - 60 U/L [facility] Specimen Plasma specimen Performing Organization Address [facility] Phone Number [facility] DEPARTMENT OF PATHOLOGY [address] [place] [address] Creatine kinase, total (CPK) (05/14/2018 7:40 PM ADOPTION MANAGER) Creatine kinase 95 26 - 192 U/L [facility] Specimen Plasma specimen Performing Organization Address [facility] Phone Number [facility] DEPARTMENT OF PATHOLOGY [address] [place] [address] ECG ED Preliminary Interpretation - Not an Order (05/14/2018 7:37 PM ADOPTION MANAGER)Only the most recent of3 resultswithin the time period is included. Narrative Performed At Curt Chaves MD 05/15/20182:41 AM ECG ED Preliminary Interpretation - Not an Order Performed by: Curt Chaves MD Authorized by: Curt Chaves MD ECG reviewed by ED Physician in the absence of a glass artist: yes Interpretation: Interpretation: abnormal Rate: ECG rate:90 ECG rate assessment: normal Rhythm: Rhythm: sinus rhythm Ectopy: Ectopy: PVCs QRS: QRS axis:Normal QRS intervals:Normal ST segments: ST segments:Normal T waves: T waves: normal CRITICAL CARE (05/14/2018 7:37 PM ADOPTION MANAGER) Narrative Performed At Curt Chaves MD 05/15/20182:41 [...] AICD defibrillation, amiodarone with drip, cardiology consultation, correctional facility nurse consultation) Critical care was time spent personally [...] B surface Ab, quantitative (04/20/2018 5:30 AM ADOPTION MANAGER)Only the most recent of2 resultswithin the time period is included. [facility] Signature Hepatitis B surface >1000.00 IU/L [facility] Comment: The anti-HBs is greater than or [...] refer to MMWR May 22, 2005/Vol. 54(No. 16);06-22, and for healthcare workers refer to MMWR May 19, 2013/Vol. 62(No. 10);06-18. Reference Interval: anti-HBs 9.99 IU/L or less ....... Negative 10.00 IU/L or greater .... Positive Results greater than 1,000.00 IU/L are reported as greater than 1,000.00 IU/L. This assay should not be used for blood donor screening, associated re-entry protocols, or for screening Human Cell, Tissues and Cellular and Tissue-Based Products (HCT/P). Performed by [facility], [address] [place] [id number] [email or web address], Thomas Grover MD - Lab. Director Specimen Serum Performing Organization Address [facility]/Zipcode Phone Number [facility] [address] [place] [id number] [facility] [address] [place] [address] Hepatitis B surface antibody (04/20/2018 5:30 AM ADOPTION MANAGER) Hepatitis B surface Reactive (A) Non-reactive [facility] Specimen Blood Performing Organization Address City/[facility]ercode Phone Number [facility] DEPARTMENT OF PATHOLOGY AND [address] [place] [address] GENOMIC MEDICINE [address] [address] US Abdomen Complete (04/19/2018 12:54 AM ADOPTION MANAGER) Specimen Narrative Performed At EXAM: US ABDOMEN COMPLETE [...] cholecystitis. 2. No other abnormality is identified. [facility]-[id number] Procedure Note Interface, Radiology Results Incoming - 04/19/2018 1:16 AM ADOPTION MANAGER EXAM: US ABDOMEN COMPLETE CLINICAL DATA: Nausea [...] cholecystitis. 2. No other abnormality is identified. [facility]-[id number] Performing Organization Address City/State/Zipcode Phone Number [facility] [address] [place] [address] Beta hydroxybutyrate (04/18/2018 6:30 PM ADOPTION MANAGER)Only the most recent of2 resultswithin the time period is included. Beta hydroxybutyrate 0.25 0.02 - 0.27 [facility] mmol/L [facility] Specimen Blood Performing Organization Address City/[facility]/Zipcode Phone Number [facility] DEPARTMENT OF PATHOLOGY [id number] [place] [address] [place] [address] HOSPITAL Amylase level (04/18/2018 6:30 PM ADOPTION MANAGER) Amylase 9 13 - 73 U/L [facility] Specimen Plasma specimen Performing Organization Address City/[facility]ode Phone Number [facility] DEPARTMENT OF PATHOLOGY [id number] [place] [address] Echocardiogram complete w contrast and 3D if needed (04/18/2018 5:18 PM ADOPTION MANAGER) AoV Area, Vmax 1.40 cm2 [facility] AoV Area, VTI 1.39 cm2 [facility] AoV Mean PG 4.57 mmHg HM [facility] AoV Peak PG 9.15 mmHg HM [facility] AoV Vmax 1.51 m/s [facility] AoV VTI 0.25 m [facility] BSA [place]quis 0.00 m2 HM [facility] [...] m/s [facility] LVOT VTI 0.11 m [facility] LVPWD,d 1.21 cm [facility] TR [...] HM [facility] RVSP 30.40 mmHg HM [facility] Specimen Narrative Performed At This is a technically [...] visualised. Performing Organization Address City/State/Zipcode Phone Number [facility] [address] [place] [address] Arterial blood gas (04/18/2018 4:49 PM ADOPTION MANAGER)Only the most recent of2 resultswithin the time period is included. pH, arterial 7.35 7.35 - 7.45 [facility] pCO2, arterial 41 35 - 45 mmHg [facility] pO2, arterial 119 (H) 80 - 90 mmHg [facility] Bicarbonate, 22.2 21.0 - 28.0 [facility] arterial mmol/L [facility] Base excess, -3 (L) -2 - 2 mEq/L [facility] O2 saturation, 98 95 - 100 % [facility] Specimen Blood Performing Organization Address City/[facility]/Zipcode Phone Number [facility] DEPARTMENT OF PATHOLOGY [address] [place] [address] AND GENOMIC MEDICINE [facility] [address] Arterial Line Insertion (04/18/2018 4:27 PM ADOPTION MANAGER) Narrative Performed At Margret Waddell NP-C 04/18/20184:28 [...] 2x every 3 hours (04/18/2018 2:45 AM ADOPTION MANAGER)Only the most recent of2 resultswithin the time period is included. Lactic acid 1.8 0.5 - 2.2 mmol/L [facility] Specimen Plasma specimen Performing Organization Address City/[facility] Phone Number [facility] DEPARTMENT OF PATHOLOGY [address] [place] [address] Thyroid stimulating hormone (04/18/2018 2:45 AM ADOPTION MANAGER)Only the most recent of2 resultswithin the time period is included. TSH 3.35 0.27 - 4.20 uIU/mL [facility] Specimen Plasma specimen Performing Organization Address [facility] Phone Number [facility] DEPARTMENT OF PATHOLOGY [address] [place] [address] Hemoglobin A1c (04/18/2018 2:45 AM ADOPTION MANAGER) Hemoglobin A1C 7.8 (H) 4.0 - 6.0 % [facility] Comment: [facility] Less than 6% - Goal of therapy for Type II Diabetes Less than 7%-Goal of therapy for Type I Diabetes Less than 8%-Acceptable control for Type I or Type II Diabetes Greater than 8%-Unacceptable control; action indicated. ([id number]) Specimen Performing Organization Address [facility] Phone Number [facility] DEPARTMENT OF PATHOLOGY [address] [place] [address] Blood culture, aerobic & anaerobic (04/17/2018 9:44 PM ADOPTION MANAGER)Only the most recent of2 resultswithin the time period is included. Blood culture No growth after 5 days of incubation. [facility] isolate Comment: HOSPITAL Specimen Information Specimen Source: Blood Specimen Site: Forearm, left Specimen Blood - Forearm, left Performing Organization Address City/[facility] Phone Number [facility] DEPARTMENT OF PATHOLOGY AND [address] [place] [address] [facility] [address] [place] [address] Type and screen (04/17/2018 7:00 PM ADOPTION MANAGER) ABO grouping A [facility] Rh type POS [facility] Antibody screen (gel) NEG [facility] Specimen Blood Performing Organization Address City/[facility]ode Phone Number [facility] DEPARTMENT OF PATHOLOGY [id number] [place] [address] AND [facility] [id number] [place] [address] HOSPITAL Lactic acid level (04/17/2018 7:00 PM ADOPTION MANAGER) Lactic acid 3.2 (H) 0.5 - 2.2 mmol/L [facility] Specimen Plasma specimen Performing Organization Address [facility]/Zipcode Phone Number [facility] DEPARTMENT OF PATHOLOGY [id number] [place] [address] AND [facility] [id number] [place] [address] HOSPITAL after 10/26/2017 Insurance Payer Benefit Plan / Subscriber ID Effective Dates Phone Address Type Group MEDICARE MEDICARE PART A xxxxxxxxxxx 2016-Present [place], [place] Medicare AND B HUMANA HUMANA CHOICE xxxxxxxxx 2018-Present PPO CARE PPO Advance Directives Patient has advance care planning documents on file. For more information, please contact:[facility] [place] [address]
--- NOTE | 2018-10-27 19:54 | RAD REPORT ---
EXAM DESCRIPTION: RAD - Chest Pa And Lat (2 Views) - 10/27/2018 7:46 pm CLINICAL HISTORY: Cough;Dyspnea Chest pain. COMPARISON: <Comparisons> FINDINGS: Mild pulmonary edema is suspected. The heart is moderately enlarged in size with a single lead pacer/ defibrillator device present. No displaced fractures. Sternotomy wires present. IMPRESSION: Mild CHF versus volume overload.
[2018-10-27 20:16] LABS: Absolute Lymphocytes (CBC) 1.2 K/uL (0.7-4.9); Absolute Monocytes 1.3 K/uL (0.1-1.3); Absolute Neutrophil 11.2 K/uL (1.8-8.0); Basophils % 0.9 % (0-1.3); Eosinophils % 0.9 % (0-4.4); Hematocrit 39.7 % (36.0-45.0); Lymphocytes % 8.6 % (15.3-44.8); MPV 8.9 fL (7.6-11.3); Monocytes % 9.6 % (3.3-12.3); RBC Red Blood Cell Count 4.39 M/uL (3.86-4.86)
[2018-10-27] MEDS ORDERED: FUROSEMIDE 40 MG/4 ML VIAL ONE (20:22)
[2018-10-27 20:25] LABS: Magnesium 2.6 mg/dL (1.8-2.4); Potassium 4.3 mmol/L (3.5-5.1)
--- NOTE | 2018-10-27 22:10 | ER ---
Nurse's Notes [facility] Name: Amna Whyte Age: 63 yrs Sex: Female : 1955 Arrival Date: 10/27/2018 Time: 18:27 Bed 25 Private MD: Joe Wallis E Diagnosis: Pulmonary edema;Cough;End stage renal disease Presentation: 10/27 18:35 Presenting complaint: Patient states: Cough x 4 days with SOB. Transition of care: aj patient was not received from another setting of care. Onset of symptoms was October 23, 2018. Risk Assessment: Do you want to hurt yourself or someone else? Patient reports no desire to harm self or others. Initial Sepsis Screen: Does the patient meet any 2 criteria? No. Patient's initial sepsis screen is negative. Does the patient have a suspected source of infection? No. Patient's initial sepsis screen is negative. Care prior to arrival: None. 18:35 Method Of Arrival: Ambulatory aj 18:35 Acuity: BROOK 3 aj Triage Assessment: 18:36 General: Appears in no apparent distress. comfortable, Behavior is calm, cooperative, aj appropriate for age. Pain: Denies pain. Neuro: Level of Consciousness is awake, alert, obeys commands, Oriented to person, place, time, situation, Appropriate for age. Respiratory: Airway is patent Respiratory effort is even, unlabored, Respiratory pattern is regular, symmetrical. Respiratory: Reports shortness of breath cough that is. Derm: Skin is intact, is healthy with good turgor, Skin is pink, warm \\T\\ dry. normal. Historical: - Allergies: 18:36 Cephalexin; aj 18:36 Latex, Natural Rubber; aj 18:36 "Petty lite"; aj - Home Meds: 18:36 amiodarone 200 mg Oral tab 1 tab once daily [Active]; aspirin 81 mg Oral TbEC 1 tab aj once daily [Active]; atorvastatin 10 mg Oral tab 1 tab once daily [Active]; carvedilol 25 mg Oral tab 1 tab 2 times per day [Active]; clopidogrel 75 mg Oral tab 1 tab once daily [Active]; ferrous gluconate 240 mg (27 mg iron) Oral tab [Active]; losartan 100 mg Oral tab 1 tab once daily [Active]; Novolog 100 unit/mL Sub-Q soln 15 unit daily before each meal [Active]; ropinirole 0.25 mg Oral tab 1 tab twice daily [Active]; torsemide 20 mg Oral tab 3 tabs twice daily [Active]; Toujeo SoloStar 300 unit/mL (1.5 mL) subcutaneous inpn 120 unit daily [Active]; Vitamin C Oral [Active]; - PMHx: 18:36 Anemia; Diabetes - IDDM; Dialysis; Hypertension; hypertension (resolved); Renal Disease;aj - PSHx: 18:36 CABG; ; Appendectomy; aj - Immunization history:: Adult Immunizations up to date. - Social history:: Smoking status: Patient/guardian denies using tobacco. - Ebola Screening: : Patient negative for fever greater than or equal to 101.5 degrees Fahrenheit, and additional compatible Ebola Virus Disease symptoms Patient denies exposure to infectious person Patient denies travel to an Ebola-affected area in the 21 days before illness onset No symptoms or risks identified at this time. - Family history:: not pertinent. - Hospitalizations: : No recent hospitalization is reported. Screenin:50 Abuse screen: Denies threats or abuse. Denies injuries from another. Nutritional ca1 screening: No deficits noted. 18:50 Tuberculosis screening: No symptoms or risk factors identified. Fall Risk IV access (20 ca1 points). Ambulatory Aid- Crutches/Cane/Walker (15 pts). Assessment: 18:40 General: Appears in no apparent distress. uncomfortable, Behavior is calm, cooperative, ca1 appropriate for age. Pain: Denies pain. Neuro: Level of Consciousness is awake, alert, obeys commands, Oriented to person, place, time, situation. Cardiovascular: Heart tones S1 S2 present Capillary refill < 3 seconds Patient's skin is warm and dry. Cardiovascular: Parent/caregiver reports patient has had she has a defibrillator without a pacemaker. Respiratory: Reports shortness of breath at rest since 4 days ago cough that is non-productive, since 4 days ago Airway is patent Respiratory effort is even, unlabored, Respiratory pattern is regular, symmetrical, Breath sounds are clear bilaterally. GI: Abdomen is round non-distended, Peritoneal dialysis catheter capped. Fluid is drained. Site is clean and dry. Bowel sounds present X 4 quads. Abd is soft and non tender X 4 quads. Reports vomiting. : No deficits noted. No signs and/or symptoms were reported regarding the genitourinary system. EENT: No deficits noted. No signs and/or symptoms were reported regarding the EENT system. Derm: Skin is intact, is healthy with good turgor, Skin is pink, warm \\T\\ dry. Musculoskeletal: Circulation, motion, and sensation intact. Capillary refill < 3 seconds. 19:38 Reassessment: Patient appears in no apparent distress at this time. Patient and/or ca1 family updated on plan of care and expected duration. Pain level reassessed. Patient is alert, oriented x 3, equal unlabored respirations, skin warm/dry/pink. 20:37 Reassessment: Patient appears in no apparent distress at this time. Patient and/or ca1 family updated on plan of care and expected duration. Pain level reassessed. Patient is alert, oriented x 3, equal unlabored respirations, skin warm/dry/pink. 21:26 Reassessment: Patient appears in no apparent distress at this time. Patient is alert, ca1 oriented x 3, equal unlabored respirations, skin warm/dry/pink. 22:32 Reassessment: Patient appears in no apparent distress at this time. Patient and/or ca1 family updated on plan of care and expected duration. Pain level reassessed. Patient is alert, oriented x 3, equal unlabored respirations, skin warm/dry/pink. 22:43 Reassessment: Patient appears in no apparent distress at this time. Pt with significant ca1 other. Patient states feeling better. Patient states symptoms have improved. Vital Signs: 18:36 BP 105 / 63; Pulse 94; Resp 20; Temp 98.8; Pulse Ox 94% on R/A; Weight 125.19 kg; aj Height 5 ft. 5 in. (165.10 cm); 19:38 BP 122 / 61; Pulse 82; Resp 23 S; Temp 99.4; Pulse Ox 98% on 2 lpm NC; ca1 20:37 BP 108 / 63; Pulse 80; Resp 23; Temp 99.1(O); Pulse Ox 97% on 2 lpm NC; ca1 21:26 BP 125 / 77; Pulse 74; Resp 19; Temp 99.1(O); Pulse Ox 97% on 2 lpm NC; ca1 22:32 BP 137 / 71; Pulse 74; Resp 23; Temp 98.5(O); Pulse Ox 97% on R/A; ca1 18:36 Body Mass Index 45.93 (125.19 kg, 165.10 cm) aj ED Course: 18:27 Patient arrived in ED. mr 18:27 Joe Wallis MD is Private Physician. mr 18:35 Triage completed. aj 18:36 Arm band placed on left wrist. Patient placed in an exam room. aj 18:40 Viktoriya Thomas, RN is Primary Nurse. ca1 18:50 Patient has correct armband on for positive identification. Placed in gown. Bed in low ca1 position. Call light in reach. Side rails up X 1. hydroelectric station chief on. Pulse ox on. NIBP on. Warm blanket given. Head of bed elevated. 19:06 Jerome Giraldo MD is Attending Physician. rn 19:09 EKG done, by ED staff, reviewed by Jerome Giraldo MD. ca1 19:10 Oxygen administration via nasal cannula \\T\\ 2L/min Response to oxygen therapy: symptoms ca1 improved. 19:36 No provider procedures requiring assistance completed. Inserted saline lock: 20 gauge mg2 in left forearm, using aseptic technique. Blood collected. 19:46 XRAY Chest Pa And Lat (2 Views) In Process Unspecified. EDMS 22:45 IV discontinued, intact, bleeding controlled, No redness/swelling at site. Pressure ca1 dressing applied. Administered Medications: 20:08 Drug: Lasix 40 mg Route: IVP; Site: left forearm; ca1 22:43 Follow up: Urine output 400 ml; Response: No adverse reaction ca1 Output: 22:43 Urine: 400ml; Total: 400ml. ca1 Outcome: 22:09 Discharge ordered by MD. rn 22:45 Discharged to home via wheelchair, with significant other. ca1 22:45 Condition: stable 22:45 Discharge instructions given to patient, Instructed on discharge instructions, follow up and referral plans. Demonstrated understanding of instructions, follow-up care. 22:47 Patient left the ED. ca1 Signatures: Dispatcher [employer] EDMS Claudine Caban RN RN aj Rivera, Mary mr Jerome Giraldo MD MD rn Gardose, Michele, RN RN mg2 Viktoriya Thomas RN RN ca1 Corrections: (The following items were deleted from the chart) 19:37 18:50 Oxygen administration via nasal cannula \\T\\ 2L/min Response to oxygen therapy: ca1 symptoms improved. ca1 19:52 19:36 Inserted saline lock: 20 gauge in right forearm, using aseptic technique. Blood mg2 collected. mg2 20: 18:40 GI: Abdomen is round ca1 ca1 20: 18:40 Derm: Skin is intact, is healthy with good turgor, Skin is pink, warm \\T\\ dry. ca1 ca1 20:13 18:40 Musculoskeletal: Circulation, motion, and sensation intact. Capillary refill < 3 ca1 seconds, ca1 20:37 20:12 Musculoskeletal: ca1 ca1
--- NOTE | 2018-10-27 22:10 | EDPHYS ---
Physician Documentation [facility] Name: Amna Whyte Age: 63 yrs Sex: Female : 1955 Arrival Date: 10/27/2018 Time: 18:27 Bed 25 Private MD: Joe Wallis E ED Physician Jerome Giraldo HPI: 10/27 19:37 This 63 yrs old Female presents to ER via Ambulatory with complaints of Cough.rn 19:39 The patient or guardian reports cough, with no sputum. Onset: The symptoms/episode rn began/occurred 4 day(s) ago. Severity of symptoms: At their worst the symptoms were moderate, in the emergency department the symptoms are unchanged. Modifying factors: The symptoms are alleviated by nothing, the symptoms are aggravated by exertion. Associated signs and symptoms: Pertinent negatives: chest pain, diarrhea, fever. The patient has experienced similar episodes in the past. The patient has been recently seen by a physician:. REports 4 days of cough and increasing sob, missed last dialysis due to vomiting, reports has been having intermittent vomiting for months, no abd pain/diarrhea. Reports not here for vomiting. Here for cough, non-productive, no hemoptysis, no abd pain. + mild swelling. + dyspnea with exertion. Still makes urine and taking lasix. . Historical: - Allergies: 18:36 Cephalexin; aj 18:36 Latex, Natural Rubber; aj 18:36 "Petty lite"; aj - Home Meds: 18:36 amiodarone 200 mg Oral tab 1 tab once daily [Active]; aspirin 81 mg Oral TbEC 1 tab aj once daily [Active]; atorvastatin 10 mg Oral tab 1 tab once daily [Active]; carvedilol 25 mg Oral tab 1 tab 2 times per day [Active]; clopidogrel 75 mg Oral tab 1 tab once daily [Active]; ferrous gluconate 240 mg (27 mg iron) Oral tab [Active]; losartan 100 mg Oral tab 1 tab once daily [Active]; Novolog 100 unit/mL Sub-Q soln 15 unit daily before each meal [Active]; ropinirole 0.25 mg Oral tab 1 tab twice daily [Active]; torsemide 20 mg Oral tab 3 tabs twice daily [Active]; Toujeo SoloStar 300 unit/mL (1.5 mL) subcutaneous inpn 120 unit daily [Active]; Vitamin C Oral [Active]; - PMHx: 18:36 Anemia; Diabetes - IDDM; Dialysis; Hypertension; hypertension (resolved); Renal Disease;aj - PSHx: 18:36 CABG; ; Appendectomy; aj - Immunization history:: Adult Immunizations up to date. - Social history:: Smoking status: Patient/guardian denies using tobacco. - Ebola Screening: : Patient negative for fever greater than or equal to 101.5 degrees Fahrenheit, and additional compatible Ebola Virus Disease symptoms Patient denies exposure to infectious person Patient denies travel to an Ebola-affected area in the 21 days before illness onset No symptoms or risks identified at this time. - Family history:: not pertinent. - Hospitalizations: : No recent hospitalization is reported. ROS: 19:39 Constitutional: Negative for fever, chills, and weight loss, Eyes: Negative for injury, rn pain, redness, and discharge, Neck: Negative for injury, pain, and swelling, Cardiovascular: Negative for chest pain, palpitations Respiratory: + sob and cough Abdomen/GI: Negative for abdominal pain, diarrhea, and constipation, MS/Extremity: Negative for injury and deformity, Skin: Negative for injury, rash, and discoloration, Neuro: Negative for headache, weakness, numbness, tingling, and seizure. Exam: 19:39 Constitutional: This is a well developed, well nourished patient who is awake, alert, rn and in no acute distress. Sitting upright with NC. Head/Face: Normocephalic, atraumatic. Eyes: Pupils equal round and reactive to light, extra-ocular motions intact. Lids and lashes normal. Conjunctiva and sclera are non-icteric and not injected. Cornea within normal limits. Periorbital areas with no swelling, redness, or edema. ENT: MMM, no stridor Cardiovascular: Irregular rhythm, no murmur, no rub Respiratory: + diminished breath sounds at bases and worse on right base Abdomen/GI: soft, non-tender MS/ Extremity: Pulses equal, no cyanosis. Neurovascular intact. Full, normal range of motion. Equal circumference. Neuro: Awake and alert, GCS 15, oriented to person, place, time, and situation. Cranial nerves II-XII grossly intact. Motor strength 5/5 in all extremities. Sensory grossly intact. 21:00 ECG was reviewed by the Attending Physician. rn Vital Signs: 18:36 BP 105 / 63; Pulse 94; Resp 20; Temp 98.8; Pulse Ox 94% on R/A; Weight 125.19 kg; aj Height 5 ft. 5 in. (165.10 cm); 19:38 BP 122 / 61; Pulse 82; Resp 23 S; Temp 99.4; Pulse Ox 98% on 2 lpm NC; ca1 20:37 BP 108 / 63; Pulse 80; Resp 23; Temp 99.1(O); Pulse Ox 97% on 2 lpm NC; ca1 21:26 BP 125 / 77; Pulse 74; Resp 19; Temp 99.1(O); Pulse Ox 97% on 2 lpm NC; ca1 22:32 BP 137 / 71; Pulse 74; Resp 23; Temp 98.5(O); Pulse Ox 97% on R/A; ca1 18:36 Body Mass Index 45.93 (125.19 kg, 165.10 cm) aj MDM: 19:06 Patient medically screened. rn 21:03 ED course: Second ECG without acute changes compared to previous, has mild elevation rn lead III, depressions of ST 1 and AVL, no acute changes, patient denies chest pain, and complains more of respiratory symptoms. Troponin added to labs, but anticipate mild elevation due to CHF/ESRD.. 22:06 Differential Diagnosis: Bronchitis Viral Syndrome Pneumonia Other pulmonary edema, CHF. rn Data reviewed: vital signs, nurses notes, lab test result(s), EKG, radiologic studies, plain films, and as a result, I will admit patient. Counseling: I had a detailed discussion with the patient and/or guardian regarding: the historical points, exam findings, and any diagnostic results supporting the discharge/admit diagnosis, lab results, radiology results, the need for further work-up and treatment in the hospital. Response to treatment: the patient's symptoms have mildly improved after treatment, and as a result, I will admit patient. ED course: Spoke with patient, symptoms consistent with pulmonary edema, has CHF and ESRD, missed peritoneal dialysis and states that when misses dialysis she builds up fluid easily. Still denies chest pain, trop mild elevation but proportional to elevated BNP and pulmonary edema. No change in ECG. Patient states wants to go home, plans on peritoneal dialysis tonight and takes torsemide. Risks explained and understood. 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 10/27 19:25 Order name: CBC with Diff; Complete Time: 20:47 rn 10/27 19:25 Order name: Basic Metabolic Panel; Complete Time: 20:47 rn 10/27 19:25 Order name: Procalcitonin; Complete Time: 20:48 rn 10/27 19:25 Order name: PROBNP; Complete Time: 20:47 rn 10/27 19:25 Order name: Magnesium; Complete Time: 20:47 rn 10/27 20:59 Order name: Troponin (emerg Dept Use Only); Complete Time: 21:26 rn 10/27 19:25 Order name: XRAY Chest Pa And Lat (2 Views); Complete Time: 19:57 rn 10/27 19:25 Order name: IV Start; Complete Time: 19:35 rn 10/27 19:25 Order name: EKG; Complete Time: 19:27 rn 10/27 19:25 Order name: EKG - Nurse/Tech; Complete Time: 19:35 rn EC:00 Rate is 82 beats/min. Rhythm is regular. Left axis deviation noted. QRS is positive in rn lead I and negative in lead aVF. SD interval is prolonged at 222 msec. QRS interval is normal. QT interval is normal. No Q waves. T waves are Inverted in leads I, aVL. ST Segment is depressed in leads I, aVL. Clinical impression: NSR w/ Non-specific ST/T Changes and 1st degree heart block. Interpreted by me. Reviewed by me. Administered Medications: 20:08 Drug: Lasix 40 mg Route: IVP; Site: left forearm; ca1 22:43 Follow up: Urine output 400 ml; Response: No adverse reaction ca1 Disposition: 10/27/18 22:09 Discharged to Home. Impression: Pulmonary edema, Cough, End stage renal disease. - Condition is Stable. - Discharge Instructions: Pulmonary Edema, Cough, Adult. - Medication Reconciliation Form, Thank You Letter, Antibiotic Education, Prescription Opioid Use form. - Follow up: Private Physician; When: 1 - 2 days; Reason: Recheck today's complaints, Re-evaluation by your physician. - Problem is an acute exacerbation. - Symptoms have improved. Signatures: Dispatcher [employer] Claudine Lilly RN RN Jerome Ford MD MD rn Acob, JERAD Sadler RN ca1 Corrections: (The following items were deleted from the chart) 22:47 22:09 10/27/2018 22:09 Discharged to Home. Impression: Pulmonary edema; Cough; End ca1 stage renal disease. Condition is Stable. Forms are Medication Reconciliation Form, Thank You Letter, Antibiotic Education, Prescription Opioid Use. Follow up: Private Physician; When: 1 - 2 days; Reason: Recheck today's complaints, Re-evaluation by your physician. Problem is an acute exacerbation. Symptoms have improved. rn
[2018-10-27 23:44] VITALS: O2SAT 97
[2018-10-27 23:47] VITALS: BP 137/71; TEMP 98.5
--- NOTE | 2018-10-28 08:39 | EKG ---
Test Date: 2018-10-27 Test Time: 20:55:[address] Reporter: PAMELLA MEASUREMENT RESULTS: Intervals: Rate: 82 UT: 222 QRSD: 100 QT: 408 QTc: 476 [place]: P: 58 UT: 222 QRS: -11 T: 159 INTERPRETIVE STATEMENTS: Sinus rhythm with 1st degree AV block ST abnormality, non specific Consider right ventricular involvement in acute inferior infarct Abnormal ECG Compared to ECG 10/27/2018 19:07:09 Ventricular premature complex(es) no longer present Prolonged QT interval no longer present ST (T wave) deviation still present Electronically Signed On 10-28-18 08:39:09 CDT by Louis Valencia
--- NOTE | 2018-10-28 08:40 | EKG ---
Test Date: 2018-10-27 Test Time: 19:07:09 Mathematical Engineering Technician: PAMELLA MEASUREMENT RESULTS: Intervals: Rate: 91 TN: 210 QRSD: 102 QT: 400 QTc: 492 [place]: P: 63 TN: 210 QRS: -11 T: 151 INTERPRETIVE STATEMENTS: Sinus rhythm with 1st degree AV block with frequent premature ventricular complexes Marked ST abnormality, possible lateral subendocardial injury Prolonged QT Abnormal ECG Compared to ECG 04/17/2018 14:19:50 Prolonged QT interval now present Left-axis deviation no longer present Myocardial infarct finding no longer present ST (T wave) deviation still present Electronically Signed On 10-28-18 08:39:19 CDT by Louis Valencia
== END 2018-10-27 22:47 | disposition home or self-care (01) ==
LOC: ER 18:23
DX: J81.1 Chronic pulmonary edema (principal); N18.6 End stage renal disease; E11.22 Type 2 diabetes mellitus with diabetic chronic kidney disease; Z99.2 Dependence on renal dialysis
CPT/HCPCS: 93005 ×2; 85025; 80048; 36415; 83735; 84484; 84145; 83880; 71046; 96374; 99285; J1940

== ENCOUNTER 2018-11-13 18:49 | Observation (INO) | payer OTHER ==
--- OUTSIDE RECORDS SUMMARY | 2018-11-13 18:53 | XMS REPORT | Clinical Summary ---
:1955 Author Organization [facility] Address [address] [place] [address] Care Team Providers Name Role Phone Joe Wallis MD Primary Care Provider Allergies Active Allergy Reactions Severity Noted Date Comments Cephalexin Itching 01/03/2015 Latex Other (See Comments) 01/03/2015 Macrolide Antibiotics 04/21/2018 Pt. Must avoid any medication that cause QT prolongation. Pt. has a defibrillator Per [facility] (Dr. Javier). Pt must not take macrolides=interaction [...] 05/19/2018 Surgery Procedural Urrutia, Hector PCI stent [[id number] Cardiology MD Mayco (CPT)] 05/18/2018 Surgery Procedural Urrutia, Hector PCI stent [[id number] Cardiology MD Mayco (CPT)] 05/17/2018 Surgery Procedural Ururtia, Hector Left heart cath w lv Cardiology MD Mayco gram cors [[id number] (CPT)] 05/14/2018 - Hospital Encounter Intensive Care Curt Chaves Ventricular tachyarrhythmia (HCC) (Primary Dx); 05/21/2018 Sangeeth Dizziness; MD Benny Nausea and vomiting, intractability of vomiting not specified, unspecified vomiting type Harper Fuller MD Joglekar, Samir P., MD 04/22/2018 Documentation Nephrology Garrett Black MD 04/17/2018 - Hospital Encounter General Internal Jose Carlos Lugo, Syncope, unspecified 04/21/2018 Medicine syncope type (Primary Sander Huang Dx) MD Jani after 11/12/2017 Social History Tobacco Use Types Packs/Day Years [...] Taken Blood Pressure 130/62 05/21/2018 11:00 AM PEDICAB DRIVER Pulse 58 05/21/2018 11:00 AM PEDICAB DRIVER Temperature 37.5 C (99.5 F) 05/21/2018 8:00 AM PEDICAB DRIVER Respiratory Rate 26 05/21/2018 11:00 AM PEDICAB DRIVER Oxygen Saturation 96% 05/21/2018 11:00 AM PEDICAB DRIVER Inhaled Oxygen Concentration - - Weight 105 kg (231 lb 7.7 oz) 05/21/2018 4:00 AM PEDICAB DRIVER Height 165.1 cm (5' 5") 05/15/2018 12:00 AM PEDICAB DRIVER Body Mass Index 38.52 05/15/2018 12:00 AM PEDICAB DRIVER Plan of Treatment Health Maintenance Due Date Last Done Comments BREAST CANCER SCREENING 2003 COLONOSCOPY SCREENING 2003 SHINGLES VACCINES (#1) 2003 65+ PNEUMOCOCCAL VACCINE (1 of 2 - PCV13) 2018 INFLUENZA VACCINE 12/29/2018 Implants Implanted Type Area Sample Worker Device Shelf Model / Identifier Expiration Serial / Date Lot System Athrctmy Rotn 0.58in 135cm 1.5mm [address] - [id number] Cardiovascular N/A: [facility] [place]2020 [id number] / Implanted: Qty: 1 on 05/19/2018 by Hector Urrutia MD Implants N/A INTERVENTIONAL / CARDIOLOGY [id number] System Athrctmy Rotn 0.58in 135cm 1.25mm Rotalink [address] - [id number] Cardiovascular N/A: [facility] [place] 01/22/2020 [id number] / Implanted: Qty: 1 on 05/19/2018 by Hector Urrutia MD Implants N/A INTERVENTIONAL / CARDIOLOGY [id number] Stent Coronary Syst Synergy (Mr) 3.00mm X 16mm - [id number] Coronary Stents N /A: [facility] [place] 03/09/2020 [id number] / Implanted: Qty: 1 on 05/19/2018 by Hector Urrutia MD N/A INTERVENTIONAL / CARDIOLOGY [id number] Procedures Procedure Name Priority Date/Time Associated Comments Diagnosis XR CHEST 1 VW PORTABLE Routine 05/21/2018 8:54 Results for this AM PEDICAB DRIVER procedure are in the results section. POC GLUCOSE Routine 05/21/2018 7:17 Results for this AM PEDICAB DRIVER procedure are in the results section. ESTIMATED GFR Routine 05/21/2018 3:40 Results for this AM PEDICAB DRIVER procedure are in the results section. PARTIAL THROMBOPLASTIN Routine 05/21/2018 3:40 Results for this TIME (PTT) AM PEDICAB DRIVER procedure are in the results section. PROTHROMBIN TIME WITH Routine 05/21/2018 3:40 Results for this INR AM PEDICAB DRIVER procedure are in the results section. PHOSPHORUS LEVEL Routine 05/21/2018 3:40 Results for this AM PEDICAB DRIVER procedure are in the results section. MAGNESIUM LEVEL Routine 05/21/2018 3:40 Results for this AM PEDICAB DRIVER procedure are in the results section. IONIZED CALCIUM Routine 05/21/2018 3:40 Results for this AM PEDICAB DRIVER procedure are in the results section. HC COMPLETE BLD COUNT Routine 05/21/2018 3:40 Results for this W/AUTO DIFF AM PEDICAB DRIVER procedure are in the results section. BASIC METABOLIC PANEL Routine 05/21/2018 3:40 Results for this AM PEDICAB DRIVER procedure are in the results section. POC GLUCOSE Routine 05/20/2018 8:48 Results for this PM PEDICAB DRIVER procedure are in the results section. POC GLUCOSE Routine 05/20/2018 4:52 Results for this PM PEDICAB DRIVER procedure are in the results section. ECG 12-LEAD Routine 05/20/2018 3:40 Results for this PM PEDICAB DRIVER procedure are in the results section. POC GLUCOSE Routine 05/20/2018 12:19 Results for this PM PEDICAB DRIVER procedure are in the results section. POC GLUCOSE Routine 05/20/2018 8:04 Results for this AM PEDICAB DRIVER procedure are in the results section. POC GLUCOSE Routine 05/20/2018 4:53 Results for this AM PEDICAB DRIVER procedure are in the results section. XR CHEST 1 VW PORTABLE Routine 05/20/2018 4:37 Results for this AM PEDICAB DRIVER procedure are in the results section. ESTIMATED GFR Routine 05/20/2018 4:25 Results for this AM PEDICAB DRIVER procedure are in the results section. PROTHROMBIN TIME WITH Routine 05/20/2018 4:25 Results for this INR AM PEDICAB DRIVER procedure are in the results section. PARTIAL THROMBOPLASTIN Routine 05/20/2018 4:25 Results for this TIME (PTT) AM PEDICAB DRIVER procedure are in the results section. PHOSPHORUS LEVEL Routine 05/20/2018 4:25 Results for this AM PEDICAB DRIVER procedure are in the results section. MAGNESIUM LEVEL Routine 05/20/2018 4:25 Results for this AM PEDICAB DRIVER procedure are in the results section. IONIZED CALCIUM Routine 05/20/2018 4:25 Results for this AM PEDICAB DRIVER procedure are in the results section. HC COMPLETE BLD COUNT Routine 05/20/2018 4:25 Results for this W/AUTO DIFF AM PEDICAB DRIVER procedure are in the results section. BASIC METABOLIC PANEL Routine 05/20/2018 4:25 Results for this AM PEDICAB DRIVER procedure are in the results section. POC GLUCOSE Routine 05/20/2018 12:57 Results for this AM PEDICAB DRIVER procedure are in the results section. POC GLUCOSE Routine 05/19/2018 10:02 Results for this PM PEDICAB DRIVER procedure are in the results section. POC GLUCOSE Routine 05/19/2018 9:15 Results for this PM PEDICAB DRIVER procedure are in the results section. POC GLUCOSE Routine 05/19/2018 8:05 Results for this PM PEDICAB DRIVER procedure are in the results section. ACTIVATED CLOTTING Routine 05/19/2018 8:01 Results for this TIME, LOW RESPONSE PM PEDICAB DRIVER procedure are in the results section. POC GLUCOSE Routine 05/19/2018 6:01 Results for this PM PEDICAB DRIVER procedure are in the results section. POC GLUCOSE Routine 05/19/2018 5:15 Results for this PM PEDICAB DRIVER procedure are in the results section. POC GLUCOSE Routine 05/19/2018 4:27 Results for this PM PEDICAB DRIVER procedure are in the results section. CV PCI STENT Routine 05/19/2018 3:52 Results for this PM PEDICAB DRIVER procedure are in the results section. ACTIVATED CLOTTING Routine 05/19/2018 3:41 Results for this TIME, LOW RESPONSE PM PEDICAB DRIVER procedure are in the results section. ACTIVATED CLOTTING Routine 05/19/2018 3:32 Results for this TIME, LOW RESPONSE PM PEDICAB DRIVER procedure are in the results section. ACTIVATED CLOTTING Routine 05/19/2018 3:27 Results for this TIME, LOW RESPONSE PM PEDICAB DRIVER procedure are in the results section. ACTIVATED CLOTTING Routine 05/19/2018 2:56 Results for this TIME, LOW RESPONSE PM PEDICAB DRIVER procedure are in the results section. POC GLUCOSE Routine 05/19/2018 2:06 Results for this PM PEDICAB DRIVER procedure are in the results section. POC GLUCOSE Routine 05/19/2018 12:57 Results for this PM PEDICAB DRIVER procedure are in the results section. POC GLUCOSE Routine 05/19/2018 12:08 Results for this PM PEDICAB DRIVER procedure are in the results section. POC GLUCOSE Routine 05/19/2018 11:07 Results for this AM PEDICAB DRIVER procedure are in the results section. POC GLUCOSE Routine 05/19/2018 10:35 Results for this AM PEDICAB DRIVER procedure are in the results section. POC GLUCOSE Routine 05/19/2018 10:09 Results for this AM PEDICAB DRIVER procedure are in the results section. LIDOCAINE LEVEL STAT 05/19/2018 9:27 Results for this AM PEDICAB DRIVER procedure are in the results section. POC GLUCOSE Routine 05/19/2018 9:10 Results for this AM PEDICAB DRIVER procedure are in the results section. POC GLUCOSE Routine 05/19/2018 8:04 Results for this AM PEDICAB DRIVER procedure are in the results section. POC GLUCOSE Routine 05/19/2018 6:58 Results for this AM PEDICAB DRIVER procedure are in the results section. POC GLUCOSE Routine 05/19/2018 4:54 Results for this AM PEDICAB DRIVER procedure are in the results section. ESTIMATED GFR Routine 05/19/2018 4:30 Results for this AM PEDICAB DRIVER procedure are in the results section. HEPATITIS B SURFACE Routine 05/19/2018 4:30 Results for this ANTIGEN AM PEDICAB DRIVER procedure are in the results section. PHOSPHORUS LEVEL Routine 05/19/2018 4:30 Results for this AM PEDICAB DRIVER procedure are in the results section. MAGNESIUM LEVEL Routine 05/19/2018 4:30 Results for this AM PEDICAB DRIVER procedure are in the results section. IONIZED CALCIUM Routine 05/19/2018 4:30 Results for this AM PEDICAB DRIVER procedure are in the results section. HC COMPLETE BLD COUNT Routine 05/19/2018 4:30 Results for this W/AUTO DIFF AM PEDICAB DRIVER procedure are in the results section. BASIC METABOLIC PANEL Routine 05/19/2018 4:30 Results for this AM PEDICAB DRIVER procedure are in the results section. POC GLUCOSE Routine 05/19/2018 3:57 Results for this AM PEDICAB DRIVER procedure are in the results section. POC GLUCOSE Routine 05/19/2018 3:00 Results for this AM PEDICAB DRIVER procedure are in the results section. POC GLUCOSE Routine 05/19/2018 1:57 Results for this AM PEDICAB DRIVER procedure are in the results section. POC GLUCOSE Routine 05/19/2018 1:20 Results for this AM PEDICAB DRIVER procedure are in the results section. POC GLUCOSE Routine 05/18/2018 11:55 Results for this PM PEDICAB DRIVER procedure are in the results section. POC GLUCOSE Routine 05/18/2018 11:18 Results for this PM PEDICAB DRIVER procedure are in the results section. POC GLUCOSE Routine 05/18/2018 10:04 Results for this PM PEDICAB DRIVER procedure are in the results section. POC GLUCOSE Routine 05/18/2018 8:40 Results for this PM PEDICAB DRIVER procedure are in the results section. URINALYSIS SCREEN AND Routine 05/18/2018 5:40 Results for this MICROSCOPY, WITH REFLEX PM PEDICAB DRIVER procedure are in TO CULTURE the results section. GRAM STAIN Routine 05/18/2018 5:21 Results for this PM PEDICAB DRIVER procedure are in the results section. URINE CULTURE Routine 05/18/2018 5:21 Results for this PM PEDICAB DRIVER procedure are in the results section. POC GLUCOSE Routine 05/18/2018 5:20 Results for this PM PEDICAB DRIVER procedure are in the results section. POC GLUCOSE Routine 05/18/2018 2:27 Results for this PM PEDICAB DRIVER procedure are in the results section. CV PCI STENT Routine 05/18/2018 1:16 Results for this PM PEDICAB DRIVER procedure are in the results section. POC GLUCOSE Routine 05/18/2018 11:23 Results for this AM PEDICAB DRIVER procedure are in the results section. XR ABDOMEN 1 VW Routine 05/18/2018 10:57 Results for this AM PEDICAB DRIVER procedure are in the results section. POC GLUCOSE Routine 05/18/2018 10:28 Results for this AM PEDICAB DRIVER procedure are in the results section. POC GLUCOSE Routine 05/18/2018 9:04 Results for this AM PEDICAB DRIVER procedure are in the results section. POC GLUCOSE Routine 05/18/2018 8:05 Results for this AM PEDICAB DRIVER procedure are in the results section. POC GLUCOSE Routine 05/18/2018 6:53 Results for this AM PEDICAB DRIVER procedure are in the results section. POC GLUCOSE Routine 05/18/2018 6:21 Results for this AM PEDICAB DRIVER procedure are in the results section. POC GLUCOSE Routine 05/18/2018 4:57 Results for this AM PEDICAB DRIVER procedure are in the results section. ESTIMATED GFR Routine 05/18/2018 4:00 Results for this AM PEDICAB DRIVER procedure are in the results section. MAGNESIUM LEVEL Routine 05/18/2018 4:00 Results for this AM PEDICAB DRIVER procedure are in the results section. IONIZED CALCIUM Routine 05/18/2018 4:00 Results for this AM PEDICAB DRIVER procedure are in the results section. HC COMPLETE BLD COUNT Routine 05/18/2018 4:00 Results for this W/AUTO DIFF AM PEDICAB DRIVER procedure are in the results section. BASIC METABOLIC PANEL Routine 05/18/2018 4:00 Results for this AM PEDICAB DRIVER procedure are in the results section. LIDOCAINE LEVEL Timed 05/18/2018 4:00 Results for this AM PEDICAB DRIVER procedure are in the results section. POC GLUCOSE Routine 05/18/2018 3:56 Results for this AM PEDICAB DRIVER procedure are in the results section. XR CHEST 1 VW PORTABLE Routine 05/18/2018 3:55 Results for this AM PEDICAB DRIVER procedure are in the results section. POC GLUCOSE Routine 05/18/2018 2:59 Results for this AM PEDICAB DRIVER procedure are in the results section. POC GLUCOSE Routine 05/18/2018 1:53 Results for this AM PEDICAB DRIVER procedure are in the results section. POC GLUCOSE Routine 05/18/2018 1:01 Results for this AM PEDICAB DRIVER procedure are in the results section. POC GLUCOSE Routine 05/17/2018 11:01 Results for this PM PEDICAB DRIVER procedure are in the results section. POC GLUCOSE Routine 05/17/2018 9:24 Results for this PM PEDICAB DRIVER procedure are in the results section. ACTIVATED CLOTTING Routine 05/17/2018 7:43 Results for this TIME, LOW RESPONSE PM PEDICAB DRIVER procedure are in the results section. POC GLUCOSE Routine 05/17/2018 7:15 Results for this PM PEDICAB DRIVER procedure are in the results section. POC GLUCOSE Routine 05/17/2018 5:41 Results for this PM PEDICAB DRIVER procedure are in the results section. CV LEFT HEART CATH LV Routine 05/17/2018 5:16 Results for this GRAM WITH CORS PM PEDICAB DRIVER procedure are in the results section. POC GLUCOSE Routine 05/17/2018 2:56 Results for this PM PEDICAB DRIVER procedure are in the results section. POC GLUCOSE Routine 05/17/2018 2:04 Results for this PM PEDICAB DRIVER procedure are in the results section. POC GLUCOSE Routine 05/17/2018 1:05 Results for this PM PEDICAB DRIVER procedure are in the results section. POC GLUCOSE Routine 05/17/2018 12:07 Results for this PM PEDICAB DRIVER procedure are in the results section. POC GLUCOSE Routine 05/17/2018 10:51 Results for this AM PEDICAB DRIVER procedure are in the results section. ECG 12-LEAD Routine 05/17/2018 8:59 Results for this AM PEDICAB DRIVER procedure are in the results section. POC GLUCOSE Routine 05/17/2018 8:10 Results for this AM PEDICAB DRIVER procedure are in the results section. XR CHEST 1 VW PORTABLE Routine 05/17/2018 4:29 Results for this AM PEDICAB DRIVER procedure are in the results section. ESTIMATED GFR Routine 05/17/2018 3:00 Results for this AM PEDICAB DRIVER procedure are in the results section. MAGNESIUM LEVEL Routine 05/17/2018 3:00 Results for this AM PEDICAB DRIVER procedure are in the results section. IONIZED CALCIUM Routine 05/17/2018 3:00 Results for this AM PEDICAB DRIVER procedure are in the results section. HC COMPLETE BLD COUNT Routine 05/17/2018 3:00 Results for this W/AUTO DIFF AM PEDICAB DRIVER procedure are in the results section. LIDOCAINE LEVEL Routine 05/17/2018 3:00 Results for this AM PEDICAB DRIVER procedure are in the results section. COMPREHENSIVE METABOLIC Routine 05/17/2018 3:00 Results for this PANEL AM PEDICAB DRIVER procedure are in the results section. POC GLUCOSE Routine 05/16/2018 8:29 Results for this PM PEDICAB DRIVER procedure are in the results section. ESTIMATED GFR STAT 05/16/2018 5:40 Results for this PM PEDICAB DRIVER procedure are in the results section. MAGNESIUM LEVEL STAT 05/16/2018 5:40 Results for this PM PEDICAB DRIVER procedure are in the results section. IONIZED CALCIUM STAT 05/16/2018 5:40 Results for this PM PEDICAB DRIVER procedure are in the results section. BASIC METABOLIC PANEL STAT 05/16/2018 5:40 Results for this PM PEDICAB DRIVER procedure are in the results section. POC GLUCOSE Routine 05/16/2018 4:43 Results for this PM PEDICAB DRIVER procedure are in the results section. POC GLUCOSE Routine 05/16/2018 11:39 Results for this AM PEDICAB DRIVER procedure are in the results section. ECG 12-LEAD Routine 05/16/2018 9:52 Results for this AM PEDICAB DRIVER procedure are in the results section. POC GLUCOSE Routine 05/16/2018 7:47 Results for this AM PEDICAB DRIVER procedure are in the results section. ESTIMATED GFR Routine 05/16/2018 2:35 Results for this AM PEDICAB DRIVER procedure are in the results section. COMPREHENSIVE METABOLIC Routine 05/16/2018 2:35 Results for this PANEL AM PEDICAB DRIVER procedure are in the results section. MAGNESIUM LEVEL Routine 05/16/2018 2:35 Results for this AM PEDICAB DRIVER procedure are in the results section. IONIZED CALCIUM Routine 05/16/2018 2:35 Results for this AM PEDICAB DRIVER procedure are in the results section. HC COMPLETE BLD COUNT Routine 05/16/2018 2:35 Results for this W/AUTO DIFF AM PEDICAB DRIVER procedure are in the results section. POC GLUCOSE Routine 05/15/2018 8:56 Results for this PM PEDICAB DRIVER procedure are in the results section. POC GLUCOSE Routine 05/15/2018 5:40 Results for this PM PEDICAB DRIVER procedure are in the results section. POC GLUCOSE Routine 05/15/2018 5:07 Results for this PM PEDICAB DRIVER procedure are in the results section. POC GLUCOSE Routine 05/15/2018 11:29 Results for this AM PEDICAB DRIVER procedure are in the results section. XR CHEST 1 VW PORTABLE Routine 05/15/2018 9:45 Results for this AM PEDICAB DRIVER procedure are in the results section. URINALYSIS SCREEN AND STAT 05/15/2018 9:00 Results for this MICROSCOPY, WITH REFLEX AM PEDICAB DRIVER procedure are in TO CULTURE the results section. URINE CULTURE STAT 05/15/2018 9:00 Results for this AM PEDICAB DRIVER procedure are in the results section. ECG 12-LEAD Routine 05/15/2018 8:13 Results for this AM PEDICAB DRIVER procedure are in the results section. ECG 12-LEAD Routine 05/15/2018 8:13 Results for this AM PEDICAB DRIVER procedure are in the results section. POC GLUCOSE Routine 05/15/2018 7:44 Results for this AM PEDICAB DRIVER procedure are in the results section. POC GLUCOSE Routine 05/15/2018 5:00 Results for this AM PEDICAB DRIVER procedure are in the results section. TROPONIN Routine 05/15/2018 3:30 Results for this AM PEDICAB DRIVER procedure are in the results section. ESTIMATED GFR Routine 05/15/2018 3:30 Results for this AM PEDICAB DRIVER procedure are in the results section. COMPREHENSIVE METABOLIC Routine 05/15/2018 3:30 Results for this PANEL AM PEDICAB DRIVER procedure are in the results section. PARTIAL THROMBOPLASTIN Routine 05/15/2018 3:30 Results for this TIME (PTT) AM PEDICAB DRIVER procedure are in the results section. PROTHROMBIN TIME WITH Routine 05/15/2018 3:30 Results for this INR AM PEDICAB DRIVER procedure are in the results section. PHOSPHORUS LEVEL Routine 05/15/2018 3:30 Results for this AM PEDICAB DRIVER procedure are in the results section. MAGNESIUM LEVEL Routine 05/15/2018 3:30 Results for this AM PEDICAB DRIVER procedure are in the results section. IONIZED CALCIUM Routine 05/15/2018 3:30 Results for this AM PEDICAB DRIVER procedure are in the results section. HC COMPLETE BLD COUNT Routine 05/15/2018 3:30 Results for this W/AUTO DIFF AM PEDICAB DRIVER procedure are in the results section. POC GLUCOSE Routine 05/15/2018 12:19 Results for this AM PEDICAB DRIVER procedure are in the results section. TROPONIN Timed 05/14/2018 11:00 Results for this PM PEDICAB DRIVER procedure are in the results section. ECG 12-LEAD STAT 05/14/2018 10:09 Results for this PM PEDICAB DRIVER procedure are in the results section. ECG 12-LEAD STAT 05/14/2018 9:41 Results for this PM PEDICAB DRIVER procedure are in the results section. XR CHEST 1 VW PORTABLE STAT 05/14/2018 9:19 Results for this PM PEDICAB DRIVER procedure are in the results section. CT HEAD WO CONTRAST STAT 05/14/2018 8:24 Results for this PM PEDICAB DRIVER procedure are in the results section. ECG 12-LEAD STAT 05/14/2018 7:40 Results for this PM PEDICAB DRIVER procedure are in the results section. MAGNESIUM LEVEL STAT 05/14/2018 7:40 Results for this PM PEDICAB DRIVER procedure are in the results section. ESTIMATED GFR STAT 05/14/2018 7:40 Results for this PM PEDICAB DRIVER procedure are in the results section. B NATRIURETIC PEPTIDE STAT 05/14/2018 7:40 Results for this PM PEDICAB DRIVER procedure are in the results section. LIPASE LEVEL STAT 05/14/2018 7:40 Results for this PM PEDICAB DRIVER procedure are in the results section. TROPONIN STAT 05/14/2018 7:40 Results for this PM PEDICAB DRIVER procedure are in the results section. CREATINE KINASE, TOTAL STAT 05/14/2018 7:40 Results for this (CPK) PM PEDICAB DRIVER procedure are in the results section. COMPREHENSIVE METABOLIC STAT 05/14/2018 7:40 Results for this PANEL PM PEDICAB DRIVER procedure are in the results section. PARTIAL THROMBOPLASTIN STAT 05/14/2018 7:40 Results for this TIME (PTT) PM PEDICAB DRIVER procedure are in the results section. PROTHROMBIN TIME WITH STAT 05/14/2018 7:40 Results for this INR PM PEDICAB DRIVER procedure are in the results section. HC COMPLETE BLD COUNT STAT 05/14/2018 7:40 Results for this W/AUTO DIFF PM PEDICAB DRIVER procedure are in the results section. ECG ED PRELIMINARY Routine 05/14/2018 7:37 Results for this INTERPRETATION PM PEDICAB DRIVER procedure are in the results section. ECG ED PRELIMINARY Routine 05/14/2018 7:37 Results for this INTERPRETATION PM PEDICAB DRIVER procedure are in the results section. ECG ED PRELIMINARY Routine 05/14/2018 7:37 Results for this INTERPRETATION PM PEDICAB DRIVER procedure are in the results section. ID CRITICAL CARE, E/M Routine 05/14/2018 7:37 Results for this 30-74 MINUTES PM PEDICAB DRIVER procedure are in the results section. POC GLUCOSE Routine 04/21/2018 11:43 Results for this AM PEDICAB DRIVER procedure are in the results section. POC GLUCOSE Routine 04/21/2018 9:38 Results for this AM PEDICAB DRIVER procedure are in the results section. POC GLUCOSE Routine 04/21/2018 7:37 Results for this AM PEDICAB DRIVER procedure are in the results section. TROPONIN Routine 04/21/2018 6:10 Results for this AM PEDICAB DRIVER procedure are in the results section. ESTIMATED GFR Routine 04/21/2018 6:10 Results for this AM PEDICAB DRIVER procedure are in the results section. COMPREHENSIVE METABOLIC Routine 04/21/2018 6:10 Results for this PANEL AM PEDICAB DRIVER procedure are in the results section. HC COMPLETE BLD COUNT Routine 04/21/2018 6:10 Results for this W/AUTO DIFF AM PEDICAB DRIVER procedure are in the results section. POC GLUCOSE Routine 04/20/2018 8:49 Results for this PM PEDICAB DRIVER procedure are in the results section. POC GLUCOSE Routine 04/20/2018 4:27 Results for this PM PEDICAB DRIVER procedure are in the results section. POC GLUCOSE Routine 04/20/2018 1:04 Results for this PM PEDICAB DRIVER procedure are in the results section. POC GLUCOSE Routine 04/20/2018 9:01 Results for this AM PEDICAB DRIVER procedure are in the results section. POC GLUCOSE Routine 04/20/2018 6:34 Results for this AM PEDICAB DRIVER procedure are in the results section. ESTIMATED GFR Routine 04/20/2018 5:30 Results for this AM PEDICAB DRIVER procedure are in the results section. PARTIAL THROMBOPLASTIN Routine 04/20/2018 5:30 Results for this TIME (PTT) AM PEDICAB DRIVER procedure are in the results section. PROTHROMBIN TIME WITH Routine 04/20/2018 5:30 Results for this INR AM PEDICAB DRIVER procedure are in the results section. PHOSPHORUS LEVEL Routine 04/20/2018 5:30 Results for this AM PEDICAB DRIVER procedure are in the results section. MAGNESIUM LEVEL Routine 04/20/2018 5:30 Results for this AM PEDICAB DRIVER procedure are in the results section. IONIZED CALCIUM Routine 04/20/2018 5:30 Results for this AM PEDICAB DRIVER procedure are in the results section. HC COMPLETE BLD COUNT Routine 04/20/2018 5:30 Results for this W/AUTO DIFF AM PEDICAB DRIVER procedure are in the results section. BASIC METABOLIC PANEL Routine 04/20/2018 5:30 Results for this AM PEDICAB DRIVER procedure are in the results section. HEPATITIS B SURFACE AB, Routine 04/20/2018 5:30 Results for this QUANTITATIVE AM PEDICAB DRIVER procedure are in the results section. HEPATITIS B SURFACE Routine 04/20/2018 5:30 Results for this ANTIBODY AM PEDICAB DRIVER procedure are in the results section. HEPATITIS B SURFACE Routine 04/20/2018 5:30 Results for this ANTIGEN AM PEDICAB DRIVER procedure are in the results section. POC GLUCOSE Routine 04/20/2018 5:20 Results for this AM PEDICAB DRIVER procedure are in the results section. POC GLUCOSE Routine 04/20/2018 4:08 Results for this AM PEDICAB DRIVER procedure are in the results section. XR CHEST 1 VW PORTABLE Routine 04/20/2018 3:58 Results for this AM PEDICAB DRIVER procedure are in the results section. POC GLUCOSE Routine 04/20/2018 3:01 Results for this AM PEDICAB DRIVER procedure are in the results section. POC GLUCOSE Routine 04/20/2018 1:54 Results for this AM PEDICAB DRIVER procedure are in the results section. POC GLUCOSE Routine 04/20/2018 12:48 Results for this AM PEDICAB DRIVER procedure are in the results section. POC GLUCOSE Routine 04/19/2018 11:59 Results for this PM PEDICAB DRIVER procedure are in the results section. POC GLUCOSE Routine 04/19/2018 10:37 Results for this PM PEDICAB DRIVER procedure are in the results section. POC GLUCOSE Routine 04/19/2018 9:20 Results for this PM PEDICAB DRIVER procedure are in the results section. POC GLUCOSE Routine 04/19/2018 9:19 Results for this PM PEDICAB DRIVER procedure are in the results section. POC GLUCOSE Routine 04/19/2018 4:25 Results for this PM PEDICAB DRIVER procedure are in the results section. POC GLUCOSE Routine 04/19/2018 11:05 Results for this AM PEDICAB DRIVER procedure are in the results section. POC GLUCOSE Routine 04/19/2018 9:08 Results for this AM PEDICAB DRIVER procedure are in the results section. ECG 12-LEAD Routine 04/19/2018 8:18 AM PEDICAB DRIVER POC GLUCOSE Routine 04/19/2018 7:04 Results for this AM PEDICAB DRIVER procedure are in the results section. POC GLUCOSE Routine 04/19/2018 6:04 Results for this AM PEDICAB DRIVER procedure are in the results section. POC GLUCOSE Routine 04/19/2018 4:48 Results for this AM PEDICAB DRIVER procedure are in the results section. XR CHEST 1 VW PORTABLE Routine 04/19/2018 4:29 Results for this AM PEDICAB DRIVER procedure are in the results section. ESTIMATED GFR Routine 04/19/2018 4:00 Results for this AM PEDICAB DRIVER procedure are in the results section. COMPREHENSIVE METABOLIC Routine 04/19/2018 4:00 Results for this PANEL AM PEDICAB DRIVER procedure are in the results section. TROPONIN Routine 04/19/2018 4:00 Results for this AM PEDICAB DRIVER procedure are in the results section. MAGNESIUM LEVEL Routine 04/19/2018 4:00 Results for this AM PEDICAB DRIVER procedure are in the results section. PROTHROMBIN TIME WITH Routine 04/19/2018 4:00 Results for this INR AM PEDICAB DRIVER procedure are in the results section. PHOSPHORUS LEVEL Routine 04/19/2018 4:00 Results for this AM PEDICAB DRIVER procedure are in the results section. IONIZED CALCIUM Routine 04/19/2018 4:00 Results for this AM PEDICAB DRIVER procedure are in the results section. HC COMPLETE BLD COUNT Routine 04/19/2018 4:00 Results for this W/AUTO DIFF AM PEDICAB DRIVER procedure are in the results section. POC GLUCOSE Routine 04/19/2018 3:03 Results for this AM PEDICAB DRIVER procedure are in the results section. POC GLUCOSE Routine 04/19/2018 1:52 Results for this AM PEDICAB DRIVER procedure are in the results section. POC GLUCOSE Routine 04/19/2018 1:04 Results for this AM PEDICAB DRIVER procedure are in the results section. US ABDOMEN COMPLETE Routine 04/19/2018 12:54 Results for this AM PEDICAB DRIVER procedure are in the results section. POC GLUCOSE Routine 04/18/2018 11:57 Results for this PM PEDICAB DRIVER procedure are in the results section. POC GLUCOSE Routine 04/18/2018 11:10 Results for this PM PEDICAB DRIVER procedure are in the results section. POC GLUCOSE Routine 04/18/2018 9:59 Results for this PM PEDICAB DRIVER procedure are in the results section. POC GLUCOSE Routine 04/18/2018 9:01 Results for this PM PEDICAB DRIVER procedure are in the results section. POC GLUCOSE Routine 04/18/2018 8:11 Results for this PM PEDICAB DRIVER procedure are in the results section. POC GLUCOSE Routine 04/18/2018 7:17 Results for this PM PEDICAB DRIVER procedure are in the results section. LIPASE LEVEL STAT 04/18/2018 6:30 Results for this PM PEDICAB DRIVER procedure are in the results section. AMYLASE LEVEL STAT 04/18/2018 6:30 Results for this PM PEDICAB DRIVER procedure are in the results section. ESTIMATED GFR STAT 04/18/2018 6:30 Results for this PM PEDICAB DRIVER procedure are in the results section. BETA HYDROXYBUTYRATE STAT 04/18/2018 6:30 Results for this PM PEDICAB DRIVER procedure are in the results section. BASIC METABOLIC PANEL STAT 04/18/2018 6:30 Results for this PM PEDICAB DRIVER procedure are in the results section. POC GLUCOSE Routine 04/18/2018 5:19 Results for this PM PEDICAB DRIVER procedure are in the results section. ECHOCARDIOGRAM 2D Routine 04/18/2018 5:18 Results for this COMPLETE W MMODE PM PEDICAB DRIVER procedure are in SPECTRAL COLOR DOPPLER the results ([id number]) section. TROPONIN STAT 04/18/2018 4:49 Results for this PM PEDICAB DRIVER procedure are in the results section. LIDOCAINE LEVEL STAT 04/18/2018 4:49 Results for this PM PEDICAB DRIVER procedure are in the results section. ARTERIAL BLOOD GAS Routine 04/18/2018 4:49 Results for this PM PEDICAB DRIVER procedure are in the results section. HEPATITIS B SURFACE AB, Routine 04/18/2018 4:49 Results for this QUANTITATIVE PM PEDICAB DRIVER procedure are in the results section. ID INSERT Routine 04/18/2018 4:27 Syncope, Results for this CATH,ART,PERCUT,SHORTTE PM PEDICAB DRIVER unspecified syncope procedure are in RM type the results section. ARTERIAL BLOOD GAS STAT 04/18/2018 3:49 Results for this PM PEDICAB DRIVER procedure are in the results section. POC GLUCOSE Routine 04/18/2018 12:51 Results for this PM PEDICAB DRIVER procedure are in the results section. TROPONIN STAT 04/18/2018 12:11 Results for this PM PEDICAB DRIVER procedure are in the results section. POC GLUCOSE Routine 04/18/2018 9:06 Results for this AM PEDICAB DRIVER procedure are in the results section. POC GLUCOSE Routine 04/18/2018 8:01 Results for this AM PEDICAB DRIVER procedure are in the results section. POC GLUCOSE Routine 04/18/2018 7:02 Results for this AM PEDICAB DRIVER procedure are in the results section. POC GLUCOSE Routine 04/18/2018 6:07 Results for this AM PEDICAB DRIVER procedure are in the results section. ECG 12-LEAD Routine 04/18/2018 5:29 Results for this AM PEDICAB DRIVER procedure are in the results section. POC GLUCOSE Routine 04/18/2018 5:05 Results for this AM PEDICAB DRIVER procedure are in the results section. POC GLUCOSE Routine 04/18/2018 4:09 Results for this AM PEDICAB DRIVER procedure are in the results section. POC GLUCOSE Routine 04/18/2018 3:24 Results for this AM PEDICAB DRIVER procedure are in the results section. XR CHEST 1 VW PORTABLE Routine 04/18/2018 3:02 Results for this AM PEDICAB DRIVER procedure are in the results section. HEMOGLOBIN A1C Timed 04/18/2018 2:45 Results for this AM PEDICAB DRIVER procedure are in the results section. ESTIMATED GFR Timed 04/18/2018 2:45 Results for this AM PEDICAB DRIVER procedure are in the results section. BETA HYDROXYBUTYRATE STAT 04/18/2018 2:45 Results for this AM PEDICAB DRIVER procedure are in the results section. PARTIAL THROMBOPLASTIN Timed 04/18/2018 2:45 Results for this TIME (PTT) AM PEDICAB DRIVER procedure are in the results section. PROTHROMBIN TIME WITH Timed 04/18/2018 2:45 Results for this INR AM PEDICAB DRIVER procedure are in the results section. PHOSPHORUS LEVEL Timed 04/18/2018 2:45 Results for this AM PEDICAB DRIVER procedure are in the results section. IONIZED CALCIUM Timed 04/18/2018 2:45 Results for this AM PEDICAB DRIVER procedure are in the results section. TROPONIN Timed 04/18/2018 2:45 Results for this AM PEDICAB DRIVER procedure are in the results section. LACTIC ACID LEVEL, Timed 04/18/2018 2:45 Results for this SEPSIS - NOW AND REPEAT AM PEDICAB DRIVER procedure are in 2X EVERY 3 HOURS the results section. THYROID STIMULATING Timed 04/18/2018 2:45 Results for this HORMONE AM PEDICAB DRIVER procedure are in the results section. CBC WITH PLATELET AND Timed 04/18/2018 2:45 Results for this DIFFERENTIAL AM PEDICAB DRIVER procedure are in the results section. MAGNESIUM LEVEL Timed 04/18/2018 2:45 Results for this AM PEDICAB DRIVER procedure are in the results section. COMPREHENSIVE METABOLIC Timed 04/18/2018 2:45 Results for this PANEL AM PEDICAB DRIVER procedure are in the results section. LIDOCAINE LEVEL Timed 04/18/2018 2:45 Results for this AM PEDICAB DRIVER procedure are in the results section. POC GLUCOSE Routine 04/18/2018 2:27 Results for this AM PEDICAB DRIVER procedure are in the results section. POC GLUCOSE Routine 04/18/2018 1:13 Results for this AM PEDICAB DRIVER procedure are in the results section. CONSULT TO OSTOMY CARE Routine 04/17/2018 11:57 NURSE PM PEDICAB DRIVER TROPONIN Timed 04/17/2018 11:50 Results for this PM PEDICAB DRIVER procedure are in the results section. LACTIC ACID LEVEL, Timed 04/17/2018 11:50 Results for this SEPSIS - NOW AND REPEAT PM PEDICAB DRIVER procedure are in 2X EVERY 3 HOURS the results section. POC GLUCOSE Routine 04/17/2018 11:28 Results for this PM PEDICAB DRIVER procedure are in the results section. BLOOD CULTURE, AEROBIC Routine 04/17/2018 9:44 Results for this & ANAEROBIC PM PEDICAB DRIVER procedure are in the results section. POC GLUCOSE Routine 04/17/2018 9:36 Results for this PM PEDICAB DRIVER procedure are in the results section. BLOOD CULTURE, AEROBIC Routine 04/17/2018 9:35 Results for this & ANAEROBIC PM PEDICAB DRIVER procedure are in the results section. POC GLUCOSE Routine 04/17/2018 8:09 Results for this PM PEDICAB DRIVER procedure are in the results section. CT HEAD WO CONTRAST STAT 04/17/2018 8:03 Results for this PM PEDICAB DRIVER procedure are in the results section. XR CHEST 1 VW PORTABLE STAT 04/17/2018 7:21 Results for this PM PEDICAB DRIVER procedure are in the results section. LIDOCAINE LEVEL Routine 04/17/2018 7:00 Results for this PM PEDICAB DRIVER procedure are in the results section. THYROID STIMULATING Routine 04/17/2018 7:00 Results for this HORMONE PM PEDICAB DRIVER procedure are in the results section. ESTIMATED GFR STAT 04/17/2018 7:00 Results for this PM PEDICAB DRIVER procedure are in the results section. TYPE AND SCREEN Routine 04/17/2018 7:00 Results for this PM PEDICAB DRIVER procedure are in the results section. B NATRIURETIC PEPTIDE STAT 04/17/2018 7:00 Results for this PM PEDICAB DRIVER procedure are in the results section. TROPONIN STAT 04/17/2018 7:00 Results for this PM PEDICAB DRIVER procedure are in the results section. COMPREHENSIVE METABOLIC STAT 04/17/2018 7:00 Results for this PANEL PM PEDICAB DRIVER procedure are in the results section. LACTIC ACID LEVEL STAT 04/17/2018 7:00 Results for this PM PEDICAB DRIVER procedure are in the results section. PARTIAL THROMBOPLASTIN STAT 04/17/2018 7:00 Results for this TIME (PTT) PM PEDICAB DRIVER procedure are in the results section. PROTHROMBIN TIME WITH STAT 04/17/2018 7:00 Results for this INR PM PEDICAB DRIVER procedure are in the results section. PHOSPHORUS LEVEL STAT 04/17/2018 7:00 Results for this PM PEDICAB DRIVER procedure are in the results section. MAGNESIUM LEVEL STAT 04/17/2018 7:00 Results for this PM PEDICAB DRIVER procedure are in the results section. IONIZED CALCIUM STAT 04/17/2018 7:00 Results for this PM PEDICAB DRIVER procedure are in the results section. HC COMPLETE BLD COUNT STAT 04/17/2018 7:00 Results for this W/AUTO DIFF PM PEDICAB DRIVER procedure are in the results section. ECG 12-LEAD STAT 04/17/2018 6:58 Results for this PM PEDICAB DRIVER procedure are in the results section. POC GLUCOSE Routine 04/17/2018 6:50 Results for this PM PEDICAB DRIVER procedure are in the results section. after 11/12/2017 Results XR Chest 1 Vw Portable (05/21/2018 8:54 AM PEDICAB DRIVER)Only the most recent of10 resultswithin the time period is included. 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 [facility]-[id number] Procedure Note Hm Interface, Radiology Results Incoming - 05/21/2018 9:08 AM PEDICAB DRIVER EXAMINATION: XR CHEST 1 VW PORTABLE CLINICAL HISTORY: ICU pt stable with no clinical status changes COMPARISON: May 20, 2018 IMPRESSION: Transvenous fibrillator is in the left axillary fold. There is cardiomegaly, mediastinal widening and bilateral pulmonary vascular congestion with minimal edema. [facility]-[id number] Performing Organization Address City/[facility]/Zipcode Phone Number [facility] [address] [place] [address] POC glucose (05/21/2018 7:17 AM PEDICAB DRIVER)Only the most recent of112 resultswithin the time period is included. POC glucose 281 (H) 65 - 99 mg/dL ROBERTH [facility] Comment: [facility] RN Notified Meter ID: [id number] Barrel Waterer: Mart Partida Specimen Performing Organization Address [facility] Phone Number [facility] DEPARTMENT OF PATHOLOGY [address] [place] [address] Estimated GFR (05/21/2018 3:40 AM PEDICAB DRIVER)Only the most recent of15 resultswithin the time period is included. Pathologist [facility] Estimated GFR 8 (A) mL/min/1.73 LEPE [facility] Comment: m2 TOUTLE CatergoryUnitsInterpretation [facility]OSPITAL G1 >=90 Normal or high G2 60-89Mildly decreased [id number] to moderately decreased [id number] to severely decreased G4 15-29Severely decreased G5 <15Kidney failure The eGFR was calculated using the Chronic Kidney Disease Epidemiology Collaboration (CKD-EPI) equation. Interpretation is based on recommendations of the National Kidney Foundation-Kidney Disease Outcomes Quality Initiative (NKF-KDOQI) published in 2014. Specimen Plasma specimen Performing Organization Address City/[facility] Phone Number [facility] DEPARTMENT OF PATHOLOGY [address] [place] [address] Partial thromboplastin time, activated (05/21/2018 3:40 AM PEDICAB DRIVER)Only the most recent of7 resultswithin the time period is included. Pathologist [facility] PTT 33.3 23.0 - 36.0 [facility] Comment: [facility] PTT therapeutic range for unfractionated heparin is HOSPITAL 61.0-112.0 seconds which corresponds to Anti-Xa 0.3-0.7 U/ml. Specimen Blood Performing Organization Address City/[facility]/Zipcode Phone Number [facility] DEPARTMENT OF PATHOLOGY [id number] [place] [address] Prothrombin time with INR (05/21/2018 3:40 AM PEDICAB DRIVER)Only the most recent of8 resultswithin the time period is included. [facility] Prothrombin time 14.1 11.5 - 14.5 [facility] INR 1.1 LYND Comment: [facility] International Normalized Ratio (INR) is a therapeutic [facility] monitoring tool for patients who are stable on oral anticoagulant therapy. An INR of 2.0-3.0 is suggested for deep vein thrombosis/pulmonary embolism. Specimen Blood Performing Organization Address City/[facility]/Zipcode Phone Number [facility] DEPARTMENT OF PATHOLOGY [id number] [place] [address] CBC with platelet and differential (05/21/2018 3:40 AM PEDICAB DRIVER)Only the most recent of13 resultswithin the time period is included. [facility] WBC 8.1 4.5 - 11.0 k/uL [facility] RBC 3.29 (L) 4.20 - 5.50 [facility] m/uL [facility] HGB 10.0 (L) 12.0 - 16.0 [facility] g/dL [facility] HCT 29.5 (L) 37.0 - 47.0 % [facility] MCV 89.7 82.0 - 100.0 fL [facility] MCH 30.4 27.0 - 34.0 pg [facility] MCHC 33.9 31.0 - 37.0 [facility] g/dL [facility] RDW - SD 41.4 37.0 - 55.0 fL [facility] MPV 10.7 6.9 - 11.0 fL [facility] Platelet count 268 150 - 400 K/uL [facility] Nucleated RBC 0.00 /100 WBC [facility] Neutrophils 67.1 39.0 - 69.0 % [facility] Lymphocytes 19.7 (L) 25.0 - 45.0 % [facility] Monocytes 10.2 (H) 0.0 - 10.0 % [facility] Eosinophils 2.0 0.0 - 5.0 % [facility] Basophils 0.5 0.0 - 1.0 % [facility] Immature granulocytes 0.5 0.0 - 1.0 % [facility] Specimen Blood Performing Organization Address City/[facility] Phone Number [facility] DEPARTMENT OF PATHOLOGY [address] [place] [address] [place] [address] HOSPITAL Phosphorus level (05/21/2018 3:40 AM PEDICAB DRIVER)Only the most recent of8 resultswithin the time period is included. Phosphorus 5.8 (H) 2.4 - 4.5 mg/dL [facility] Specimen Plasma specimen Performing Organization Address [facility] Phone Number [facility] DEPARTMENT OF PATHOLOGY [address] [place] [address] [place] [address] HOSPITAL Magnesium level (05/21/2018 3:40 AM PEDICAB DRIVER)Only the most recent of13 resultswithin the time period is included. Magnesium 2.1 1.6 - 2.4 mg/dL [facility] Specimen Plasma specimen Performing Organization Address City/[facility] Phone Number [facility] DEPARTMENT OF PATHOLOGY [address] [place] [address] [place] [address] HOSPITAL Ionized calcium (05/21/2018 3:40 AM PEDICAB DRIVER)Only the most recent of12 resultswithin the time period is included. pH 7.39 [facility] Ionized calcium 1.02 (L) 1.11 - 1.32 [facility] mmol/L [facility] Specimen Plasma specimen Performing Organization Address City/[facility] Phone Number [facility] DEPARTMENT OF PATHOLOGY [address] [place] [address] Basic metabolic panel (05/21/2018 3:40 AM PEDICAB DRIVER)Only the most recent of7 resultswithin the time period is included. Sodium 134 (L) 135 - 148 mEq/L [facility] Potassium 3.9 3.5 - 5.0 mEq/L [facility] Chloride 97 (L) 98 - 112 mEq/L [facility] CO2 21 (L) 24 - 31 mEq/L [facility] Anion gap 16@ANIO (H) 7 - 15 mEq/L [facility] BUN 59 (H) 8 - 23 mg/dL [facility] Creatinine 5.31 (H) 0.50 - 0.90 mg/dL [facility] Glucose 286 (H) 65 - 99 mg/dL [facility] Calcium 8.5 (L) 8.8 - 10.2 mg/dL [facility] Specimen Plasma specimen Performing Organization Address [facility] Phone Number [facility] DEPARTMENT OF PATHOLOGY [address] [place] [address] ECG 12 lead (05/20/2018 3:40 PM PEDICAB DRIVER)Only the most recent of10 resultswithin the time period is included. Ventricular rate 61 [facility] Atrial rate 61 [facility] ID interval 240 [facility] QRSD interval 110 [...] 08:59,-Incomplete left bundle branch block is now [facility] MUSE present-Minimal criteria for Anterior infarct are no longer present- Specimen Narrative Performed At Performing Organization Address City/State/Zipcode Phone Number [facility] MUSE [address] [place] [address] Activated clotting time, low response (05/19/2018 8:01 PM PEDICAB DRIVER)Only the most recent of6 resultswithin the time period is included. Activated clotting 137 89 - 169 sec LYND [facility] time, low response Comment: TOUTLE Meter ID: [id number] Barrel Waterer: Dario Partida Specimen Performing Organization Address City/State/Zipcode Phone Number [facility] DEPARTMENT OF PATHOLOGY [address] [place] [address] AND GENOMIC MEDICINE [facility] [address] [place] [address] HOSPITAL Cv propagator laborer procedure (05/19/2018 3:52 PM PEDICAB DRIVER) Specimen Narrative Performed At PROCEDURE: PCI of RCA CUPID A4 [place]ian micro-puncture set was used to gain access to the right femoral artery using ultrasound guidance. Itwas exchanged for a 6 [place] short sheath. I used a 6 [place] 3DRC guide with sideholes to cannulate the [...] JASPREET-3 flow upon completion. Performing Organization Address City/[facility]/Zipcode Phone Number [facility] [address] [place] [address] Lidocaine level (05/19/2018 9:27 AM PEDICAB DRIVER)Only the most recent of6 resultswithin the time period is included. Pathologist [facility] Lidocaine 2.83 1.50 - 5.00 ug/mL [facility] Specimen Blood Performing Organization Address City/[facility]/Zipcode Phone Number [facility] DEPARTMENT OF PATHOLOGY AND [address] [place] [address] [address] Hepatitis B surface antigen (05/19/2018 4:30 AM PEDICAB DRIVER)Only the most recent of2 resultswithin the time period is included. Hepatitis B surface Non-reactive Non-reactive [facility] Specimen Blood Performing Organization Address [facility]/Zipcode Phone Number [facility] DEPARTMENT OF PATHOLOGY [address] [place] [address] AND [facility] [id number] [place] [address] HOSPITAL Urinalysis screen and microscopy, with reflex to culture (05/18/2018 5:40 PM PEDICAB DRIVER)Only the most recent of2 resultswithin the time period is included. Specimen site Reyes [facility] Color, UA Yellow [facility] Appearance, UA Cloudy [facility] Specific gravity, UA 1.025 1.001 - 1.030 [facility] pH, UA 5.0 5.0 - 9.0 [facility] Protein, UA Negative Negative [facility] Glucose, UA Negative Negative [facility] Ketones, UA Negative Negative [facility] Bilirubin, UA Negative Negative [facility] Blood, UA Large (A) Negative [facility] Nitrite, UA Negative Negative [facility] Urobilinogen, UA <2.0 <2.0 E.U./dL [facility] Leukocyte esterase, Large (A) Negative [facility] Epithelial cells, UA 3 /HPF [facility] WBC, UA 72 (H) 0 - 4 /HPF [facility] RBC, UA >200 (H) 0 - 5 /HPF [facility] Bacteria, UA Few None seen [facility] WBC clumps, UA Few (A) [facility] Yeast, UA Few (A) [facility] Yeast with None seen [facility] pseudohyphae, UA [facility] Hyaline casts, UA 2-5 /LPF [facility] Specimen Urine Performing Organization Address City/[facility] Phone Number [facility] DEPARTMENT OF PATHOLOGY [id number] [place] [address] AND [facility] [id number] [place] [address] HOSPITAL Gram stain (05/18/2018 5:21 PM PEDICAB DRIVER) Gram stain result Few WBC's [facility] Few Gram positive rods [facility] Moderate Yeast Comment: Specimen Information Specimen Source: Urine Specimen Site: Reyes Specimen Urine - Reyes Performing Organization Address City/[facility] Phone Number [facility] DEPARTMENT OF PATHOLOGY AND [address] [place] [id number] [place] [address] Urine culture (05/18/2018 5:21 PM PEDICAB DRIVER)Only the most recent of2 resultswithin the time period is included. Urine culture Mixed jose <=10-3 col/cc [facility] isolate Comment: HOSPITAL Specimen Information Specimen Source: Urine Specimen Site: Reyes Specimen Urine - Reyes Performing Organization Address City/[facility]/Zipcode Phone Number [facility] DEPARTMENT OF PATHOLOGY AND [address] [place] [address] [address] Cv propagator laborer procedure (05/18/2018 1:16 PM PEDICAB DRIVER) Specimen Narrative Performed At PCI of [place] LAD through the JONES: CEE A 4 Zambian micro-puncture set was used to gain access to the left radial artery. I introduced a 6 Zambian JONES catheter and canulated the JONES to LAD. I advanced a Luge wire into the [place] LAD which turnout to be a SLITTER CUT OFF OPERATOR. This was in a small portion of the vessel.The calcific nature of the vessel Would require rotational atherectomy. I decided against proceeding further. Will treat medically for now. Performing Organization Address [facility] Phone Number [facility] [address] [place] [address] XR Abdomen 1 Vw (05/18/2018 10:57 AM PEDICAB DRIVER) Specimen Narrative Performed At EXAMINATION: XR ABDOMEN 1 VW RADIANT INDICATION: constipation COMPARISON: 07/01/2008 IMPRESSION: A catheter overlies the pelvis and left lower abdomen. Nonobstructive bowel gas pattern. Stool burden is within normal limits. Spondylosis. [facility]-[id number] Procedure Note Interface, Radiology Results Incoming - 05/18/2018 11:22 AM PEDICAB DRIVER EXAMINATION: XR ABDOMEN 1 VW INDICATION: constipation COMPARISON: 07/01/2008 IMPRESSION: A catheter overlies the pelvis and left lower abdomen. Nonobstructive bowel gas pattern. Stool burden is within normal limits. Spondylosis. [facility]-[id number] Performing Organization Address [facility] Phone Number [facility] [address] [place] [address] Cv propagator laborer procedure (05/17/2018 5:16 PM PEDICAB DRIVER) Specimen Impressions Performed At 1. Three-vessel coronary artery disease [facility] 2. Patent JONES to LAD 3. Occluded SVG 4. Known Severe LV systolic dysfunction. PLAN: 1. PCI of the [place] LAD through the JONES 2. PCI of [...] fashion and local anesthesia given. A 4 Zambian micro-puncture set was used to gain access to the right femoral artery using ultrasound guidance.A 6 Zambian short sheath was placed in the right [...] the JONES to LAD. Subsequently a 6 Zambian pigtail catheter was advanced into the left [...] stenosis. 5. JONES to LAD: Widely Patent. [place] LAD contains severe diffuse disease. 6. SVG: Occluded SVG. 7. Left ventriculogram:Not performed. Known ejection fraction of 20% to 25%. Performing Organization Address City/State/Zipcode Phone Number [facility] [address] [place] [address] Comprehensive metabolic panel (05/17/2018 3:00 AM PEDICAB DRIVER)Only the most recent of8 resultswithin the time period is included. [facility] Sodium 137 135 - 148 mEq/L [facility] Potassium 3.8 3.5 - 5.0 mEq/L [facility] Chloride 102 98 - 112 mEq/L [facility] CO2 20 (L) 24 - 31 mEq/L [facility] Anion gap 15@ANIO 7 - 15 mEq/L [facility] BUN 57 (H) 8 - 23 mg/dL [facility] Creatinine 2.65 (H) 0.50 - 0.90 [facility] mg/dL [facility] Glucose 193 (H) 65 - 99 mg/dL [facility] Calcium 8.7 (L) 8.8 - 10.2 [facility] mg/dL [facility] Protein 5.9 (L) 6.3 - 8.3 g/dL [facility] Albumin 3.2 (L) 3.5 - 5.0 g/dL [facility] A/G ratio 1.2 0.7 - 3.8 [facility] Alkaline phosphatase 91 35 - 104 U/L [facility] AST 24 10 - 35 U/L [facility] ALT 42 5 - 50 U/L [facility] Total bilirubin 0.4 0.2 - 1.2 mg/dL [facility] Specimen Plasma specimen Performing Organization Address City/[facility]/Zipcode Phone Number [facility] DEPARTMENT OF PATHOLOGY [address] [place] [address] [place] [address] HOSPITAL Troponin (05/15/2018 3:30 AM PEDICAB DRIVER)Only the most recent of10 resultswithin the time period is included. Troponin <0.30 0.00 - 0.30 [facility] Comment: ng/mL [facility] 0.11 - 1.49 ng/mlMay indicate increased risk of acute coronary syndrome. >=1.5 ng/mlConsistent with acute myocardial infarction. The diagnostic value of a single normal or non-diagnostic result is questionable.Serial samples at 2-6 hour intervals are required to rule out acute myocardial injury. Specimen Plasma specimen Performing Organization Address City/[facility]/Zipcode Phone Number [facility] DEPARTMENT OF PATHOLOGY [address] [place] [address] AND GENOMIC MEDICINE [facility] [address] [place] [address] Head Wo Contrast (05/14/2018 8:24 PM PEDICAB DRIVER)Only the most recent of2 resultswithin the time [...] when compared with prior CT from 04/17/2018.. [facility]-[id number] Procedure Note Hm Interface, Radiology Results Incoming - 05/14/2018 8:36 PM PEDICAB DRIVER EXAMINATION: CT HEAD WO CONTRAST CLINICAL HISTORY: [...] when compared with prior CT from 04/17/2018.. [facility]-[id number] Performing Organization Address City/[facility]/Zipcode Phone Number [facility] [address] [place] [address] B natriuretic peptide (05/14/2018 7:40 PM PEDICAB DRIVER)Only the most recent of2 resultswithin the time period is included. BNP 877 (H) 0 - 100 pg/mL [facility] Specimen Blood Performing Organization Address [facility] Phone Number [facility] DEPARTMENT OF PATHOLOGY [address] [place] [address] Lipase level (05/14/2018 7:40 PM PEDICAB DRIVER)Only the most recent of2 resultswithin the time period is included. Lipase 37 13 - 60 U/L [facility] Specimen Plasma specimen Performing Organization Address [facility] Phone Number [facility] DEPARTMENT OF PATHOLOGY [address] [place] [address] Creatine kinase, total (CPK) (05/14/2018 7:40 PM PEDICAB DRIVER) Creatine kinase 95 26 - 192 U/L [facility] Specimen Plasma specimen Performing Organization Address [facility] Phone Number [facility] DEPARTMENT OF PATHOLOGY [address] [place] [address] ECG ED Preliminary Interpretation - Not an Order (05/14/2018 7:37 PM PEDICAB DRIVER)Only the most recent of3 resultswithin the time period is included. Narrative Performed At Curt Chaves MD 05/15/20182:41 AM ECG ED Preliminary Interpretation - Not an Order Performed by: Curt Chaves MD Authorized by: Curt Chaves MD ECG reviewed by ED Physician in the absence of a fundraising specialist: yes Interpretation: Interpretation: abnormal Rate: ECG rate:90 ECG rate assessment: normal Rhythm: Rhythm: sinus rhythm Ectopy: Ectopy: PVCs QRS: QRS axis:Normal QRS intervals:Normal ST segments: ST segments:Normal T waves: T waves: normal CRITICAL CARE (05/14/2018 7:37 PM PEDICAB DRIVER) Narrative Performed At Curt Chaves MD 05/15/20182:41 [...] AICD defibrillation, amiodarone with drip, cardiology consultation, production recovery operator consultation) Critical care was time spent personally [...] B surface Ab, quantitative (04/20/2018 5:30 AM PEDICAB DRIVER)Only the most recent of2 resultswithin the time period is included. [facility] Signature Hepatitis B surface >1000.00 IU/L [facility] [...] refer to MMWR May 19, 2013/Vol. 62(No. 10);-. Reference Interval: anti-HBs 9.99 IU/L or less ....... Negative 10.00 IU/L or greater .... Positive Results greater than 1,000.00 IU/L are reported as greater than 1,000.00 IU/L. This assay should not be used for blood donor screening, associated re-entry protocols, or for screening Human Cell, Tissues and Cellular and Tissue-Based Products (HCT/P). Performed by [facility], [address] [place] [address] [id number] [email or web address], Thomas Grover MD - Lab. Director Specimen Serum Performing Organization Address [facility]/Zipcode Phone Number [facility] [address] [place] [address] [facility] [address] [place] [address] Hepatitis B surface antibody (04/20/2018 5:30 AM PEDICAB DRIVER) Hepatitis B surface Reactive (A) Non-reactive [facility] Specimen Blood Performing Organization Address City/[facility]/Zipcode Phone Number [facility] DEPARTMENT OF PATHOLOGY AND [address] [place], [place] [id number] GENOMIC MEDICINE [address] [address] US Abdomen Complete (04/19/2018 12:54 AM PEDICAB DRIVER) Specimen Narrative Performed At EXAM: US ABDOMEN [...] cholecystitis. 2. No other abnormality is identified. [facility]-[id number] Procedure Note Interface, Radiology Results Incoming - 04/19/2018 1:16 AM PEDICAB DRIVER EXAM: US ABDOMEN COMPLETE CLINICAL DATA: Nausea [...] cholecystitis. 2. No other abnormality is identified. [facility]-[id number] Performing Organization Address City/State/Zipcode Phone Number [facility] [address] [place] [address] Beta hydroxybutyrate (04/18/2018 6:30 PM PEDICAB DRIVER)Only the most recent of2 resultswithin the time period is included. Beta hydroxybutyrate 0.25 0.02 - 0.27 [facility] mmol/L [facility] Specimen Blood Performing Organization Address City/[facility]/Zipcode Phone Number [facility] DEPARTMENT OF PATHOLOGY [phone] [place] [address] AND GENOMIC MEDICINE [address] Amylase level (04/18/2018 6:30 PM PEDICAB DRIVER) Amylase 9 13 - 73 U/L [facility] Specimen Plasma specimen Performing Organization Address City[facility] Phone Number [facility] DEPARTMENT OF PATHOLOGY [id number] [place] [address] AND GENOMIC [facility] [address] [place] [address] Echocardiogram complete w contrast and 3D if needed (04/18/2018 5:18 PM PEDICAB DRIVER) AoV Area, Vmax 1.40 cm2 [facility] AoV Area, VTI 1.39 cm2 [facility] AoV Mean PG 4.57 mmHg [facility] AoV Peak PG 9.15 mmHg HM [facility] AoV Vmax 1.51 m/s [facility] AoV VTI 0.25 m [facility] BSA Marquis 0.00 m2 HM [facility] BSA 0.00 m2 [facility] IVS,d 0.87 cm HM [facility] IVS/LVPW,2D 0.72 HM [facility] LA Area d A4C 19.35 cm2 [facility] LV,d 5.85 cm HM [facility] LV EF,2D 35.01 % HM [facility] LV,s 5.06 cm HM [facility] LVOT area 3.23 cm2 HM [facility] LVOT Diam,S 2.03 cm HM [facility] LVOT Vmax 0.66 m/s [facility] LVOT VTI 0.11 m [facility] LVPWD,d 1.21 cm HM [facility] TR Vpeak 2.26 mm/s [facility] MV E A ratio 1.83 HM [facility] MR Vmax 2.17 m/s HM [facility] MR peak grad 16.32 mmHg HM [facility] E wave decelartion time 184.23 msec HM [facility] MV Peak A Gideon 0.68 m/s [facility] MV valve area p 1/2 method [...] City/State/Zipcode Phone Number [facility] [address] [place] [address] Arterial blood gas (04/18/2018 4:49 PM PEDICAB DRIVER)Only the most recent of2 resultswithin the time period is included. pH, arterial 7.35 7.35 - 7.45 [facility] pCO2, arterial 41 35 - 45 mmHg [facility] pO2, arterial 119 (H) 80 - 90 mmHg [facility] Bicarbonate, 22.2 21.0 - 28.0 [facility] arterial mmol/L [facility] Base excess, -3 (L) -2 - 2 mEq/L [facility] O2 saturation, 98 95 - 100 % [facility] Specimen Blood Performing Organization Address [facility]/Zipcode Phone Number [facility] DEPARTMENT OF PATHOLOGY [address] [place] [address] AND GENOMIC MEDICINE [facility] [address] [place] [address] HOSPITAL Arterial Line Insertion (04/18/2018 4:27 PM PEDICAB DRIVER) Narrative Performed At Margret Waddell NP-C 04/18/20184:28 [...] 2x every 3 hours (04/18/2018 2:45 AM PEDICAB DRIVER)Only the most recent of2 resultswithin the time period is included. Lactic acid 1.8 0.5 - 2.2 mmol/L [facility] Specimen Plasma specimen Performing Organization Address [facility] Phone Number [facility] DEPARTMENT OF PATHOLOGY [address] [place] [address] Thyroid stimulating hormone (04/18/2018 2:45 AM PEDICAB DRIVER)Only the most recent of2 resultswithin the time period is included. TSH 3.35 0.27 - 4.20 uIU/mL [facility] Specimen Plasma specimen Performing Organization Address [facility] Phone Number [facility] DEPARTMENT OF PATHOLOGY [address] [place] [address] Hemoglobin A1c (04/18/2018 2:45 AM PEDICAB DRIVER) Hemoglobin A1C 7.8 (H) 4.0 - 6.0 % [facility] Comment: [facility] Less than 6% - Goal of therapy for Type II Diabetes Less than 7%-Goal of therapy for Type I Diabetes Less than 8%-Acceptable control for Type I or Type II Diabetes Greater than 8%-Unacceptable control; action indicated. (ADA94) Specimen Performing Organization Address City/[facility]/Zipcode Phone Number [facility] DEPARTMENT OF PATHOLOGY [address] [place] [address] Blood culture, aerobic & anaerobic (04/17/2018 9:44 PM PEDICAB DRIVER)Only the most recent of2 resultswithin the time period is included. Blood culture No growth after 5 days of incubation. [facility] isolate Comment: HOSPITAL Specimen Information Specimen Source: Blood Specimen Site: Forearm, left Specimen Blood - Forearm, left Performing Organization Address City/State/Zipcode Phone Number [facility] DEPARTMENT OF PATHOLOGY AND [address] [place] [address] [facility] [address] [place] [address] Type and screen (04/17/2018 7:00 PM PEDICAB DRIVER) ABO grouping A [facility] Rh type POS [facility] Antibody screen (gel) NEG [facility] Specimen Blood Performing Organization Address [facility] Phone Number [facility] DEPARTMENT OF PATHOLOGY [address] [place] [address] [place] [address] HOSPITAL Lactic acid level (04/17/2018 7:00 PM PEDICAB DRIVER) Lactic acid 3.2 (H) 0.5 - 2.2 mmol/L [facility] Specimen Plasma specimen Performing Organization Address [facility] Phone Number [facility] DEPARTMENT OF PATHOLOGY [address] [place] [address] [place] [address] HOSPITAL after 11/12/2017 Insurance Payer Benefit Plan / Subscriber ID Effective Dates Phone Address Type Group MEDICARE MEDICARE PART A xxxxxxxxxxx 2016-Present [place], [place] AND B HUMANA HUMANA CHOICE xxxxxxxxx 2018-Present PPO CARE PPO Advance Directives Patient has advance care planning documents on file. For more information, please contact:[address] [address]
--- OUTSIDE RECORDS SUMMARY | 2018-11-13 18:54 | XMS REPORT ---
:1955 Author Organization [facility] Address [address] [place] [address] Care Team Providers Name Role Phone Unavailable Unavailable Unavailable Payers Payer Name Policy Type Policy Number Effective Date Expiration Date Problems This patient has no known problems. Allergies, Adverse Reactions, Alerts Allergy Name Allergy Status Severity Reaction(s) Onset Inactive Treating Comments Type Date Date Clinician cephalexin DA Active MA 2015-08 00:00:0 0 latex DA Active MO 2015-08 00:00:0 0 Medications This patient has no known medications. Results Test Description Test Time Test Comments Text Results Atomic Results Result Comments GLUCOSE BEDSIDE TESTING 2018-06-30 05:42:00 Test Item Value Reference Range Comments GLUCOSE BEDSIDE TESTING (test code=GLUBED) 126 MG/DL 60-99 GLUCOSE BEDSIDE [id number] 20:59:00 Test Item Value Reference Range Comments GLUCOSE BEDSIDE TESTING (test code=GLUBED) 286 MG/DL 60-99 [id number] 18:47:00 Test Item Value Reference Range Comments PHOSPHOROUS (test code=PHOS) 6.0 MG/DL 2.5-4.5 GLUCOSE BEDSIDE [id number] 16:20:00 Test Item Value Reference Range Comments GLUCOSE BEDSIDE TESTING (test code=GLUBED) 364 MG/DL 60-99 GLUCOSE BEDSIDE [id number] 16:20:00 Test Item Value Reference Range Comments GLUCOSE BEDSIDE TESTING (test code=GLUBED) 331 MG/DL 60-99 COMPREHENSIVE METABOLIC [id number] 06:55:00 Test Item Value Reference Range Comments [...] (test 86 UNITS/L 38-126 code=ALKP) CBC W/AUTO [id number] 06:36:00 Test Item Value Reference Range Comments [...] (test code=NRBC#) 0.0 K/mm3 0.0-0.1 GLUCOSE BEDSIDE [id number] 06:17:00 Test Item Value Reference Range Comments GLUCOSE BEDSIDE TESTING (test code=GLUBED) 221 MG/DL 60-99 GLUCOSE BEDSIDE [id number] 00:22:00 Test Item Value Reference Range Comments GLUCOSE BEDSIDE TESTING (test code=GLUBED) 230 MG/DL 60-99 AB HEPATITIS B [id number] 22:59:00 Test Item Value Reference Range Comments AB HEPATITIS B SURFACE (test POSITIVE code=HBSAB) CLINICAL INTERPRETATION OF IMMUNE STATUS NEGATIVE: Inconsistent with immunity to HBV infection, less than 5.0 mIU/mL POSITIVE: Consistent with immunity to HBV infection, greater than 10.0 mIU/mL * AG HEPATITIS B [id number] 22:59:00 Test Item Value Reference Range Comments AG HEPATITIS B SURFACE (test code=HBSAG) NEGATIVE NONREACTIVE AB HEPATITIS B [id number] 22:59:00 Test Item Value Reference Range Comments AB HEPATITIS B CORE (test code=HBCAB) NEGATIVE NONREACTIVE AB HEPATITIS B [id number] 22:41:00 Test Item Value Reference Range Comments AB HEPATITIS B SURFACE (test code=HBSAB) AG HEPATITIS B [id number] 22:41:00 Test Item Value Reference Range Comments AG HEPATITIS B SURFACE (test code=HBSAG) NEGATIVE NONREACTIVE AB HEPATITIS B [id number] 22:41:00 Test Item Value Reference Range Comments AB HEPATITIS B CORE (test code=HBCAB) NONREACTIVE - XR CHEST [id number] 21:05:00 Patient Name: DEAN SAUCEDO Unit No: [id number] EXAMS: CPT CODE: [id number] XR CHEST 1V 45968 C3 TIME OF STUDY: 06/28/2018 6:29 PM [...] by Nino Gupta MD on 2018 at 2109 Reported and signed by: Nino Gupta MD CC: Kwasi Moser M.D.; Eliel Javier Technologist: Berenice Heath (RT) (AART) Transcrpt Date/Tm/Trnsp: 06/28/2018 (2104) [email or web address] Orig Print D/T: S: 06/28/2018 (2107) [facility] NAME: DEAN SAUCEDO [address] PHYS: [place] [address] : AGE: 63 SEX: F LOC: Z.364 A PHONE #: [phone] EXAM DATE: STATUS: ADM IN FAX #: [phone] RADIOLOGY NO: PAGE 1 SignedReportGLUCOSE BEDSIDE [id number] 18:09:00 Test Item Value Reference Range Comments GLUCOSE BEDSIDE TESTING (test code=GLUBED) 223 MG/DL 60-99 [id number] 13:33:00 Test Item Value Reference Range Comments ACT-ISTAT (test code=ACTI) 323 SEC 74-137 [id number] 13:33:00 Test Item Value Reference Range Comments ACT-ISTAT (test code=ACTI) 345 SEC 74-137 [id number] 13:33:00 Test Item Value Reference Range Comments ACT-ISTAT (test code=ACTI) 279 SEC 74-137 [id number] 13:33:00 Test Item Value Reference Range Comments ACT-ISTAT (test code=ACTI) 252 SEC 74-137 [id number] 13:33:00 Test Item Value Reference Range Comments ACT-ISTAT (test code=ACTI) 191 SEC 74-137 [id number] 07:57:00 Test Item Value Reference Range Comments [...] systemic embolism. 3.0 - 4.5 Comments to Aquatics Specialist: WILL BRING TO THE LABPTT [id number] 07:57:00 Test Item Value Reference Range Comments PTT ACTIVATED (test code=APTT) 25.6 SECONDS 22.0-33.0 Comments to Aquatics Specialist: WILL BRING TO THE LABBASIC METABOLIC [id number] 07:32:00 Test Item Value Reference Range Comments [...] (test code=CA) 9.0 MG/DL 8.4-10.2 Comments to Aquatics Specialist: WILL BRING TO THE LABIs this a LINE draw? [id number] 07:32:00 Test Item Value Reference Range Comments MAGNESIUM (test code=MAG) 2.3 MG/DL 1.6-2.3 Comments to Aquatics Specialist: WILL BRING TO THE LABIs this a LINE draw? [facility] W/AUTO [id number] 07:20:00 Test Item Value Reference Range Comments [...]
[2018-11-13] MEDS ORDERED: NA CHLORIDE 0.9% 1,000 ML ONE (19:47)
[2018-11-13 19:56] LABS: Absolute Lymphocytes (CBC) 1.6 K/uL (0.7-4.9); Basophils % 0.4 % (0-1.3); Eosinophils % 1.7 % (0-4.4); Hematocrit 38.2 % (36.0-45.0); Lymphocytes % 13.1 % (15.3-44.8); MPV 8.2 fL (7.6-11.3); Monocytes % 6.1 % (3.3-12.3); RBC Red Blood Cell Count 4.21 M/uL (3.86-4.86)
--- NOTE | 2018-11-13 20:02 | RAD REPORT ---
EXAM DESCRIPTION: Joss Single View11/13/2018 7:53 pm CLINICAL HISTORY: Cough COMPARISON: September 2018 FINDINGS: Mild bilateral pulmonary opacities. The heart is mildly enlarged. Pacemaker leads are in p lace. Postsurgical changes involve the chest IMPRESSION: Mild CHF
--- NOTE | 2018-11-13 20:07 | RAD REPORT ---
EXAM DESCRIPTION: CT - Head Brain Wo Cont - 11/13/2018 7:47 pm CLINICAL HISTORY: Dizziness COMPARISON: March 2018 TECHNIQUE: Computed axial tomography of the head was obtained. IV contrast was not requested. All CT scans are performed using dose optimization technique as appropriate and may include automated exposure control or mA/KV adjustment according to patient size. FINDINGS: An intracranial bleed is not seen . The ventricles are normal in caliber. No extra-axial fluid collection is noted. Fluid within the sinuses/ mastoids is not seen. IMPRESSION: No acute intracranial abnormality is seen. If patient's symptoms persist MRI of the bra in would be recommended.
[2018-11-13 20:09] LABS: Protime INR 1.11
[2018-11-13 20:23] LABS: Albumin 2.9 g/dL (3.4-5.0); Bilirubin Direct 0.2 mg/dL (0-0.2); Bilirubin Total 0.5 mg/dL (0.2-1.0); Magnesium 2.6 mg/dL (1.8-2.4); Potassium 3.8 mmol/L (3.5-5.1); Protein, Total 7.3 g/dL (6.4-8.2); Troponin (Emerg Dept Use Only) 0.05 ng/mL (0.0-0.045)
--- NOTE | 2018-11-13 20:36 | ER ---
Nurse's Notes [facility] Name: Amna Whyte Age: 63 yrs Sex: Female : 1955 Arrival Date: 11/13/2018 Time: 18:52 Bed 23 Private MD: Dustin Del Rosario Diagnosis: End stage renal disease;Syncope and collapse-near;Type 1 diabetes mellitus Presentation: 11/13 18:54 Presenting complaint: Patient states: I have been having near syncopal events, It has la1 probably happened 6-7 times. When I feel that way it feels like my heart is running away. Transition of care: patient was not received from another setting of care. Onset of symptoms was November 13, 2018. Risk Assessment: Do you want to hurt yourself or someone else? Patient reports no desire to harm self or others. Initial Sepsis Screen: Does the patient meet any 2 criteria? No. Patient's initial sepsis screen is negative. Does the patient have a suspected source of infection? No. Patient's initial sepsis screen is negative. Care prior to arrival: None. 18:54 Method Of Arrival: Wheelchair la1 18:54 Acuity: BROOK 2 la1 Historical: - Allergies: 18:53 Cephalexin; la1 18:53 Latex, Natural Rubber; la1 18:53 "Petty lite"; la1 - Home Meds: 20:38 Toujeo SoloStar 300 unit/mL (1.5 mL) subcutaneous inpn 120 unit daily [Active]; Vitamin rr5 C Oral [Active]; Vitamin D Oral [Active]; Vitamin B-12 Oral [Active]; aspirin 81 mg Oral TbEC 1 tab once daily [Active]; losartan 100 mg Oral tab 1 tab once daily [Active]; Ferate oral oral [Active]; clopidogrel 75 mg Oral tab 1 tab once daily [Active]; atorvastatin 10 mg Oral tab 1 tab once daily [Active]; atorvastatin oral oral [Active]; carvedilol 25 mg Oral tab 1 tab 2 times per day [Active]; ropinirole 0.25 mg Oral tab 1 tab twice daily [Active]; 22:37 Furosemide Oral [Active]; gabapentin oral oral [Active]; rr5 - PMHx: 18:53 Anemia; Diabetes - IDDM; Dialysis; Hypertension; hypertension (resolved); Renal Disease;la1 - Immunization history:: Adult Immunizations up to date. - Social history:: Smoking status: Patient/guardian denies using tobacco. - Ebola Screening: : No symptoms or risks identified at this time. - Family history:: not pertinent. Screenin:00 Abuse screen: Denies threats or abuse. Denies injuries from another. Nutritional rr5 screening: No deficits noted. Tuberculosis screening: No symptoms or risk factors identified. Fall Risk IV access (20 points). Gait- Normal/Bed Rest/Wheelchair (0 pts) Mental Status- Oriented to own ability (0 pts). Total Wayne Fall Scale indicates No Risk (0-24 pts). Assessment: 19:00 General: Appears in no apparent distress. comfortable, Behavior is calm, cooperative, rr5 appropriate for age. Pain: Denies pain. Neuro: Level of Consciousness is awake, alert, obeys commands, Oriented to person, place, time, situation, none It Engineer are equal bilaterally Moves all extremities. Full function Speech is normal, Facial symmetry appears normal, Reports a syncopal episode. 19:00 Cardiovascular: Capillary refill < 3 seconds Patient's skin is warm and dry. has rr5 defibrillator on her chest wall.. Dialysis shunt: in the right arm, with palpable thrill, with no erythema, with no edema, no bleeding noted. Respiratory: Airway is patent Respiratory effort is even, unlabored, Respiratory pattern is regular, symmetrical. GI: Abdomen is round distended, obese. : No signs and/or symptoms were reported regarding the genitourinary system. EENT: No signs and/or symptoms were reported regarding the EENT system. Derm: Wound noted right leg and left leg Other: covered with giacomo bandage. Musculoskeletal: Capillary refill < 3 seconds, Range of motion: intact in all extremities. 20:00 Reassessment: Patient appears in no apparent distress at this time. Patient is alert, rr5 oriented x 3, equal unlabored respirations, skin warm/dry/pink. 21:00 Reassessment: Patient appears in no apparent distress at this time. Patient is alert, rr5 oriented x 3, equal unlabored respirations, skin warm/dry/pink. no complaints made awaiting for result. 21:20 Reassessment: seen and examined by dr. garcia. planning for admission. rr5 22:00 Reassessment: confirmed to patient if she is allergic to levofloxacin she responded not rr5 that i know of. ED provider ordered if not allergic to it then you can give the medicine. patient agreed to take the medicine. 22:10 Reassessment: Patient appears in no apparent distress at this time. Patient is alert, rr5 oriented x 3, equal unlabored respirations, skin warm/dry/pink. Patient denies pain at this time. 22:30 Reassessment: Michele staff from [employer]) for the defibrillator rr5 informed to interrogate the pacemaker. staff with the name of sary returned call and said they will come tomorrow morning at 0800H not tonight. 23:10 Reassessment: snacks given with good appettite. rr5 23:28 Reassessment: Patient appears in no apparent distress at this time. Patient is alert, rr5 oriented x 3, equal unlabored respirations, skin warm/dry/pink. no LOC, no pain reported by the patient. Patient states feeling better. Patient states symptoms have improved. Vital Signs: 18:54 BP 131 / 59; Pulse 80; Resp 16; Temp 97.0; Pulse Ox 98% on R/A; Weight 105.23 kg; la1 Height 5 ft. 5 in. (165.10 cm); 20:00 BP 135 / 76; Pulse 89; Resp 15; Temp 97.3; Pulse Ox 100% on R/A; Pain 0/10; rr5 21:00 BP 141 / 62; Pulse 81; Resp 16; Pulse Ox 99% on R/A; rr5 22:00 BP 155 / 74; Pulse 74; Resp 17; Pulse Ox 99% on R/A; rr5 23:00 BP 150 / 89; Pulse 73; Resp 16; Pulse Ox 99% on R/A; rr5 23:31 BP 149 / 86; Pulse 79; Resp 18; Temp 97.5; Pulse Ox 99% ; Pain 0/10; rr5 11/14 00:00 BP 138 / 66; Pulse 71; Resp 16; Temp 97.9; Pulse Ox 99% ; Pain 0/10; rr5 11/13 18:54 Body Mass Index 38.61 (105.23 kg, 165.10 cm) [facility] ED Course: 11/13 18:52 Patient arrived in ED. as 18:52 Dustin Del Rosario MD is Private Physician. as 18:54 Arm band placed on left wrist. la1 18:55 Triage completed. la1 19:05 Antonio Wu, JERAD is Primary Nurse. rr5 19:05 Patient has correct armband on for positive identification. Placed in gown. Bed in low rr5 position. Call light in reach. Side rails up X2. ed manager on. Pulse ox on. NIBP on. 19:25 Raúl Jones MD is Attending Physician. oswaldo 19:42 Initial lab(s) drawn, by me, sent to lab. EKG done, by ED staff. Inserted saline lock: lt1 22 gauge in left antecubital area, using aseptic technique. 19:47 CT completed. Patient tolerated procedure well. Patient moved to radiology. mw3 19:47 CT Head Brain wo Cont In Process Unspecified. EDMS 19:52 X-ray completed. Patient tolerated procedure well. Patient moved back from radiology. mh1 19:54 XRAY Chest (1 view) In Process Unspecified. EDMS 20:33 Stevo Shen MD is Hospitalizing Provider. oswaldo 21:06 Urine Culture Sent. lt1 23:30 No provider procedures requiring assistance completed. Patient admitted, IV remains in rr5 place. intact, No redness/swelling at site. Administered Medications: 20:32 Not Given (Duplicate Order): NS 0.9% 1000 ml IV at 125 ml/hr continuous oswaldo 21:55 Drug: Aspirin 162 mg Route: PO; rr5 23:00 Follow up: Response: No adverse reaction rr5 22:00 Drug: levofloxacin 250 mg Volume: 50 ml; Route: IVPB; Infused Over: 60 mins; Site: left rr5 antecubital; 22:30 Follow up: Response: No adverse reaction; IV Status: Completed infusion; IV Intake: 15lwsf6 Intake: 22:30 IV: 50ml; Total: 50ml. rr5 23:30 PO: 240ml (Soft Drink); Total: 290ml. rr5 Outcome: 20:34 Decision to Hospitalize by Provider. oswaldo 23:30 Admitted to Med/surg accompanied by jewels, via stretcher, room 230, with chart, Report rr5 called to juan a 23:30 Condition: stable 23:30 Discharge instructions given to Instructed on the need for admit. 11/14 00:23 Patient left the ED. rr5 Signatures: Dispatcher [employer] EDRaúl Garcia MD MD cha Harvey, Martha 1 Rody Gonzalez Lee, RN RN la1 Sharon Dunn 3 Antonio Wu RN RN rr5 Emmy Boone lt1 Corrections: (The following items were deleted from the chart) 11/13 22:51 22:30 Reassessment: michele staff from [employer]) for the pacemaker rr5 informed to interrogate the pacemaker. staff with the name of sary returned call and said they will come tomorrow morning at 0800H not tonight. rr5
--- NOTE | 2018-11-13 20:36 | EDPHYS ---
Physician Documentation [facility] Name: Amna Whyte Age: 63 yrs Sex: Female : 1955 Arrival Date: 11/13/2018 Time: 18:52 Bed 23 Private MD: Dustin Del Rosario ED Physician Raúl Jones HPI: 11/13 20:29 This 63 yrs old Female presents to ER via Wheelchair with complaints of oswaldo Dizziness. 20:29 The patient presents with dizziness, feeling faint. Onset: The symptoms/episode oswaldo began/occurred just prior to arrival, today. Context: occurred at home. Modifying factors: The symptoms are alleviated by nothing, the symptoms are aggravated by nothing. Associated signs and symptoms: The patient has no apparent associated signs or symptoms. Severity of symptoms: At their worst the symptoms were mild in the emergency department the symptoms are unchanged. Patient's baseline: Neuro:. The patient has not experienced similar symptoms in the past. Historical: - Allergies: 18:53 Cephalexin; la1 18:53 Latex, Natural Rubber; la1 18:53 "Petty lite"; la1 - Home Meds: 20:38 Toujeo SoloStar 300 unit/mL (1.5 mL) subcutaneous inpn 120 unit daily [Active]; Vitamin rr5 C Oral [Active]; Vitamin D Oral [Active]; Vitamin B-12 Oral [Active]; aspirin 81 mg Oral TbEC 1 tab once daily [Active]; losartan 100 mg Oral tab 1 tab once daily [Active]; Ferate oral oral [Active]; clopidogrel 75 mg Oral tab 1 tab once daily [Active]; atorvastatin 10 mg Oral tab 1 tab once daily [Active]; atorvastatin oral oral [Active]; carvedilol 25 mg Oral tab 1 tab 2 times per day [Active]; ropinirole 0.25 mg Oral tab 1 tab twice daily [Active]; 22:37 Furosemide Oral [Active]; gabapentin oral oral [Active]; rr5 - PMHx: 18:53 Anemia; Diabetes - IDDM; Dialysis; Hypertension; hypertension (resolved); Renal Disease;la1 - Immunization history:: Adult Immunizations up to date. - Social history:: Smoking status: Patient/guardian denies using tobacco. - Ebola Screening: : No symptoms or risks identified at this time. - Family history:: not pertinent. ROS: 20:29 Constitutional: Negative for fever, chills, and weight loss, Eyes: Negative for injury, oswaldo pain, redness, and discharge, ENT: Negative for injury, pain, and discharge, Neck: Negative for injury, pain, and swelling, Cardiovascular: Negative for chest pain, palpitations, and edema, Respiratory: Negative for shortness of breath, cough, wheezing, and pleuritic chest pain, Abdomen/GI: Negative for abdominal pain, nausea, vomiting, diarrhea, and constipation, Back: Negative for injury and pain, : Negative for injury, bleeding, discharge, and swelling, MS/Extremity: Negative for injury and deformity, Skin: Negative for injury, rash, and discoloration, Psych: Negative for depression, anxiety, suicide ideation, homicidal ideation, and hallucinations, Allergy/Immunology: Negative for hives, rash, and allergies, Endocrine: Negative for neck swelling, polydipsia, polyuria, polyphagia, and marked weight changes, Hematologic/Lymphatic: Negative for swollen nodes, abnormal bleeding, and unusual bruising. 20:29 Cardiovascular: Positive for palpitations. 20:29 Neuro: Positive for near syncope. Exam: 20:29 Constitutional: This is a well developed, well nourished patient who is awake, alert, oswaldo and in no acute distress. Head/Face: Normocephalic, atraumatic. Eyes: Pupils equal round and reactive to light, extra-ocular motions intact. Lids and lashes normal. Conjunctiva and sclera are non-icteric and not injected. Cornea within normal limits. Periorbital areas with no swelling, redness, or edema. ENT: Nares patent. No nasal discharge, no septal abnormalities noted. Tympanic membranes are normal and external auditory canals are clear. Oropharynx with no redness, swelling, or masses, exudates, or evidence of obstruction, uvula midline. Mucous membranes moist. Neck: Trachea midline, no thyromegaly or masses palpated, and no cervical lymphadenopathy. Supple, full range of motion without nuchal rigidity, or vertebral point tenderness. No Meningismus. Chest/axilla: Normal chest wall appearance and motion. Nontender with no deformity. No lesions are appreciated. Cardiovascular: Regular rate and rhythm with a normal S1 and S2. No gallops, murmurs, or rubs. Normal PMI, no JVD. No pulse deficits. Respiratory: Lungs have equal breath sounds bilaterally, clear to auscultation and percussion. No rales, rhonchi or wheezes noted. No increased work of breathing, no retractions or nasal flaring. Abdomen/GI: Soft, non-tender, with normal bowel sounds. No distension or tympany. No guarding or rebound. No evidence of tenderness throughout. Back: No spinal tenderness. No costovertebral tenderness. Full range of motion. Skin: Warm, dry with normal turgor. Normal color with no rashes, no lesions, and no evidence of cellulitis. MS/ Extremity: Pulses equal, no cyanosis. Neurovascular intact. Full, normal range of motion. Neuro: Awake and alert, GCS 15, oriented to person, place, time, and situation. Cranial nerves II-XII grossly intact. Motor strength 5/5 in all extremities. Sensory grossly intact. Cerebellar exam normal. Normal gait. Psych: Awake, alert, with orientation to person, place and time. Behavior, mood, and affect are within normal limits. Vital Signs: 18:54 BP 131 / 59; Pulse 80; Resp 16; Temp 97.0; Pulse Ox 98% on R/A; Weight 105.23 kg; la1 Height 5 ft. 5 in. (165.10 cm); 20:00 BP 135 / 76; Pulse 89; Resp 15; Temp 97.3; Pulse Ox 100% on R/A; Pain 0/10; rr5 21:00 BP 141 / 62; Pulse 81; Resp 16; Pulse Ox 99% on R/A; rr5 22:00 BP 155 / 74; Pulse 74; Resp 17; Pulse Ox 99% on R/A; rr5 23:00 BP 150 / 89; Pulse 73; Resp 16; Pulse Ox 99% on R/A; rr5 23:31 BP 149 / 86; Pulse 79; Resp 18; Temp 97.5; Pulse Ox 99% ; Pain 0/10; rr5 11/14 00:00 BP 138 / 66; Pulse 71; Resp 16; Temp 97.9; Pulse Ox 99% ; Pain 0/10; rr5 11/13 18:54 Body Mass Index 38.61 (105.23 kg, 165.10 cm) [facility] MDM: 11/13 19:25 Patient medically screened. [facility] 20:35 Data reviewed: vital signs, nurses notes, lab test result(s), EKG, radiologic studies, [facility] CT scan, plain films. 11/13 19:29 Order name: Basic Metabolic Panel; Complete Time: 20:31 [facility] 11/13 19:29 Order name: CBC with Diff; Complete Time: 20:31 [facility] 11/13 19:29 Order name: LFT's; Complete Time: 20:31 [facility] 11/13 19:29 Order name: Magnesium; Complete Time: 20:31 [facility] 11/13 19:29 Order name: NT PRO-BNP; Complete Time: 20:31 [facility] 11/13 19:29 Order name: PT-INR; Complete Time: 20:31 [facility] 11/13 19:29 Order name: Troponin (emerg Dept Use Only); Complete Time: 20:31 [facility] 11/13 19:29 Order name: XRAY Chest (1 view); Complete Time: 20:31 [facility] 11/13 19:29 Order name: Lipase; Complete Time: 20:31 [facility] 11/13 19:29 Order name: CT Head Brain wo Cont; Complete Time: 20:31 [facility] 11/13 19:29 Order name: Urine Culture [facility] 11/13 21:07 Order name: Urine Dipstick--Ancillary (enter results) [facility] [place] 11/13 19:29 Order name: EKG; Complete Time: 19:31 [facility] 11/13 19:29 Order name: Cardiac monitoring; Complete Time: 19:41 [facility] 11/13 19:29 Order name: EKG - Nurse/Tech; Complete Time: 19:41 [facility] 11/13 19:29 Order name: IV Saline Lock; Complete Time: 19:41 [facility] 11/13 19:29 Order name: Labs collected and sent; Complete Time: 19:41 [facility] 11/13 19:29 Order name: O2 Per Protocol; Complete Time: 19:41 [facility] 11/13 19:29 Order name: O2 Sat Monitoring; Complete Time: 19:42 [facility] 11/13 19:29 Order name: Urine Dipstick-Ancillary (obtain specimen); Complete Time: 21:06 [facility] Administered Medications: 20:32 Not Given (Duplicate Order): NS 0.9% 1000 ml IV at 125 ml/hr continuous oswaldo 21:55 Drug: Aspirin 162 mg Route: PO; rr5 23:00 Follow up: Response: No adverse reaction rr5 22:00 Drug: levofloxacin 250 mg Volume: 50 ml; Route: IVPB; Infused Over: 60 mins; Site: left rr5 antecubital; 22:30 Follow up: Response: No adverse reaction; IV Status: Completed infusion; IV Intake: [id number] Disposition: 11/13/18 20:34 Hospitalization ordered by Stevo Shen for Inpatient Admission. Preliminary diagnosis are End stage renal disease, Syncope and collapse - near, Type 1 diabetes mellitus. - Bed requested for Telemetry/MedSurg (Inpatient). - Status is Inpatient Admission. rr5 - Condition is Fair. - Problem is new. - Symptoms have improved. UTI on Admission? No Signatures: Dispatcher [employer] EDMS Raúl Jones MD MD cha Attema, Lee RN RN la1 Marbella Mohr RN RN cg Antonio Wu RN RN rr5 Corrections: (The following items were deleted from the chart) 22:58 20:34 Hospitalization Ordered by Stevo Shen MD for Inpatient Admission. Preliminary cg diagnosis is End stage renal disease; Syncope and collapse - near; Type 1 diabetes mellitus. Bed requested for Telemetry/MedSurg (Inpatient). Status is Inpatient Admission. Condition is Fair. Problem is new. Symptoms have improved. UTI on Admission? No. oswaldo 11/14 00:23 11/13 22:58 11/13/2018 20:34 Hospitalization Ordered by Stevo Shen MD for Inpatient rr5 Admission. Preliminary diagnosis is End stage renal disease; Syncope and collapse - near; Type 1 diabetes mellitus. Bed requested for Telemetry/MedSurg (Inpatient). Status is Inpatient Admission. Condition is Fair. Problem is new. Symptoms have improved. UTI on Admission? No. cg
[2018-11-13] MEDS ORDERED: ASPIRIN 81 MG CHEWABLE TABLET ONE (21:29)
[2018-11-13 21:38] LABS: Urine Blood NEGATIVE (NEG); Urine Glucose NEGATIVE (NEG); Urine Protein NEGATIVE (NEG)
[2018-11-13] MEDS ORDERED: Levofloxacin500mg IV 500 MG/100 ML BAG IV ONE (21:49)
[2018-11-13] MEDS ORDERED: SUCRALFATE 1 GM TABLET ONE (21:52)
--- NOTE | 2018-11-13 23:11 | P.HP ---
Certification for Inpatient Patient admitted to: Observation With expected LOS: <2 Midnights Practitioner: I am a practitioner with admitting privileges, knowledge of patient current condition, hospital course, and medical plan of care. Services: Services provided to patient in accordance with Admission requirements found in Title 42 Section 412.3 of the Code of Federal Regulations Patient History Date of Service: 11/13/18 Reason for admission: near syncope History of Present Illness: Ms Whyte is a 63 years old woman with history of CAD s/p CABG, ICD placement, ESRD on peritoneal dialysis, HTN, who came to ED complaining of near syncope episode. Her symptoms started today. She has like 7 episodes. The patient describe that she start feeling palpitations, and then become dizzy about to faint. It last for about 1-2 minutes every time. She states that the feeling is similar when she had arrhytmia in the past and the ICD shocker several times. The patient also says that she had an ablation in the past. She is followed up in [place] by Dr Glasgow. No history of fever, chills or chest pain. EKG shows normal SR with T wave inversion in lateral leads which is not new. Lab work shows slight increase in Trop I. Allergies cephalexin monohydrate [From Keflex] Allergy (Verified 11/16/13 11:23) Rash Latex, Natural Rubber Allergy (Verified 11/16/13 11:23) Itching/Hives/Rash Macrolide Antibiotics Adverse Reaction (Verified 09/12/18 17:13) Anaphylaxis adhesive tape-silicones Allergy (Uncoded 12/04/14 12:16) Unknown tape Adverse Reaction (Uncoded 11/16/13 11:23) Itching/Hives/Rash Home medications list reviewed: Yes Home Medications: Aspirin 81 mg PO DAILY 01/16/14 Carvedilol [Coreg*] 25 mg PO DAILY 01/16/14 Ascorbic Acid [Vitamin C] 500 mg PO DAILY 09/12/18 Atorvastatin Calcium [Lipitor] 10 mg PO BEDTIME 09/12/18 Cholecalciferol (Vitamin D3) [Vitamin D3] 2,000 unit PO DAILY 09/12/18 Clindamycin HCl 300 mg PO QID 09/12/18 Clopidogrel Bisulfate [Plavix] 75 mg PO DAILY 09/12/18 Cyanocobalamin [Vitamin B-12] 1,000 mcg PO DAILY 09/12/18 Ferrous Gluconate [Ferate] 240 mg PO DAILY 09/12/18 Insulin Glargine,Hum.rec.anlog [Jody Ruby Solostar] 100 unit SQ BEDTIME Losartan Potassium 50 mg PO DAILY 09/12/18 Ropinirole HCl [Requip] 0.5 mg PO BID 09/12/18 Torsemide [Demadex] 60 mg PO BID 09/12/18 - Past Medical/Surgical History Diabetic: Yes -: CKD -: DM -: Hyperlipidemia -: HTN -: RLS -: Angina -: Lymphedema -: C-sections x2 -: CABG x2 -: cholecystectomy -: both great toe nails removed -: bilateral carpal tunnel sx -: LLE I&D -: Defibrillator -: Cardiac Stent x1 - Family History Family History: Reviewed- Non-Contributory - Social History Smoking Status: Never smoker Alcohol use: No CD- Drugs: No Caffeine use: Yes Place of Residence: Home Review of Systems 10-point ROS is otherwise unremarkable Physical Examination - Physical Exam General: Alert, In no apparent distress HEENT: Atraumatic, PERRLA, Mucous membr. moist/pink, EOMI, Sclerae nonicteric Neck: Supple, 2+ carotid pulse no bruit, No LAD, Without JVD or thyroid abnormality Respiratory: Clear to auscultation bilaterally, Normal air movement Cardiovascular: Regular rate/rhythm, Normal S1 S2 Gastrointestinal: Normal bowel sounds, No tenderness Musculoskeletal: No tenderness Integumentary: No rashes Neurological: Normal speech, Normal strength at 5/5 x4 extr, Normal tone, Normal affect Lymphatics: No axilla or inguinal lymphadenopathy - Studies Laboratory Data (last 24 hrs) 11/13/18 19:39: PT 13.1 H, INR 1.11 11/13/18 19:39: WBC 11.9 H, Hgb 12.3, Hct 38.2, Plt Count 344 11/13/18 19:39: Sodium 142, Potassium 3.8, BUN 66 H, Creatinine 2.67 H, Glucose 158 H, Magnesium 2.6 H, Total Bilirubin 0.5, AST 28, ALT 30, Alkaline Phosphatase 108, Lipase 86 Assessment and Plan - Problems (Diagnosis) (1) Near syncope Current Visit: Yes Status: Acute (2) CAD (coronary artery disease) Current Visit: Yes Status: Acute Qualifiers: Coronary Disease-Associated Artery/Lesion type: bypass graft [place] vs. transplanted heart: [place] heart Associated angina: without angina Qualified Code(s): I25.810 - Atherosclerosis of coronary artery bypass graft(s) without angina pectoris (3) ESRD on peritoneal dialysis Current Visit: Yes Status: Acute (4) Diabetes mellitus, type II Current Visit: No Status: Acute Qualifiers: Diabetes mellitus exterminator insulin use: with exterminator use Diabetes mellitus complication status: with other specified complication Qualified Code (s): E11.69 - Type 2 diabetes mellitus with other specified complication; Z79.4 - USP (current) use of insulin - Plan Will admit the patient due to near syncope episode. CT head shows no acute abnormality. I think this might be secondary to ventricular arrhythmia. Will order ICD interrogation, consult Cardiology team. - Advance Directives Does patient have a Living Will: No Does patient have a Durable POA for Healthcare: No - Code Status/Comfort Care Code Status Assessed: Yes Code Status: Full Code
[2018-11-14] MEDS ORDERED: GLUCAGON 1 MG/VIAL IM PRN (00:11)
[2018-11-14] MEDS ORDERED: D50W 25 GM/50 ML SYRINGE IV PRN (00:11)
[2018-11-14] MEDS ORDERED: ONDANSETRON 4 MG/2 ML VIAL IV PRN (00:11)
[2018-11-14 02:13] VITALS: O2SAT 95; BMI 39.6
[2018-11-14] MEDS: GABAPENTIN 100 MG CAP PO SCH ×2 (05:45→09:00)
[2018-11-14 05:50] LABS: Basophils % 0.6 % (0-1.3); Eosinophils % 2.2 % (0-4.4); Hematocrit 35.3 % (36.0-45.0); Lymphocytes % 20.3 % (15.3-44.8); MPV 8.2 fL (7.6-11.3); Monocytes % 8.6 % (3.3-12.3); RBC Red Blood Cell Count 3.93 M/uL (3.86-4.86)
[2018-11-14] MEDS: INSULIN -REGULAR HUMAN 50 UNIT/0.5 ML ML SQ SCH ×2 (07:30→12:33)
[2018-11-14 08:06] LABS: Urine Appearance CLEAR; Urine Bilirubin NEGATIVE (NEG); Urine Blood NEGATIVE (NEG); Urine Color YELLOW; Urine Glucose NEGATIVE (NEG); Urine Protein NEGATIVE (NEG); Urine Specific Gravity 1.015 (1.005-1.030)
[2018-11-14 08:11] LABS: Urine Microscopic Reflex ORDER UMIC
[2018-11-14 08:27] VITALS: TEMP 97.2
[2018-11-14 08:27] LABS: Urine Bacteria >50 /HPF (<20); Urine Culture Reflex Order REFLEXED; Urine RBC <5 /HPF (NONE SEEN)
[2018-11-14] MEDS ORDERED: GABAPENTIN 100 MG CAP PO SCH (09:00)
--- NOTE | 2018-11-14 09:09 | EKG ---
Test Date: 2018-11-13 Test Time: 19:17:07 [facility]: [facility] MEASUREMENT RESULTS: Intervals: Rate: 81 NM: 228 QRSD: 108 QT: 416 QTc: 483 [place]: P: 61 NM: 228 QRS: -10 T: 155 INTERPRETIVE STATEMENTS: Sinus rhythm with 1st degree AV block ST elevation, consider inferior injury or or pericarditis or early repolarization Consider right ventricular involvement in acute inferior infarct Abnormal ECG Compared to ECG 10/27/2018 20:55:20 No significant changes Electronically Signed On 11-14-18 09:08:20 CDT by Louis Valencia
[2018-11-14] MEDS ORDERED: CARVEDILOL 25 MG TAB PO SCH (10:32)
[2018-11-14] MEDS ORDERED: SILVER SULFADIAZINE 1% 50 GM TOP SCH (12:00)
[2018-11-14 12:39] VITALS: BP 134/63
[2018-11-14] MEDS ORDERED: ROPINIROLE HCL 0.25 MG TAB PO SCH (14:00)
--- NOTE | 2018-11-14 14:07 | CON ---
Chief Complaint: Near syncope. History Of Present Illness: Mrs. Whyte is 63. She has severe heart disease with severe coronary hear t disease, very depressed ejection fraction. She has a defibrillator. In the past few months, she h as had a repeat stent put in by Dr. Saunders. She has had several VT ablation procedures, adjustment of her defibrillator by Dr. Javier. She comes to the hospital because she has had several near synco pal episodes and 1 defibrillator shock. Interrogation of the defibrillator reveals 21 episodes of VT that had to be pace terminated or shocked. All were attempted to be pace terminated, but the 1 shoc k. The patient does not actually recall, it might occur during the sleep, but these started several days ago. She is not having chest pain or shortness of breath. Physical Examination: General: She is 5 feet 5 inches, 238 pounds. Morbidly obese. HEENT: Normal. Lungs: No significant crackles or wheezes. Heart: Reveals regular rate and rhythm. The apical impulse is laterally displaced. I do not apprec iate a murmur. Extremities: 2+ edema. There are lot of venous stasis type ulcers, look like they are under the car e [facility]. Laboratory Data: Reveals a normal complete blood count. Her creatinine is 2.59 this morning it was 2.67 yesterday. Potassium levels are normal. Magnesium levels are normal to high. Troponins are el evated. N-terminal proBNP is elevated. Blood sugars have been from 158-257. Allergies: SHE IS ALLERGIC TO CEPHALEXIN, LATEX, AND NATURAL RUBBER. SHE HAD NUMEROUS DEFIBRILLATOR SHOCKS WHEN SHE TOOK AZITHROMYCIN. SO WE SHOULD CONSIDER HER ALLERGIC TO THAT WELL. Social History: She is not a tobacco user now. Impression: My impression is that the patient has ventricular tachycardia that is uncontrolled. I t hink she needs to go back to her toy mechanic and make a decision about how to perhaps get thi s under better control. She is presently not on amiodarone, but starting that would be a decision fo r Dr. Javier, her toy mechanic. She may need more ventricular tachycardia ablations or initia tion of amiodarone or mexiletine. SH/MODL Voice ID: [id number] Report ID: [id number]
[2018-11-14] MEDS ORDERED: FUROSEMIDE 40 MG TABLET PO SCH (17:00)
[2018-11-14] MEDS ORDERED: INSULIN GLARGINE 100 UNITS/ML SQ SCH (21:00)
[2018-11-14] MEDS ORDERED: INSULIN GLARGINE HUM REC ANLOG 100 UNIT SQ SCH (21:00)
[2018-11-14] MEDS ORDERED: TORSEMIDE 20 MG TAB PO SCH (21:00)
[2018-11-14] MEDS ORDERED: ATORVASTATIN 10 MG TAB PO SCH (21:00)
--- NOTE | 2018-11-14 22:28 | P.CNS ---
Date of Consult: 11/14/18 Reason for Consult: ESRD Requesting Physician: Juanito Danielle Chief Complaint: near syncope History of Present Illness: Ms Whyte is a 63 years old woman with history of CAD s/p CABG, ICD placement, ESRD on peritoneal dialysis, HTN, who came to ED complaining of near syncope episode. Her symptoms started today. She has like 7 episodes. The patient describe that she start feeling palpitations, and then become dizzy about to faint. It last for about 1-2 minutes every time. She states that the feeling is similar when she had arrhytmia in the past and the ICD shocker several times. The patient also says that she had an ablation in the past. She is followed up in [place] by Dr Glasgow. No history of fever, chills or chest pain. EKG shows normal SR with T wave inversion in lateral leads which is not new. Lab work shows slight increase in Trop I. 20:29 This 63 yrs old Female presents to ER via Wheelchair with complaints of oswaldo Dizziness. 20:29 The patient presents with dizziness, feeling faint. Onset: The symptoms/ episode oswaldo began/occurred just prior to arrival, today. Context: occurred at home. Modifying factors: The symptoms are alleviated by nothing, the symptoms are aggravated by nothing. Associated signs and symptoms: The patient has no apparent associated signs or symptoms. Severity of symptoms: At their worst the symptoms were mild in the emergency department the symptoms are unchanged. Patient's baseline: Neuro:. The patient has not experienced similar symptoms in the past. Allergies cephalexin monohydrate [From Keflex] Allergy (Verified 11/16/13 11:23) Rash Latex, Natural Rubber Allergy (Verified 11/16/13 11:23) Itching/Hives/Rash Macrolide Antibiotics Adverse Reaction (Verified 09/12/18 17:13) Anaphylaxis adhesive tape-silicones Allergy (Uncoded 12/04/14 12:16) Unknown tape Adverse Reaction (Uncoded 11/16/13 11:23) Itching/Hives/Rash Home medications list reviewed: Yes Home Medications: Aspirin 81 mg PO DAILY 01/16/14 Carvedilol [Coreg*] 25 mg PO BID 01/16/14 Ascorbic Acid [Vitamin C] 500 mg PO DAILY 09/12/18 Atorvastatin Calcium [Lipitor] 10 mg PO BEDTIME 09/12/18 Cholecalciferol (Vitamin D3) [Vitamin D3] 1,000 unit PO DAILY 09/12/18 Clopidogrel Bisulfate [Plavix] 75 mg PO DAILY 09/12/18 Cyanocobalamin [Vitamin B-12] 1,000 mcg PO DAILY 09/12/18 Losartan Potassium 100 mg PO DAILY 09/12/18 Ropinirole HCl [Requip] 0.25 mg PO TID 09/12/18 Ferrous Gluconate [Ferate] 240 mg PO DAILY 11/14/18 Furosemide 80 mg PO BID 11/14/18 Gabapentin 100 mg PO DAILY 11/14/18 Insulin Glargine,Hum.rec.anlog [Lantus Solostar] 80 unit SQ BEDTIME 11/14/18 - Past Medical/Surgical History Diabetic: Yes -: CKD -: DM -: Hyperlipidemia -: HTN -: RLS -: Angina -: Lymphedema -: C-sections x2 -: CABG x2 -: cholecystectomy -: both great toe nails removed -: bilateral carpal tunnel sx -: LLE I&D -: Defibrillator -: Cardiac Stent x1 - Social History Smoking Status: Never smoker Alcohol use: No CD- Drugs: No Caffeine use: No Place of Residence: Home Review of Systems 10-point ROS is otherwise unremarkable General: Weakness, Malaise Respiratory: SOB with Excertion Cardiovascular: Edema Neurological: Weakness Physical Examination Temp Pulse Resp BP Pulse Ox 97.2 F 79 18 134/63 99 11/14/18 12:00 11/14/18 12:00 11/14/18 12:00 11/14/18 12:00 11/14/18 12:00 General: Oriented x3, Cooperative HEENT: Atraumatic Neck: Supple Respiratory: Clear to auscultation bilaterally Cardiovascular: Regular rate/rhythm, No rubs, Edema Gastrointestinal: Soft and benign, Non-distended, No guarding Musculoskeletal: No clubbing, No contractures Integumentary: No rashes, No cyanosis Neurological: Normal speech Blood work reviewed in the chart. Cr 2.67 Imagings Data: EXAM DESCRIPTION: Joss Single View11/13/2018 7:53 pm CLINICAL HISTORY: Cough COMPARISON: September 2018 FINDINGS: Mild bilateral pulmonary opacities. The heart is mildly enlarged. Pacemaker leads are in place. Postsurgical changes involve the chest IMPRESSION: Mild CHF Conclusions/Impression: A/ ESRD on HD. HTN with CKD/ CHF. DM II with CKD. Diastolic CHF, chronic. Anemia in CKD. MARILYN/ Secondary HyperPTH. Arrhythmia with defribillator activation. P/ Continue current POC and Medications. Will arrange PD as needed. Possible transfer for electrophysiology. Restart home medications as indicated. No NSAIDs. AM labs. Daily weight. Thank you kindly for the consultation.
--- NOTE | 2018-11-15 05:11 | DS ---
Date of Discharge: 11/14/2018 Discharge Diagnoses: 1.Near syncope. 2.Ventricular tachycardia, status post defibrillator discharge. 3.Coronary artery disease, [place] artery and [place] heart, without angina, status post coronary mary ann ry bypass graft. 4.End-stage renal disease, on peritoneal dialysis. 5.Diabetes mellitus type 2 with long-term use of insulin with chronic kidney disease, on dialysis. 6.Morbid obesity. 7.Mixed hyperlipidemia. 8.Essential hypertension. 9.Restless legs syndrome. 10.Chronic lymphedema. 11.Bilateral acute on chronic leg wounds, likely venous stasis ulcers. Hospital Course: The patient is a 63-year-old female with complicated medical history, comes in with a near syncopal episode. The patient felt palpitations, became dizzy and felt faint. The patient s tates that her defibrillator also went off and shocked her several times. The patient has seen Dr. Ridge Javier of [facility] and has had ablations in the past and follows up with Dr Maya Saunders in [place]. The patient's workup revealed elevated troponin level 0.07, 0.05. Kidney fun ction was around her baseline. She had an elevated white count of 11.9. The patient also had a posi tive UA. She was seen by a artist consultant, Dr. Valencia. Her defibrillator was interrogated by the [employer] contract representative and she was found to have 20 episodes of ventricular tachycardia, which were terminated by shock. Also had one episode that was not able to be terminated and therefore was shocked. The patient was recommended to be transferred to [facility] as the patient will require pump technician. Dr. Javier was contacted, the patient's primary pump technician. He agreed with transfer and the patient was sent to [facility] for higher level of care. Physical Examination: General: Awake, alert, and oriented x3. Morbidly obese female. CV: S1, S2. Respiratory: Moving air well bilaterally. Abdomen: Soft, nontender, nondistended. Positive bowel sounds. Extremities: No clubbing or cyanosis. The patient has lower extremity edema. Neurologic: Nonfocal. Skin: The patient has multiple chronic venous stasis ulcerations on bilateral legs with some pustula r discharge with Silvadene dressings in place. Total time spent transferring the patient was 47 minutes. SA/MODL Voice ID: [id number] Report ID: [id number]
[2018-11-15] MEDS ORDERED: FERROUS GLUCONATE 324 MG TAB PO SCH (09:00)
[2018-11-15] MEDS ORDERED: LOSARTAN POTASSIUM 50 MG TABLET PO SCH (09:00)
[2018-11-15] MEDS ORDERED: ASPIRIN 81 MG CHEWABLE TABLET PO SCH (10:32)
[2018-11-15] MEDS ORDERED: CLOPIDOGREL 75 MG TABLET PO SCH (10:32)
== END 2018-11-14 13:35 | disposition short-term general hospital (02) ==
LOC: ER 18:49 → 2ND 23:23
PROVIDERS: ADMIT Internal Medicine; ATTEND Internal Medicine
DX: R55 Syncope and collapse (principal); I47.2 Ventricular tachycardia; I25.10 Atherosclerotic heart disease of native coronary artery without angina pectoris; I13.2 Hypertensive heart and chronic kidney disease with heart failure and with stage 5 chronic kidney disease, or end stage renal disease; E11.22 Type 2 diabetes mellitus with diabetic chronic kidney disease; N18.6 End stage renal disease; I50.32 Chronic diastolic (congestive) heart failure; E66.01 Morbid (severe) obesity due to excess calories; Z68.39 Body mass index [BMI] 39.0-39.9, adult; E78.2 Mixed hyperlipidemia; G25.81 Restless legs syndrome; I89.0 Lymphedema, not elsewhere classified; I83.009 Varicose veins of unspecified lower extremity with ulcer of unspecified site; L97.909 Non-pressure chronic ulcer of unspecified part of unspecified lower leg with unspecified severity; I87.8 Other specified disorders of veins; Z95.1 Presence of aortocoronary bypass graft; Z95.810 Presence of automatic (implantable) cardiac defibrillator; Z91.040 Latex allergy status
CPT/HCPCS: 96365; 93005; 87088; 87070 ×2; 85025 ×2; 87086; 80048 ×2; 36415; 83735; 87205 ×2; 85610; 82962 ×3; 80076; 81003; 84484 ×3; 83690; 83880; 70450; 71045; 99285; J7030; G0378 ×2; 81015